=== PATIENT | male | born 1930 | race Caucasian/White ===

== ENCOUNTER → 2016-05-10 | Outpatient (CLI) | payer BC ==
[~2016-05-10] MED LIST: ACET-1311 PO; DONE10TA12 PO; HYDR-5688 PO; LVNIS30 SQ; NMN10 PO; OSEL30CA PO; POLY335019 PO; VENL150T33 PO; [UNRECOGNIZED DRUG - CODE] PO
[2016-05-10 15:38] LABS: URINE APPEARANCE TURBID (CLEAR); URINE BILIRUBIN NEG (NEG); URINE COLOR YELLOW; URINE EPITHELIAL CELL AUTO 0-5 /lpf (0-5); URINE NITRITE NEG (NEG); URINE SPECIFIC GRAVITY 1.021 (1.000-1.030); UROBILINOGEN NEG (NEG)
[2016-05-10 15:40] LABS: MANUAL MICROSCOPIC REQUIRED? NO; REVIEW REQ? NO
== END | disposition home or self-care (01) ==
LOC: C.LABOUTLO 14:13
PROVIDERS: ATTEND Internal Medicine
DX: R41.0 Disorientation, unspecified (principal)

== ENCOUNTER 2016-06-02 11:50 | Inpatient (IN) | payer BC, OTHER ==
[~2016-06-02] VITALS: Ht 172.7 cm; Wt 64.2 kg
[~2016-06-02 11:50] MED LIST changes: -HYDR-5688 PO; -LVNIS30 SQ; -OSEL30CA PO; -[UNRECOGNIZED DRUG - CODE] PO
--- NOTE | 2016-06-02 12:12 | EMERGENCY ROOM VISIT NOTE ---
History Report prepared by Josee: Dae Gastelum Under the Supervision of: Dr. Vik Parks M.D. First contact with patient: 12:00 Chief Complaint: LEG PAIN,LEG INJURY Stated Complaint: LEFT UPPER LEG/HIP PAIN UNABLE TO WALK History of Present Illness The patient is a 85 year old male who presents to the Emergency Room with complaints of sharp left hip pain that began a couple of days ago. He rates his pain a 5/10 in severity. He is a resident at [facility], and he is on the dementia floor. This history is limited, but provided by his son due to the patient's dementia. The patient was found on the floor this morning. They are unsure if he fell, but they believe that he did due to him being on the floor. They deny any loss of consciousness. The patient's pain worsens with movement and weight bearing. Source of History: family History Limited By: AMS Onset: a couple of days ago Position: leg (left) Symptom Intensity: 5/10 Quality: sharp Timing: worsening Modifying Factors (Worsening): movement, other (weight) Associated Symptoms: No LOC Review of Systems Limited due to AMS. Please see Additional Medical History Sheet. Past Medical & Surgical Medical Problems: (1) Dementia (2) Pneumonia Family History Omitted due to patient age Social History Smoking Status: Never Smoker Smokeless Tobacco Use: No Drug Use: none Housing Status: assisted living Occupation Status: retired Current/Historical Medications Scheduled Donepezil Hydrochloride (Aricept), 10 MG PO HS Memantine (Namenda), 10 MG PO BID Oseltamivir Phosphate (Tamiflu), 1 CAP PO QPM Polyethylene Glycol 3350 (Miralax), 17 GM PO BID Venlafaxine Hcl (Venlafaxine Hcl Er), 150 MG PO DAILY Scheduled PRN Acetaminophen (Tylenol), 325 MG PO Q4H PRN for Fever Acetaminophen (Tylenol), 325 MG PO Q6 PRN for Pain Allergies Coded Allergies: No Known Allergies (Unverified , 03/09/16) Physical Exam Vital Signs Date Time Temp Pulse Resp B/P Pulse Ox O2 Delivery O2 Flow Rate FiO2 06/02/16 17:12 72 17 130/68 93 Room Air 06/02/16 13:34 17 158/70 06/02/16 11:53 36.3 79 18 143/74 93 Room Air Physical Exam GENERAL: Patient awake, alert. Patient follows commands. Patient does not appear toxic. Patient is cooperative. Consistent with moderate to severe dementia. Patient is adequately hydrated and well-nourished. SKIN: No erythema, pallor, cyanosis or rash HEENT: Normal head, pupils equal, reactive to light and accommodation. LUNGS: Clear to auscultation. No wheezes, no rales, no rhonchi. HEART: No murmurs. No gallops. No rubs ABDOMEN: No masses, no rebound, no hepatomegaly or splenomegaly. PELVIS: Negative to pelvic rock. Tenderness to left buttock area. EXTREMITIES: 1+ pretibial edema bilaterally. Pain in left hip with adduction and internal rotation. NEUROLOGIC: Cranial nerves II-XII within normal limits. No gross motor sensory function deficits. Medical Decision & Procedures ER Provider Diagnostic Interpretation: Radiology results are stated below per my review and radiologist interpretation: LEFT PELVIS/UNILATERAL HIP 2-3VIEWS CLINICAL HISTORY: Fall. Left hip pain. COMPARISON STUDY: Pelvis 03/09/2016. FINDINGS: No acute fracture or dislocation within the pelvis or hips. Moderate right and severe left hip osteoarthritis is again noted. The sacrum appears intact. IMPRESSION: No acute fracture or dislocation within the pelvis or hips. Electronically signed by: Cristobal Kuo M.D. 06/02/2016 12:52 PM Dictated Date/Time: 06/02/2016 12:[address] DOSE: 437.99 mGy.cm HISTORY: Fall with left hip pain. TECHNIQUE: Multiaxial CT images of the left hip were performed and reformatted in the sagittal and coronal plane without the use of contrast. COMPARISON: Pelvis and left hip 06/02/2016. FINDINGS: Severe left hip osteoarthritis is again noted. No acute fractures within the visualized pelvis. Small soft tissue contusion within the subcutaneous fat of the left lateral hip. Best seen on axial image 268 there is a subtle fracture through the posterior base of the greater trochanter. This does not clearly extend through the intertrochanteric portion of the femur. No dislocation within the left hip. IMPRESSION: Subtle nondisplaced fracture at the posterior base of the greater trochanter. This does not clearly extend to the intertrochanteric portion of the left femur. However, follow-up left hip MRI is recommended to exclude an occult fracture at the intertrochanteric portion of the left femur. Electronically signed by: Cristobal Kuo M.D. 06/02/2016 1:42 PM Dictated Date/Time: 06/02/2016 1:32 PM MRI left hip LOWER EXT JOINT WITHOUT CLINICAL HISTORY: HIP FX SEE CT trauma. Pain. TECHNIQUE: Transaxial acquisition with multi axial reformatted images COMPARISON STUDY: CT stated same date. FINDINGS: Limited study technically due to considerable patient motion. Regional rather a Morphis increase in signal of the intertrochanteric region of the left hip. Mild degree of surrounding soft tissue as well as bone marrow edematous change. Significant degenerative change of the hips bilaterally. No acute bony abnormality of the acetabular regions. All major muscle bundles appear to be intact. IMPRESSION: 1. Limited study technically due to severe patient motion. 2. High suspicion of a nondisplaced cortical fracture intertrochanteric region left hip 3. Moderate surrounding bone marrow as well as soft tissue edematous change. 4. Significant degenerative change of the hips bilaterally Electronically signed by: Dominic Dey M.D. 06/02/2016 5:05 PM Dictated Date/Time: 06/02/2016 5:04 PM CHEST ONE VIEW PORTABLE CLINICAL HISTORY: HIP FX pain COMPARISON STUDY: 03/09/2016 FINDINGS: Small parenchymal infiltrate left base. Lungs otherwise are clear. Diaphragms smooth. Small fixed hiatal hernia. IMPRESSION: Parenchymal infiltrate left base. Small fixed hiatal hernia. Electronically signed by: Dominic Dey M.D. 06/02/2016 2:50 PM Dictated Date/Time: 06/02/2016 2:50 PM Laboratory Results 06/02/16 14:20 06/02/16 14:20 Test 06/02/16 14:20 Red Blood Count 4.00 M/uL (4.7-6.1) Mean Corpuscular Volume 92.8 fL (80-100) Mean Corpuscular Hemoglobin 31.5 pg (25-34) Mean Corpuscular Hemoglobin Concent 34.0 g/dl (32-36) RDW Standard Deviation 44.3 fL (36.4-46.3) RDW Coefficient of Variation 13.0 % (11.5-14.5) Mean Platelet Volume 9.6 fL (7.4-10.4) Prothrombin Time 11.4 SECONDS (9.0-12.0) Prothromb Time International Ratio 1.1 (0.9-1.1) Activated Partial Thromboplast Time 35.5 SECONDS (21.0-31.0) Partial Thromboplastin Ratio 1.4 Anion Gap 10.0 mmol/L (3-11) Est Creatinine Clear Calc Drug Dose 40.7 ml/min Estimated GFR () 58.1 Estimated GFR (Non- 50.1 BUN/Creatinine Ratio 29.7 (10-20) Calcium Level 8.8 mg/dl (8.5-10.1) Total Bilirubin 0.5 mg/dl (0.2-1) Aspartate Amino Transf (AST/SGOT) 25 U/L (15-37) Alanine Aminotransferase (ALT/SGPT) 22 U/L (12-78) Alkaline Phosphatase 55 U/L (45-117) Total Protein 7.2 gm/dl (6.4-8.2) Albumin 3.2 gm/dl (3.4-5.0) Globulin 4.0 gm/dl (2.5-4.0) Albumin/Globulin Ratio 0.8 (0.9-2) Laboratory results as stated above per my review. ECG Indication: altered mental status Rate (beats per minute): 62 Rhythm: sinus rhythm Findings: nonspecific-ST abn, no ectopy ED Course 1200: Past medical records reviewed. The patient was evaluated in room A10. A complete history and physical examination was performed. 1434: I spoke with the patient's family at this time. I explained what further testing will be done. 1530: Dr. Hurst of [facility] evaluated the patient at this time. He gave me his medical opinion. 1732: Upon reevaluation, the patient is resting. I discussed today's findings with his family. They verbalized agreement of the treatment plan. [facility] the [facility] for further management. Medical Decision Nurses notes reviewed. Medical history sheet reviewed. Differential diagnosis includes but is not limited to: hip fracture, contusion, and degenerative joint disease. History from the patient is limited due to his significant dementia. I did obtain further history from the patient's son. The patient can no longer walk. Multiple labs, EKG and imaging were obtained. Please see above. He was found on the floor. Initial x-ray did not reveal fracture but subsequent CT and then MRI did reveal a greater trochanteric fracture and possible intertrochanteric fracture. Case was discussed with the orthopedist and with the hospitalist. I also discussed the case multiple times with the patient's son. Consults Time Called: 1725 Consulting Physician: Dr. Manolo Cuellar Hospitalist Returned Call: 1732 She will be evaluating the patient for further management. Additional Consults: Time Called: 1530 Consulted Physician: Dr. Hurst [facility] Returned Call: 1535 Additional Comments: He evaluated the patient and gave me his medical opinion. Impression Primary Impression: Fracture of hip, left, closed Scribe Attestation The scribe's documentation has been prepared under my direction and personally reviewed by me in its entirety. I confirm that the note above accurately reflects all work, treatment, procedures, and medical decision making performed by me. Departure Information Dispostion Being Evaluated By Hospitalist Referrals Neto Candelaria D.O. (PCP) Patient Instructions My [facility]
--- NOTE | 2016-06-02 12:53 | DIAGNOSTIC IMAGING REPORT ---
LEFT PELVIS/UNILATERAL HIP 2-3VIEWS CLINICAL HISTORY: Fall. Left hip pain. COMPARISON STUDY: Pelvis 03/09/2016. FINDINGS: No acute fracture or dislocation within the pelvis or hips. Moderate right and severe left hip osteoarthritis is again noted. The sacrum appears intact. IMPRESSION: No acute fracture or dislocation within the pelvis or hips. Electronically signed by: Cristobal Kuo M.D. 06/02/2016 12:52 PM Dictated Date/Time: 06/02/2016 12:49 PM
[2016-06-02] MEDS ORDERED: OSEL30CA PO (12:59)
--- NOTE | 2016-06-02 13:42 | DIAGNOSTIC IMAGING REPORT ---
LEFT HIP CT CT DOSE: 437.99 mGy.cm HISTORY: Fall with left hip pain. TECHNIQUE: Multiaxial CT images of the left hip were performed and reformatted in the sagittal and coronal plane without the use of contrast. COMPARISON: Pelvis and left hip 06/02/2016. FINDINGS: Severe left hip osteoarthritis is again noted. No acute fractures within the visualized pelvis. Small soft tissue contusion within the subcutaneous fat of the left lateral hip. Best seen on axial image 268 there is a subtle fracture through the posterior base of the greater trochanter. This does not clearly extend through the intertrochanteric portion of the femur. No dislocation within the left hip. IMPRESSION: Subtle nondisplaced fracture at the posterior base of the greater trochanter. This does not clearly extend to the intertrochanteric portion of the left femur. However, follow-up left hip MRI is recommended to exclude an occult fracture at the intertrochanteric portion of the left femur. Electronically signed by: Cristobal Kuo M.D. 06/02/2016 1:42 PM Dictated Date/Time: 06/02/2016 1:32 PM
[2016-06-02 14:34] LABS: HEMATOCRIT 37.1 % (42-52); MEAN CELL VOLUME 92.8 fL (80-100); MEAN CORPUSCULAR HEMOGLOBIN 31.5 pg (25-34); MEAN PLATELET VOLUME 9.6 fL (7.4-10.4); PLATELET COUNT 163 K/uL (130-400); WHITE BLOOD COUNT 8.99 K/uL (4.8-10.8)
[2016-06-02 14:44] LABS: INR 1.1 (0.9-1.1); PARTIAL THROMBOPLASTIN RATIO 1.4; PROTHROMBIN TIME (PATIENT) 11.4 SECONDS (9.0-12.0)
[2016-06-02 14:49] LABS: BUN/CREATININE RATIO 29.7 (10-20); CALCIUM 8.8 mg/dl (8.5-10.1); CREATININE 1.3 mg/dl (0.60-1.40); POTASSIUM 3.6 mmol/L (3.5-5.1)
[2016-06-02 14:52] LABS: ALB/GLOB RATIO 0.8 (0.9-2)
--- NOTE | 2016-06-02 14:52 | DIAGNOSTIC IMAGING REPORT ---
CHEST ONE VIEW PORTABLE CLINICAL HISTORY: HIP FX pain COMPARISON STUDY: 03/09/2016 FINDINGS: Small parenchymal infiltrate left base. Lungs otherwise are clear. Diaphragms smooth. Small fixed hiatal hernia. IMPRESSION: Parenchymal infiltrate left base. Small fixed hiatal hernia. Electronically signed by: Dominic Dey M.D. 06/02/2016 2:50 PM Dictated Date/Time: 06/02/2016 2:50 PM
--- NOTE | 2016-06-02 17:07 | DIAGNOSTIC IMAGING REPORT ---
MRI left hip LOWER EXT JOINT WITHOUT CLINICAL HISTORY: HIP FX SEE CT trauma. Pain. TECHNIQUE: Transaxial acquisition with multi axial reformatted images COMPARISON STUDY: CT stated same date. FINDINGS: Limited study technically due to considerable patient motion. Regional rather a Morphis increase in signal of the intertrochanteric region of the left hip. Mild degree of surrounding soft tissue as well as bone marrow edematous change. Significant degenerative change of the hips bilaterally. No acute bony abnormality of the acetabular regions. All major muscle bundles appear to be intact. IMPRESSION: 1. Limited study technically due to severe patient motion. 2. High suspicion of a nondisplaced cortical fracture intertrochanteric region left hip 3. Moderate surrounding bone marrow as well as soft tissue edematous change. 4. Significant degenerative change of the hips bilaterally Electronically signed by: Dominic Dey M.D. 06/02/2016 5:05 PM Dictated Date/Time: 06/02/2016 5:04 PM
--- NOTE | 2016-06-02 17:28 | ORTHOPEDIC CONSULTATION ---
DATE OF CONSULTATION: 06/02/2016 EMERGENCY ROOM CONSULTATION HISTORY OF PRESENT ILLNESS: This is an 85-year-old gentleman seen at the request of the Emergency Department for left hip pain. Apparently this 85-year-old resident of [facility] began having left hip pain approximately 2 days ago. His history is poor due to dementia, but his son provided history that the patient was found on the floor this morning at [facility], unsure if he fell but he was having difficulty ambulating after he was found. Denied any loss of consciousness. Pain worsens with movement and weightbearing. PAST MEDICAL HISTORY: Dementia. PAST SURGICAL HISTORY: Noncontributory. ALLERGIES: No known drug allergies. MEDICATIONS: Aricept 10 mg p.o. at bedtime, Namenda 10 mg p.o. b.i.d., Tamiflu 1 cap p.o. q.p.m., MiraLax 17 g p.o. b.i.d., venlafaxine 150 mg p.o. daily, p.r.n. Tylenol for fever or pain. SOCIAL HISTORY: Denies tobacco use. Denies drug use. Denies alcohol use. Lives in assisted living, he is retired. PHYSICAL EXAMINATION: GENERAL: This is an 85-year-old gentleman who is awake and alert. He follows simple commands; however, he has features of dementia and he does offer unrelated stories during discussion. Moderate to severe dementia. He is appropriately nourished and hydrated. EXTREMITIES: Examination of left hip demonstrates skin warm, dry and intact. No obvious abrasions. He has minor tenderness to palpation over the left greater trochanter. He has discomfort with adduction and internal rotation of the left hip. No direct tenderness with palpation of the left groin. Heel strike is negative. Pedal pulses are palpable with mild edema in bilateral lower extremities. Radiographs reviewed and noted to be unremarkable. CT scan reviewed, demonstrates a nondisplaced subtle fracture of the posterior base of the greater trochanter without obvious propagation into the anterior aspect of the greater trochanter. Fracture line does not clearly extend into the intertrochanteric portion of left femur. MRI images reviewed, high signal in the greater trochanter extending into the mid portion of the proximal central femur. No obvious extension into the intertrochanteric region of the hip. IMPRESSION: Left greater tuberosity nondisplaced fracture without clear extension into the intertrochanteric region of the hip. We will await official findings and reading from the radiologist to offer final recommendations, however, the patient is having difficulty with ambulation, will have to be assist x1 with a walker due to his hip pain and dementia. We will follow with you. Thank you for the opportunity to consult in the care of this patient. BELEN
[2016-06-02] MEDS ORDERED: OXYCODONE HCL IR 5 MG TAB (IMMEDIATE RELEASE) PO PRN (18:30)
[2016-06-02] MEDS ORDERED: ACETAMINOPHEN 325 MG TAB PO PRN (18:30)
[2016-06-02] MEDS ORDERED: ACETAMINOPHEN 325 MG TAB PO SCH (18:30)
[2016-06-02 20:11] VITALS: BP 158/70; PULSE 71; TEMP 37; O2SAT 94; Ht 172.7 cm; Wt 64.2 kg
[2016-06-02 21:00] VITALS: O2SAT 94
[2016-06-02] MEDS ORDERED: OSELTAMIVIR PHOSPHATE 6 MG/ML SUSP PO SCH (21:00)
[2016-06-02] MEDS ORDERED: CEFTRIAXONE SOD INJ 1 GM in DEXTROSE 5% ADD-VANTAGE 50ML 50 ML IV SCH (21:00)
[2016-06-02] MEDS ORDERED: OSELTAMIVIR PHOSPHATE SUSP 30 MG/5 ML UDP PO SCH (21:00)
[2016-06-02 21:07] LABS: URINE APPEARANCE CLEAR (CLEAR); URINE BILIRUBIN NEG (NEG); URINE COLOR YELLOW; URINE EPITHELIAL CELL AUTO 20-30 /lpf (0-5); URINE NITRITE NEG (NEG); URINE SPECIFIC GRAVITY 1.028 (1.000-1.030); UROBILINOGEN NEG (NEG)
[2016-06-02 21:21] LABS: MANUAL MICROSCOPIC REQUIRED? NO; REVIEW REQ? NO
--- NOTE | 2016-06-02 21:50 | DIAGNOSTIC IMAGING REPORT ---
HEAD CT NONCONTRAST CT DOSE: 537.48 mGy.cm HISTORY: Trauma. Change in mental status. unwitnessed fall with possible trauma to head per family TECHNIQUE: Multiaxial CT images of the head were performed without the use of intravenous contrast. Comparison: 03/09/2016. Findings: Similar findings of generalized cerebellar as well as cerebral atrophy. Ventricular system is midline. Moderate chronic small vessel change. No acute intracranial abnormality. Impression: Chronic and age-related change. No acute process. Electronically signed by: Dominic Dey M.D. 06/02/2016 9:49 PM Dictated Date/Time: 06/02/2016 9:47 PM
[2016-06-02] MEDS: DONEPEZIL HCL 10 MG TAB PO SCH (21:58)
[2016-06-02] MEDS: MEMANTINE 10 MG TAB PO SCH (21:59)
[2016-06-02] MEDS ORDERED: AZITHROMYCIN IV 500 MG in DEXTROSE 5% 250ML 250 ML IV SCH (22:00)
[2016-06-02] MEDS: HEPARIN SOD 5000 UNIT/0.5 ML CARP SQ SCH (22:03)
[2016-06-02 22:30] LABS: INFLUENZA B PCR Neg for Influ B (NEG)
[2016-06-02 22:31] LABS: INFLUENZA A PCR POS for Influ A (NEG)
--- NOTE | 2016-06-02 23:03 | History and Physical ---
History & Physical Date & Time of Service: Jun 02, 2016 at 18:54 Chief Complaint: Left Upper Leg/Hip Pain Unable To Walk Primary Care Physician: Neto Candelaria D.O. History of Present Illness 85 yoM with dementia presents tonight as a transfer from [facility] after being found down on the floor of his room this morning. Per nurse at [facility] who has seen him daily, he was found conscious and alert. Over the past few days, she denies seeing any fevers, signs of UTI (such as increased urination), abdominal pain, diarrhea, nausea or vomiting. She states that he was started on Tamiflu for flu prophylaxis because of an outbreak in the half-way. He also has been coughing over the past 1-2 days. This was also corroborated by his son who has seen him daily. He reports that he plays pool with his dad quite often, and that while they were playing on Friday, he noticed severe fatigue and some shakiness that was unusual for him when he went to make shots. He states that he again played 3 games of pool with his dad yesterday, and again noted fatigue and some cough. He felt that there was some L hip pain present over the past 1-2 days, so it might have been possible that he experienced a fall two nights ago. The patient is unable to talk or follow commands for me gennaro. He has had no medication changes since prior lists from previous ER visits, and son corroborates this. The patient has experienced multiple falls over the past year including August, October, and March of 2016 where he was brought into the [facility] ER. The son states that he lives on the dementia ceballos because he wanders at night. Past Medical/Surgical History Medical Problems: (1) Dementia Status: Chronic Family History Omitted due to patient age Non-contributory Social History History gathered from son only as patient is demented Smoking Status: Never Smoker Smokeless Tobacco Use: No Alcohol Use: none Drug Use: none Housing status: half-way (lives on dementia ceballos in a half-way) Occupational Status: retired Immunizations History of Influenza Vaccine: Yes Influenza Vaccine Date: Dec 04, 2015 History of Tetanus Vaccine?: Yes Tetanus Immunization Date: Aug 02, 1996 History of Pneumococcal: Yes Pneumococcal Date: Jul 03, 1996 History of Hepatitis B Vaccine: No Multi-Drug Resistant Organisms History of MDRO: No Allergies Coded Allergies: No Known Allergies (Unverified , 03/09/16) Home Medications Scheduled Donepezil Hydrochloride (Aricept), 10 MG PO HS Memantine (Namenda), 10 MG PO BID Oseltamivir Phosphate (Tamiflu), 1 CAP PO QPM Polyethylene Glycol 3350 (Miralax), 17 GM PO BID Venlafaxine Hcl (Venlafaxine Hcl Er), 150 MG PO DAILY Scheduled PRN Acetaminophen (Tylenol), 325 MG PO Q4H PRN for Fever Acetaminophen (Tylenol), 325 MG PO Q6 PRN for Pain Review of Systems Limited ROS from son and nurse at [facility] where he resides Constitutional: + fatigue, + weakness, No fever Respiratory: + cough, No wheezing Cardiovascular: No chest pain Abdomen: No GI bleeding, No diarrhea, No pain, No vomiting Musculoskeletal: + problem reported (limping and moaning when attempted to stand patient this am in his room) Genitourinary - Male: No urinary frequency, No urinary incontinence Endocrine: No excessive urination, No fatigue Integumentary: No new/changing skin lesions Physical Exam Vital Signs Date Time Temp Pulse Resp B/P Pulse Ox O2 Delivery O2 Flow Rate FiO2 06/02/16 17:12 72 17 130/68 93 Room Air 06/02/16 13:34 17 158/70 06/02/16 11:53 36.3 79 18 143/74 93 Room Air GEN: elderly, frail, in no acute distress, alert and appropriate HEENT: NC/AT, R eye 3mm nonreactive to light, L eye 1-2mm and reactive to light , normal sclerae CARDIO: reg rate, S1/2 heard without m/g/r LUNGS: CTA bilaterally, crackles at the L base however, very difficult to appreciating breath sounds as he won't follow instruction to take a deep breath rales or wheezes, good diaphragmatic excursion ABD: soft, non-tender, non-distended, no rebound or guarding EXTREMITY: RP and DP palpable 2+ bilat, no LE swelling or edema, extremities are warm and well-perfused, palpated all extremities and did not detect any grimacing or withdrawal as a sign of pain. NEURO: reflexes are 2/4 in knees, otherwise cannot assess as patient is demented and unable to follow instructions MUSC: moves all extremities equally SKIN: warm and dry Diagnostics Laboratory Results Results Past 24 Hours Test 06/02/16 14:20 Range/Units White Blood Count 8.99 4.8-10.8 K/uL Red Blood Count 4.00 4.7-6.1 M/uL Hemoglobin 12.6 14.0-18.0 g/dL Hematocrit 37.1 42-52 % Mean Corpuscular Volume 92.8 80-100 fL Mean Corpuscular Hemoglobin 31.5 25-34 pg Mean Corpuscular Hemoglobin Concent 34.0 32-36 g/dl RDW Standard Deviation 44.3 36.4-46.3 fL RDW Coefficient of Variation 13.0 11.5-14.5 % Platelet Count 163 130-400 K/uL Mean Platelet Volume 9.6 7.4-10.4 fL Prothrombin Time 11.4 9.0-12.0 SECONDS Prothromb Time International Ratio 1.1 0.9-1.1 Activated Partial Thromboplast Time 35.5 21.0-31.0 SECONDS Partial Thromboplastin Ratio 1.4 Sodium Level 142 136-145 mmol/L Potassium Level 3.6 3.5-5.1 mmol/L Chloride Level 104 98-107 mmol/L Carbon Dioxide Level 28 21-32 mmol/L Anion Gap 10.0 3-11 mmol/L Blood Urea Nitrogen 39 7-18 mg/dl Creatinine 1.30 0.60-1.40 mg/dl Est Creatinine Clear Calc Drug Dose 40.7 ml/min Estimated GFR () 58.1 Estimated GFR (Non- 50.1 BUN/Creatinine Ratio 29.7 10-20 Random Glucose 112 70-99 mg/dl Calcium Level 8.8 8.5-10.1 mg/dl Total Bilirubin 0.5 0.2-1 mg/dl Aspartate Amino Transf (AST/SGOT) 25 15-37 U/L Alanine Aminotransferase (ALT/SGPT) 22 12-78 U/L Alkaline Phosphatase 55 45-117 U/L Total Protein 7.2 6.4-8.2 gm/dl Albumin 3.2 3.4-5.0 gm/dl Globulin 4.0 2.5-4.0 gm/dl Albumin/Globulin Ratio 0.8 0.9-2 Microbiology Results 06/02/16 Blood Culture, Chyna Batch Pending 06/02/16 Blood Culture, Chyna Batch Pending Diagnostic Radiology HEAD CT WITHOUT CONTRAST: Impression: Chronic and age-related change. No acute process. CXR IMPRESSION: Parenchymal infiltrate left base. Small fixed hiatal hernia. MRI- LOWER EXTREMITY IMPRESSION: 1. Limited study technically due to severe patient motion. 2. High suspicion of a nondisplaced cortical fracture intertrochanteric region left hip 3. Moderate surrounding bone marrow as well as soft tissue edematous change. 4. Significant degenerative change of the hips bilaterally HIP CT: IMPRESSION: Subtle nondisplaced fracture at the posterior base of the greater trochanter. This does not clearly extend to the intertrochanteric portion of the left femur. However, follow-up left hip MRI is recommended to exclude an occult fracture at the intertrochanteric portion of the left femur. HIP XRAY: IMPRESSION: No acute fracture or dislocation within the pelvis or hips. EKG SR 62 Impression Assessment and Plan 85 yoM with flu and CAP presents s/p fall with femur fracture s/p fall at home. 1. CAP 2/2 bacteria versus influenza- cough and lung exam consistent with LRTI. No sepsis. Cont Ceftriaxone/Azithro. Changing Tamiflu from prophylactic once daily to BID for treatment purposes. Cont on droplet precautions. Blood and sputum cultures-pending 2. s/p mechanical fall with fracture of L hip-Ortho consulted, no recommendations for operative management at this time. Pt was ambulatory just yesterday. Will cont on bedrest for now with scheduled APAP as patient cannot ask for pain medications. Oxy for increased pain PRN. Appreciate ortho recs. UA/UCx pending 3. Dementia-cont Namenda and Aricept--progressive over last year per son. Wanders so resides on the dementia ceballos at [facility]. 4. Dysphagia and edentulous-speech path consult in am--cont aspiration precautions 5. Fatigue /2 #1 Nutrition-reg diet, soft mech DO NOT RESUSCITATE Dispo-uncertain at this time. Evy Delaney [facility] Telemetry Advanced Directives Existing Advance Directive: Yes Existing Living Will: Yes Existing Power of Home Security Alarm Installer: Yes Existing Health Care Proxy: Yes Resuscitation Status DO NOT RESUSCITATE VTE Prophylaxis VTE Risk Assessment Done? Y/N: Yes Risk Level: Moderate
[2016-06-02] MEDS: OSELTAMIVIR PHOSPHATE 6 MG/ML SUSP PO SCH (23:05)
[2016-06-02 23:16] VITALS: BP 159/72; PULSE 63; TEMP 37; O2SAT 94
[2016-06-03] VITALS (8 sets, daily range): BP systolic 120–172; BP diastolic 62–85; PULSE 59–70; TEMP 36.7–37.2; O2SAT 92–95
[2016-06-03] MEDS: HEPARIN SOD 5000 UNIT/0.5 ML CARP SQ SCH ×3 (06:00→22:46)
[2016-06-03 06:54] LABS: HEMATOCRIT 35.8 % (42-52); MEAN CELL VOLUME 92.5 fL (80-100); MEAN CORPUSCULAR HEMOGLOBIN 30.7 pg (25-34); MEAN CORPUSCULAR HGB CONC 33.2 g/dl (32-36); MEAN PLATELET VOLUME 9.7 fL (7.4-10.4); PLATELET COUNT 167 K/uL (130-400); RED BLOOD COUNT 3.87 M/uL (4.7-6.1); WHITE BLOOD COUNT 7.66 K/uL (4.8-10.8)
[2016-06-03 07:24] LABS: BUN/CREATININE RATIO 26.7 (10-20); CALCIUM 8.3 mg/dl (8.5-10.1); CREATININE 1.1 mg/dl (0.60-1.40); POTASSIUM 3.1 mmol/L (3.5-5.1)
[2016-06-03] MEDS: VENLAFAXINE HCL XR 150 MG CAPXR PO SCH (07:45)
[2016-06-03] MEDS: MEMANTINE 10 MG TAB PO SCH ×2 (07:45→22:39)
[2016-06-03] MEDS: OSELTAMIVIR PHOSPHATE 6 MG/ML SUSP PO SCH (08:41)
[2016-06-03] MEDS ORDERED: POTASSIUM CHLORIDE 20 MEQ TABCR PO ONE (10:15)
[2016-06-03] MEDS: POTASSIUM CHLR 10 MEQ / WTR 10 MEQ in PREMIXED WATER 100 ML IV SCH ×2 (10:31→11:37)
--- NOTE | 2016-06-03 15:17 | Progress Note ---
Medicine Progress Note Date & Time of Visit: Jun 03, 2016 at 15:00. Subjective 85 yo M with dementia is more awake today and verbally communicating with me. He reports some residual cough but no shortness of breath. He can't remember anything overnight or from this morning. Appears relaxed and calm and pain is controlled. Tolerating PO No other issues are present Speech saw him this morning and changed diet to pureed Potassium replaced this morning Ortho plans for OR in am. Objective Last 8 Hrs Date Time Temp Pulse Resp B/P Pulse Ox O2 Delivery O2 Flow Rate FiO2 06/03/16 12:07 36.8 60 20 148/76 95 Room Air 06/03/16 12:00 Room Air 06/03/16 08:00 Room Air 06/03/16 07:38 36.9 59 20 120/62 92 Room Air Physical Exam: GEN: WNWD, in no acute distress, alert and appropriate HEENT: NC/AT, normal sclerae CARDIO: reg rate, S1/2 heard without m/g/r LUNGS: CTA bilaterally, no crackles, rales or wheezes, good diaphragmatic excursion ABD: soft, non-tender, non-distended, no rebound or guarding, +BS EXTREMITY: RP and DP palpable 2+ bilat, no LE swelling or edema, extremities are warm and well-perfused NEURO: CN 2-12 grossly intact, limited as patient has dementia and a broken hip MUSC: limited exam with broken hip, appears non-focal SKIN: warm and dry Laboratory Results: Last 24 Hours Test 06/02/16 20:45 06/03/16 06:43 Urine Color YELLOW Urine Appearance CLEAR Urine pH 5.0 Urine Specific Clemons 1.028 Urine Protein 3+ Urine Glucose (UA) NEG Urine Ketones TRACE Urine Occult Blood 2+ Urine Nitrite NEG Urine Bilirubin NEG Urine Urobilinogen NEG Urine Leukocyte Esterase NEG Urine WBC (Auto) 1-5 /hpf Urine RBC (Auto) 5-10 /hpf Urine Hyaline Casts (Auto) 5-10 /lpf Urine Epithelial Cells (Auto) 20-30 /lpf Urine Bacteria (Auto) NEG Influenza Type A (RT-PCR) POS for Influ A Influenza Type B (RT-PCR) Neg for Influ B White Blood Count 7.66 K/uL Red Blood Count 3.87 M/uL Hemoglobin 11.9 g/dL Hematocrit 35.8 % Mean Corpuscular Volume 92.5 fL Mean Corpuscular Hemoglobin 30.7 pg Mean Corpuscular Hemoglobin Concent 33.2 g/dl RDW Standard Deviation 43.9 fL RDW Coefficient of Variation 13.0 % Platelet Count 167 K/uL Mean Platelet Volume 9.7 fL Sodium Level 144 mmol/L Potassium Level 3.1 mmol/L Chloride Level 106 mmol/L Carbon Dioxide Level 28 mmol/L Anion Gap 10.0 mmol/L Blood Urea Nitrogen 29 mg/dl Creatinine 1.10 mg/dl Est Creatinine Clear Calc Drug Dose 45.4 ml/min Estimated GFR () 71.1 Estimated GFR (Non- 61.3 BUN/Creatinine Ratio 26.7 Random Glucose 84 mg/dl Calcium Level 8.3 mg/dl Date/Time Source Procedure Growth Status 06/02/16 19:18 Blood Blood Culture Pending Received 06/02/16 19:11 Blood Blood Culture Pending Received 06/02/16 20:45 Nasal MRSA DNA Surveillance Screen - Final Specimen Negative for MRSA by DNA Probe Complete 06/02/16 20:45 Urine,Catheterized Urine Culture - Preliminary PIN-POINT GROWTH PRESENT, REINCUBATING. Resulted Assessment & Plan 85 yoM with flu and CAP presents s/p fall with femur fracture s/p fall at home. Pt states that he remembers slipping on the floor just outside of his room. 1. CAP 2/2 bacteria versus influenza- cough and lung exam consistent with LRTI. No sepsis. Cont Ceftriaxone/Azithro. Changing Tamiflu from prophylactic once daily to BID for treatment purposes. Cont on droplet precautions. Blood and sputum cultures negative so far 2. s/p mechanical fall with fracture of L hip-Ortho consulted, plan for OR in am. Pt is ambulatory at baseline. Will cont on bedrest for now with scheduled APAP as I question whether patient will ask for pain medications. Oxy for increased pain PRN. Appreciate ortho recs. UA/UCx negative 3. Dementia-cont Namenda and Aricept--progressive over last year per son. Wanders so resides on the dementia ceballos at [facility]. 4. Dysphagia and edentulous-speech path consult in am--cont aspiration precautions. Recommended pureed diet. 5. hypokalemia-replaced this am. Recheck in am prior to OR. Nutrition-reg diet, pureed. NPO p MN DO NOT RESUSCITATE DO [facility] Consult[facility]: Ortho Current Inpatient Medications: Current Inpatient Medications Medications (Trade) Dose Ordered Sig/[place] Route Start Time Stop Time Status Last Admin Dose Admin Heparin Sodium (Porcine) (Heparin Sq 5000 Unit/0.5ml) 5,000 unit Q8 SQ 06/02/16 22:00 07/02/16 21:59 06/03/16 13:57 5,000 UNIT Acetaminophen (Tylenol Tab) 650 mg Q4H PRN PO 06/02/16 18:30 07/02/16 18:29 Oxycodone HCl 5 mg 5 mg Q4H PRN PO 06/02/16 18:30 06/16/16 18:29 Ceftriaxone Sodium 1 gm/ Dextrose 50 ml @ 100 mls/hr Q24H IV 06/02/16 21:00 06/09/16 20:59 06/02/16 21:23 100 MLS/HR Azithromycin/ Dextrose (Zithromax IV/D5 250ml) 255 ml @ 125 mls/hr Q24H IV 06/02/16 22:00 06/09/16 21:59 06/02/16 21:59 125 MLS/HR Donepezil HCl (Aricept Tab) 10 mg HS PO 06/02/16 21:00 07/02/16 20:59 06/02/16 21:58 10 MG Memantine (Namenda Tab) 10 mg BID PO 06/02/16 21:00 07/02/16 20:59 06/03/16 07:45 10 MG Venlafaxine HCl 150 mg 150 mg DAILY PO 06/03/16 09:00 07/03/16 08:59 06/03/16 07:45 150 MG Potassium Chloride/Prmx (Kcl 10 Meq / Wtr/Premixed Water) 100 ml @ 100 mls/hr Q1H IV 06/03/16 10:00 06/03/16 11:59 06/03/16 11:37 100 MLS/HR Potassium Chloride (Klor-Con Tab) 40 meq TODAY@1015 ONCE PO 06/03/16 10:15 06/03/16 10:16 06/03/16 10:56 40 MEQ Oseltamivir Phosphate (Tamiflu Susp) 30 mg BID PO 06/03/16 21:00 06/07/16 22:41
--- NOTE | 2016-06-03 19:51 | Orthopedic Progress Note ---
Orthopedic Progress Note Date of Service Jun 03, 2016. Subjective Reports: pain controlled w PO medications, Denies: SOB, calf pain, chest pain, complaints, light headedness, nausea / vomiting Objective calves soft nontender, N/V intact, hip located, capillary refill less than 2 sec., toes mobile + FABERE L LE. No distinct pain with heel strike L LE. Vague discomfort with AROM/PROM L hip/LE. Difficult exam due to dementia. DP/PT 2/4 B LE. Date Time Temp Pulse Resp B/P Pulse Ox O2 Delivery O2 Flow Rate FiO2 06/03/16 16:45 36.9 62 16 150/78 94 Room Air 06/03/16 15:58 36.8 60 20 95 06/03/16 12:07 36.8 60 20 148/76 95 Room Air 06/03/16 12:00 Room Air 06/03/16 08:00 Room Air 06/03/16 07:38 36.9 59 20 120/62 92 Room Air 06/03/16 04:00 93 Room Air 06/03/16 03:55 36.7 60 18 130/65 93 Room Air 06/03/16 00:01 94 Room Air 06/02/16 23:16 37.0 63 18 159/72 94 Room Air 06/02/16 21:00 94 Room Air 06/02/16 20:20 70 17 129/61 94 06/02/16 20:11 37.0 71 18 158/70 94 Room Air 06/02/16 20:02 70 17 129/61 94 Room Air Laboratory Results 24 Hours: Test 06/03/16 06:43 Hematocrit 35.8 % Hemoglobin 11.9 g/dL Assessment & Plan Assessment: Presumed nondisplaced intertrochanteric fracture left hip per MRI and CT scans. High risk for displacement due to patient dementia and wandering. Plan: To OR tomorrow for ORIF w/ troch nail L LE if pulmonary status/medical condition optimized per Medicine Svc. NPO after MN Consent for surgery. Cont DVT prophylaxis- TEDs and SCDs
[2016-06-03] MEDS ORDERED: OSELTAMIVIR PHOSPHATE SUSP 30 MG/5 ML UDP PO SCH (21:00)
[2016-06-03] MEDS ORDERED: AZITHROMYCIN 250 MG TAB PO ONE (22:00)
[2016-06-03] MEDS: DONEPEZIL HCL 10 MG TAB PO SCH (22:39)
[2016-06-03] MEDS: OSELTAMIVIR PHOSPHATE SUSP 30 MG/5 ML UDP PO SCH (22:41)
[2016-06-03] MEDS: CEFDINIR 250 MG/5 ML 60 ML PO SCH (22:41)
[2016-06-04] VITALS (11 sets, daily range): BP systolic 109–185; BP diastolic 62–102; PULSE 53–79; TEMP 36.4–37; O2SAT 94–100
[2016-06-04 05:40] LABS: HEMATOCRIT 36.8 % (42-52); MEAN CELL VOLUME 93.4 fL (80-100); MEAN CORPUSCULAR HEMOGLOBIN 31.2 pg (25-34); MEAN CORPUSCULAR HGB CONC 33.4 g/dl (32-36); MEAN PLATELET VOLUME 9.9 fL (7.4-10.4); PLATELET COUNT 214 K/uL (130-400); RED BLOOD COUNT 3.94 M/uL (4.7-6.1); WHITE BLOOD COUNT 7.59 K/uL (4.8-10.8)
[2016-06-04 06:14] LABS: BUN/CREATININE RATIO 23.8 (10-20); CALCIUM 8.4 mg/dl (8.5-10.1); POTASSIUM 3.5 mmol/L (3.5-5.1)
[2016-06-04] MEDS: MEMANTINE 10 MG TAB PO SCH ×3 (09:00→20:33)
[2016-06-04] MEDS: VENLAFAXINE HCL XR 150 MG CAPXR PO SCH ×2 (09:00→09:10)
[2016-06-04] MEDS: OSELTAMIVIR PHOSPHATE SUSP 30 MG/5 ML UDP PO SCH ×3 (09:00→20:32)
[2016-06-04] MEDS: CEFDINIR 250 MG/5 ML 60 ML PO SCH ×3 (09:04→21:48)
[2016-06-04] MEDS ORDERED: HydrALAZINE HCL 20 MG/ML VIAL IV. PRN (10:45)
--- NOTE | 2016-06-04 11:12 | Orthopedic Progress Note ---
Orthopedic Progress Note Date of Service Jun 04, 2016. Subjective Reports: feeling well, pain controlled w PO medications, Denies: SOB, calf pain , chest pain, light headedness, nausea / vomiting Objective N/V intact, toes mobile Patient comfortable in bed this AM, has dementia. Did not know he hurt his hip when questioned until he moved it and said, oh yeah my hip hurts. Poor historian. Date Time Temp Pulse Resp B/P Pulse Ox O2 Delivery O2 Flow Rate FiO2 06/04/16 09:08 177/89 06/04/16 08:42 36.7 59 18 163/102 94 Room Air 06/04/16 03:49 59 161/81 06/04/16 00:25 159/76 06/03/16 23:50 Room Air 06/03/16 22:54 37.2 70 16 172/85 95 Room Air 06/03/16 18:00 Room Air 06/03/16 16:45 36.9 62 16 150/78 94 Room Air 06/03/16 15:58 36.8 60 20 95 06/03/16 12:07 36.8 60 20 148/76 95 Room Air 06/03/16 12:00 Room Air Laboratory Results 24 Hours: Test 06/04/16 05:05 Hematocrit 36.8 % Hemoglobin 12.3 g/dL Assessment & Plan Assessment: Presumed nondisplaced intertrochanteric fracture left hip per MRI and CT scans. High risk for displacement due to patient dementia and wandering. Plan: To OR today w Dr. Wilson, for ORIF w/ troch nail L LE if pulmonary status/ medical condition optimized per Medicine Svc. NPO Consent for surgery- will need son who is POA to sign when gets to hospital prior to surgery as he is not here or reachable by phone at this point even for a verbal. Left message for POA to call back scott. Cont DVT prophylaxis- TEDs and SCDs
[2016-06-04] MEDS ORDERED: CEFAZOLIN SOD 1000MG/55 ML D5W IV ONE (13:30)
[2016-06-04] MEDS ORDERED: NURSING VERBAL MED ORDER STA (13:30)
--- NOTE | 2016-06-04 13:36 | History & Physical Bridge Note ---
H&P Re-Evaluation Bridge Note: I have examined the patient, reviewed the History & Physical and in the interval since the performance of the History & Physical I have noted the following changes of clinical significance: No changes noted
[2016-06-04] MEDS ORDERED: KETAMINE HCL INJ 50 MG/ML 10 ML VIAL ONE (13:39)
[2016-06-04] MEDS ORDERED: FENTANYL CITRATE INJ 50 MCG/1 ML 2 ML VIAL ONE (13:39)
[2016-06-04] MEDS ORDERED: BUPIVACAINE 0.5 % 5 MG/1 ML PF 10ML VIAL ONE ×2 (13:42→13:44)
[2016-06-04] MEDS ORDERED: PROPOFOL IV EMULSION 10 MG/ML 20 ML VIAL IV ONE (14:25)
[2016-06-04] MEDS ORDERED: LIDOCAINE HCL 2% 2 ML VIAL (20MG/ML) ONE (14:25)
--- NOTE | 2016-06-04 14:40 | [facility] Post Operative Brief Note ---
Immediate Operative Summary Operative Date Jun 04, 2016. Pre-Operative Diagnosis intertroch left Post-Operative Diagnosis same Procedure(s) Performed Closed locked nailing Surgeon Katie Turning Lathe Tender Surgeon(s) none Estimated Blood Loss 20cc Findings incomplete fracture Specimens none Disposition Recovery Room / PACU
[2016-06-04] MEDS ORDERED: MoRPHine SULFATE 2 MG/ML CARP IV PRN (14:45)
[2016-06-04] MEDS ORDERED: ONDANSETRON INJ 2 MG/ML 2 ML VIAL IV PRN ×2 (14:45→15:15)
[2016-06-04] MEDS ORDERED: SOD PHOSPHATE/SOD BIPHOSPHATE ENEMA 132 ML BTL PR PRN (14:45)
[2016-06-04] MEDS ORDERED: MAGNESIUM HYDROXIDE SUSP 30 ML UDC PO PRN (14:45)
[2016-06-04] MEDS ORDERED: METOCLOPRAMIDE HCL INJ 5 MG/ML 2 ML VIAL IV PRN (14:45)
[2016-06-04] MEDS ORDERED: BISACODYL 10 MG SUPP PR PRN (14:45)
[2016-06-04] MEDS ORDERED: HYDROCODONE/ACETAMOPHEN 5/325MG TAB PO PRN (14:45)
[2016-06-04] MEDS ORDERED: MoRPHine SULFATE 4 MG/ML 1 ML CARP\\VIAL IV PRN (14:45)
--- NOTE | 2016-06-04 14:58 | DIAGNOSTIC IMAGING REPORT ---
INTRAOPERATIVE LEFT HIP 4 VIEWS CLINICAL HISTORY: Left hip fracture COMPARISON STUDY: CT scan dated 06/02/2016 FLUOROSCOPY TIME: 31 seconds 4 fluoroscopic spot images were acquired. FINDINGS: There is internal fixation of the patient's left hip fracture with a femoral neck nail and interlocking intramedullary lorena. IMPRESSION: Internally fixated left hip fracture in anatomic alignment Electronically signed by: Gonzalo Pina M.D. 06/04/2016 2:57 PM Dictated Date/Time: 06/04/2016 2:56 PM
[2016-06-04] MEDS ORDERED: LACTATED RINGER'S 1000ML 1,000 ML IV PRN (15:09)
[2016-06-04] MEDS ORDERED: FENTANYL CITRATE INJ 50 MCG/1 ML 2 ML VIAL IV PRN (15:15)
--- NOTE | 2016-06-04 15:31 | OPERATIVE REPORT ---
DATE OF OPERATION: 06/04/2016 PREOPERATIVE DIAGNOSIS: Incomplete intertrochanteric hip fracture, left hip. POSTOPERATIVE DIAGNOSIS: Incomplete intertrochanteric hip fracture, left hip. PROCEDURE: Closed locked short trochanteric nailing, left hip. RESIDENT SERVICES MANAGER: Dr. Wilson. ANESTHESIA: Spinal. COMPLICATIONS: None. DESCRIPTION OF PROCEDURE: Following induction of adequate spinal anesthesia, the patient was placed on the fracture table and the left hip was prepped and draped in usual sterile manner. Longitudinal incision was made from the tip of the greater trochanter proximally. Subcutaneous tissue was sharply dissected and the fascia was incised exposing the tip of the greater trochanter. A drill tipped wire was used to enter the femoral canal through the tip of the trochanter and this was noted to be centered in both AP and lateral planes. This was overdrilled using a 17 mm drill and an 11 mm short troch nail was impacted into position. It was locked proximally with a 100 mm helical blade and this was locked using the locking screw. Distal locking was carried out using a single 40 mm cortical screw. The insertion device was removed. The final x-rays documenting appropriate placement of the nail were taken and the wound was irrigated and closed using #1 Vicryl and johnson. Sterile dressing of Adaptic, 4 x 4s, ABDs and foam tape was applied. The patient tolerated the procedure well. I attest to the content of the Intraoperative Record and any orders documented therein. Any exceptio ns are noted below.
--- NOTE | 2016-06-04 15:32 | Anesthesiology Progress Note ---
Anesthesia Post Op Note Date & Time Jun 04, 2016 at 15:32 Vital Signs Pain Intensity: 0 Vital Signs Past 12 Hours Date Time Temp Pulse Resp B/P Pulse Ox O2 Delivery O2 Flow Rate FiO2 06/04/16 15:25 52 14 155/74 98 Nasal Cannula 2 06/04/16 15:15 52 17 129/63 99 Nasal Cannula 2 06/04/16 15:05 51 14 140/69 99 Nasal Cannula 2 06/04/16 14:55 53 17 147/72 96 Nasal Cannula 2 06/04/16 14:47 37.0 58 16 174/87 96 Nasal Cannula 2 06/04/16 11:17 60 16 152/89 06/04/16 09:08 177/89 06/04/16 08:42 36.7 59 18 163/102 94 Room Air 06/04/16 08:02 Room Air 06/04/16 03:49 59 161/81 Notes Mental Status: alert / awake / arousable, participated in evaluation Nausea / Vomiting: adequately controlled Pain: adequately controlled Airway Patency, RR, SpO2: stable & adequate BP & HR: stable & adequate Hydration State: stable & adequate Neuraxial Anesthesia: was administered, sensory block is resolving Anesthetic Complications: no major complications apparent
[2016-06-04] MEDS ORDERED: D5W AND 1/2NSS + 20MEQ KCL 1,000 ML IV SCH (15:50)
--- NOTE | 2016-06-04 16:03 | Progress Note ---
Medicine Progress Note Date & Time of Visit: Jun 04, 2016 at 15:31. Subjective Pt was seen and examined lying in bed very comfortable with no distress pt said that he feels fine he denies any chest pain, palpitation, dizziness and SOB Pt said that he does not have any pain at this time Objective Last 8 Hrs Date Time Temp Pulse Resp B/P Pulse Ox O2 Delivery O2 Flow Rate FiO2 06/04/16 15:25 52 14 155/74 98 Nasal Cannula 2 06/04/16 15:15 52 17 129/63 99 Nasal Cannula 2 06/04/16 15:05 51 14 140/69 99 Nasal Cannula 2 06/04/16 14:55 53 17 147/72 96 Nasal Cannula 2 06/04/16 14:47 37.0 58 16 174/87 96 Nasal Cannula 2 06/04/16 11:17 60 16 152/89 06/04/16 09:08 177/89 06/04/16 08:42 36.7 59 18 163/102 94 Room Air 06/04/16 08:02 Room Air Physical Exam: General- No acute distress Head- atraumatic Eyes- PERRL, EOMI ENT- oropharynx clear Neck- supple, no JVD Lungs- clear to auscultation and percussion Heart- regular rhythm; no murmur Abdomen- normal bowel sounds, soft Extremities- no calf tenderness Neuro- alert, oriented, PERRL, EOMI; Skin- warm & dry Laboratory Results: Last 24 Hours Test 06/04/16 05:05 06/04/16 14:42 White Blood Count 7.59 K/uL Red Blood Count 3.94 M/uL Hemoglobin 12.3 g/dL Hematocrit 36.8 % Mean Corpuscular Volume 93.4 fL Mean Corpuscular Hemoglobin 31.2 pg Mean Corpuscular Hemoglobin Concent 33.4 g/dl RDW Standard Deviation 44.4 fL RDW Coefficient of Variation 12.9 % Platelet Count 214 K/uL Mean Platelet Volume 9.9 fL Sodium Level 144 mmol/L Potassium Level 3.5 mmol/L Chloride Level 108 mmol/L Carbon Dioxide Level 27 mmol/L Anion Gap 9.0 mmol/L Blood Urea Nitrogen 24 mg/dl Creatinine 1.00 mg/dl Est Creatinine Clear Calc Drug Dose 49.9 ml/min Estimated GFR () 79.7 Estimated GFR (Non- 68.8 BUN/Creatinine Ratio 23.8 Random Glucose 84 mg/dl Calcium Level 8.4 mg/dl Assessment & Plan CAP CXR showed parenchymal infiltrate left base Received rocephin and zithromax. Abx changed to cefdinir BID Continue follow up blood cx Continue monitor INFLUENZA A Continue Tamiflu to complete 5 days. Left Hip Fracture s/p mechanical fall Pt denies any SOB, Chest pain, Orthopnea. He was ambulatory at baseline. Pt is stable to go to OR. He is in OR now. Continue pain management as per ortho Dementia-cont Namenda and Aricept-- progressive over last year per son. Tello so resides on the dementia ceballos at [facility]. Dysphagia Speech path consult in am--cont aspiration precautions. Recommended pureed diet. Hypokalemia- Stable Continue monitor BMP CODE STATUS DNR Consultants: Ortho Current Inpatient Medications: Current Inpatient Medications Medications (Trade) Dose Ordered Sig/[place] Route Start Time Stop Time Status Last Admin Dose Admin Heparin Sodium (Porcine) (Heparin Sq 5000 Unit/0.5ml) 5,000 unit Q8 SQ 06/02/16 22:00 07/02/16 21:59 Future Hold 06/03/16 22:46 5,000 UNIT Acetaminophen (Tylenol Tab) 650 mg Q4H PRN PO 06/02/16 18:30 07/02/16 18:29 Oxycodone HCl (Roxicodone Immediate Rel Tab) 5 mg Q4H PRN PO 06/02/16 18:30 06/16/16 18:29 Donepezil HCl (Aricept Tab) 10 mg HS PO 06/02/16 21:00 07/02/16 20:59 06/03/16 22:39 10 MG Memantine (Namenda Tab) 10 mg BID PO 06/02/16 21:00 07/02/16 20:59 06/04/16 09:11 10 MG Venlafaxine HCl (effeXOR EXTENDED REL CAP) 150 mg DAILY PO 06/03/16 09:00 07/03/16 08:59 06/04/16 09:10 150 MG Oseltamivir Phosphate (Tamiflu Susp) 30 mg BID PO 06/03/16 21:00 06/07/16 22:41 06/04/16 10:26 30 MG Cefdinir (Omnicef Susp) 300 mg Q12H PO 06/03/16 22:00 06/10/16 21:59 06/04/16 10:26 300 MG Hydralazine HCl 10 mg 10 mg Q6 PRN IV. 06/04/16 10:45 07/04/16 10:44 Sodium Chloride (1/2 Nss 1000ml) 1,000 ml @ 50 mls/hr Q20H IV 06/04/16 14:42 07/04/16 14:41 UNV Morphine Sulfate 2 mg 2 mg Q1H PRN IV 06/04/16 14:45 06/18/16 14:44 UNV Cefazolin Sodium 1000 mg/Dextrose 55 ml @ 100 mls/hr PREOP IV 06/05/16 06:00 06/05/16 06:32 UNV Potassium Chloride/Dextrose/ Sod Cl (D5W And 1/2nss + 20meq KCl) 1,000 ml @ 100 mls/hr Q10H IV 06/04/16 14:42 07/04/16 14:41 UNV Acetaminophen/ Hydrocodone Bitart ([place] 5/325 Tab) 1-2 TABS FOR PAIN 1 TABLET ... Q6H PRN PO 06/04/16 14:45 06/18/16 14:44 UNV Morphine Sulfate (MoRPHine SULFATE INJ) 3 mg 3XDQ4 PRN IV 06/04/16 14:45 06/18/16 14:44 UNV Magnesium Hydroxide (Milk Of Magnesia Susp) 30 ml Q6H PRN PO 06/04/16 14:45 07/04/16 14:44 UNV Bisacodyl (Dulcolax Supp) 10 mg DAILY PRN [place] 06/04/16 14:45 07/04/16 14:44 UNV Sodium Biphosphate/ Sodium Phosphate (Fleet Enema) 132 ml DAILY PRN [place] 06/04/16 14:45 07/04/16 14:44 UNV Ondansetron HCl (Zofran Inj) 4 mg Q6H PRN IV 06/04/16 14:45 07/04/16 14:44 UNV Metoclopramide HCl 10 mg 10 mg Q6H PRN IV 06/04/16 14:45 07/04/16 14:44 UNV Cefazolin Sodium/ Dextrose (Ancef Iv/D5 50ml) 55 ml @ 100 mls/hr Q8H IV 06/04/16 14:45 06/04/16 23:17 UNV Fentanyl Citrate (Fentanyl Inj) 25 mcg Q5M PRN IV 06/04/16 15:15 06/05/16 15:14 UNV Ondansetron HCl 4 mg 4 mg ONE PRN IV 06/04/16 15:15 UNV Lactated Ringer's (Lr 1000ml) 1,000 ml @ 100 mls/hr Q10H PRN IV 06/04/16 15:09 06/05/16 15:08 UNV
[2016-06-04] MEDS ORDERED: NURSING VERBAL MED ORDER ONE (16:15)
[2016-06-04] MEDS: SODIUM CHLORIDE 0.45% 1000ML 1,000 ML IV SCH (16:31)
[2016-06-04] MEDS: DONEPEZIL HCL 10 MG TAB PO SCH (20:33)
[2016-06-04] MEDS: CEFAZOLIN IV 1,000 MG in DEXTROSE 5% 50ML 50 ML IV SCH (21:48)
[2016-06-05] VITALS (7 sets, daily range): BP systolic 143–176; BP diastolic 79–86; PULSE 66–76; TEMP 36.2–37.3; O2SAT 92–96
[2016-06-05] MEDS: CEFAZOLIN IV 1,000 MG in DEXTROSE 5% 50ML 50 ML IV SCH (05:54)
[2016-06-05] MEDS ORDERED: CEFAZOLIN IV 1,000 MG in DEXTROSE 5% 50ML 50 ML IV SCH (06:00)
[2016-06-05 06:03] LABS: HEMATOCRIT 37.1 % (42-52); MEAN CELL VOLUME 92.5 fL (80-100); MEAN CORPUSCULAR HEMOGLOBIN 31.4 pg (25-34); PLATELET COUNT 253 K/uL (130-400); RED BLOOD COUNT 4.01 M/uL (4.7-6.1); WHITE BLOOD COUNT 8.05 K/uL (4.8-10.8)
[2016-06-05 06:41] LABS: BUN/CREATININE RATIO 19.9 (10-20); CALCIUM 7.9 mg/dl (8.5-10.1); CREATININE 0.87 mg/dl (0.60-1.40); POTASSIUM 3.3 mmol/L (3.5-5.1)
--- NOTE | 2016-06-05 07:53 | Orthopedic Progress Note ---
Orthopedic Progress Note Date of Service Jun 05, 2016. Subjective Post OP Day: 1 Additional Notes: Pt awake, alert. Confused but pleasant. Answers some questions appropriately. Appears comfortable. Objective calves soft nontender, N/V intact, dressing C/D/I, A&O x3, toes mobile Date Time Temp Pulse Resp B/P Pulse Ox O2 Delivery O2 Flow Rate FiO2 06/05/16 06:57 36.7 66 15 161/83 95 Room Air 06/04/16 23:03 37.0 73 20 109/62 94 Room Air 06/04/16 20:10 Room Air 06/04/16 18:40 79 16 137/74 97 Nasal Cannula 2.0 06/04/16 17:40 36.4 66 18 154/81 100 Nasal Cannula 2.0 06/04/16 16:45 64 18 177/77 100 Nasal Cannula 2.0 06/04/16 16:15 53 16 185/73 100 Nasal Cannula 2.0 06/04/16 15:45 36.4 56 16 162/78 96 Nasal Cannula 2.0 06/04/16 15:45 96 Nasal Cannula 2.0 06/04/16 15:35 36.2 53 15 164/76 98 Nasal Cannula 2 06/04/16 15:25 52 14 155/74 98 Nasal Cannula 2 06/04/16 15:15 52 17 129/63 99 Nasal Cannula 2 06/04/16 15:05 51 14 140/69 99 Nasal Cannula 2 06/04/16 14:55 53 17 147/72 96 Nasal Cannula 2 06/04/16 14:47 37.0 58 16 174/87 96 Nasal Cannula 2 06/04/16 11:17 60 16 152/89 06/04/16 09:08 177/89 06/04/16 08:42 36.7 59 18 163/102 94 Room Air 06/04/16 08:02 Room Air Laboratory Results 24 Hours: Test 06/05/16 05:30 Hematocrit 37.1 % Hemoglobin 12.6 g/dL Assessment & Plan Assessment: POD 1 s/p Left TFN Pnuemonia Flu Plan: Plan for PT/OT as able WBAT LLE MAY RESUME SQ HEPARIN TODAY Inhouse Planning Pain Management: [place], Morphine DVT Prophylaxis: TEDs, SCDs, other (Heparin SQ) Discharge Planning Discharge Planning: uncertain
[2016-06-05] MEDS ORDERED: POTASSIUM CHLORIDE 10 MEQ TABCR PO ONE (09:00)
[2016-06-05] MEDS: VENLAFAXINE HCL XR 150 MG CAPXR PO SCH (09:08)
[2016-06-05] MEDS: MEMANTINE 10 MG TAB PO SCH ×2 (09:08→22:01)
[2016-06-05] MEDS: OSELTAMIVIR PHOSPHATE SUSP 30 MG/5 ML UDP PO SCH ×2 (09:16→22:03)
[2016-06-05] MEDS: CEFDINIR 250 MG/5 ML 60 ML PO SCH ×2 (10:52→22:01)
[2016-06-05] MEDS: SODIUM CHLORIDE 0.45% 1000ML 1,000 ML IV SCH (12:13)
--- NOTE | 2016-06-05 13:46 | Anesthesiology Progress Note ---
Anesthesia Post Op Note Date & Time Jun 05, 2016 at 13:46 Vital Signs Pain Intensity: 0.0 Vital Signs Past 12 Hours Date Time Temp Pulse Resp B/P Pulse Ox O2 Delivery O2 Flow Rate FiO2 06/05/16 12:30 143/79 06/05/16 11:30 37.3 72 20 176/81 92 Room Air 06/05/16 10:55 37.3 67 16 168/86 96 Room Air 06/05/16 06:57 36.7 66 15 161/83 95 Room Air Notes Mental Status: see Notes Pt Amnestic to Procedure: Yes Nausea / Vomiting: adequately controlled Pain: adequately controlled Airway Patency, RR, SpO2: stable & adequate BP & HR: stable & adequate Hydration State: stable & adequate Neuraxial Anesthesia: sensory block resolved Anesthetic Complications: no major complications apparent OK by RN
--- NOTE | 2016-06-05 17:53 | Progress Note ---
Medicine Progress Note Date & Time of Visit: Jun 05, 2016 at 17:30. Subjective Pt was seen and examined Pt sitting in bed with no distress Confused but able to follow commands denies any chest pain, palpitation, dizziness and sob. Objective Last 8 Hrs Date Time Temp Pulse Resp B/P Pulse Ox O2 Delivery O2 Flow Rate FiO2 06/05/16 15:05 36.2 76 16 156/80 92 Room Air 06/05/16 12:30 143/79 06/05/16 11:30 37.3 72 20 176/81 92 Room Air 06/05/16 10:55 37.3 67 16 168/86 96 Room Air Physical Exam: General- No acute distress Head- atraumatic Eyes- PERRL, EOMI ENT- oropharynx clear Neck- supple, no JVD Lungs- clear to auscultation and percussion Heart- regular rhythm; no murmur Abdomen- normal bowel sounds, soft Extremities- no calf tenderness Neuro- alert, oriented, PERRL, EOMI; Skin- warm & dry Laboratory Results: Last 24 Hours Test 06/04/16 18:10 06/05/16 05:30 Calcium Level 8.5 mg/dl 7.9 mg/dl White Blood Count 8.05 K/uL Red Blood Count 4.01 M/uL Hemoglobin 12.6 g/dL Hematocrit 37.1 % Mean Corpuscular Volume 92.5 fL Mean Corpuscular Hemoglobin 31.4 pg Mean Corpuscular Hemoglobin Concent 34.0 g/dl RDW Standard Deviation 43.0 fL RDW Coefficient of Variation 12.7 % Platelet Count 253 K/uL Mean Platelet Volume 10.0 fL Sodium Level 140 mmol/L Potassium Level 3.3 mmol/L Chloride Level 104 mmol/L Carbon Dioxide Level 24 mmol/L Anion Gap 12.0 mmol/L Blood Urea Nitrogen 17 mg/dl Creatinine 0.87 mg/dl Est Creatinine Clear Calc Drug Dose 57.4 ml/min Estimated GFR () 91.9 Estimated GFR (Non- 79.3 BUN/Creatinine Ratio 19.9 Random Glucose 111 mg/dl Assessment & Plan CAP CXR showed parenchymal infiltrate left base Received rocephin and zithromax. Abx changed to cefdinir BID Continue follow up blood cx Afebrile, no wbc continue abx INFLUENZA A Continue Tamiflu to complete 5 days. Left Hip Fracture s/p mechanical fall Pt denies any SOB, Chest pain, Orthopnea. He was ambulatory at baseline. Pt is stable to go to OR. He is in OR now. 06/05 S/P day 1 post-op Left TFN Continue pain management as per ortho Incentive spirometry Monitor h/h PT/OT Dementia-cont Namenda and Aricept-- progressive over last year per son. [place]anders so resides on the dementia ceballos at [facility]. Dysphagia Speech path consult in am--cont aspiration precautions. Recommended pureed diet. Hypokalemia- K 3.3 K replaced Continue monitor BMP DVT px heparin sub resume CODE STATUS DNR Consultants: Ortho Current Inpatient Medications: Current Inpatient Medications Medications (Trade) Dose Ordered Sig/[place] Route Start Time Stop Time Status Last Admin Dose Admin Acetaminophen (Tylenol Tab) 650 mg Q4H PRN PO 06/02/16 18:30 07/02/16 18:29 Oxycodone HCl (Roxicodone Immediate Rel Tab) 5 mg Q4H PRN PO 06/02/16 18:30 06/16/16 18:29 Donepezil HCl (Aricept Tab) 10 mg HS PO 06/02/16 21:00 07/02/16 20:59 06/04/16 20:33 10 MG Memantine (Namenda Tab) 10 mg BID PO 06/02/16 21:00 07/02/16 20:59 06/05/16 09:08 10 MG Venlafaxine HCl (effeXOR EXTENDED REL CAP) 150 mg DAILY PO 06/03/16 09:00 07/03/16 08:59 06/05/16 09:08 150 MG Oseltamivir Phosphate (Tamiflu Susp) 30 mg BID PO 06/03/16 21:00 06/07/16 22:41 06/05/16 09:16 30 MG Cefdinir (Omnicef Susp) 300 mg Q12H PO 06/03/16 22:00 06/10/16 21:59 06/05/16 10:52 300 MG Hydralazine HCl 10 mg 10 mg Q6 PRN IV. 06/04/16 10:45 07/04/16 10:44 06/04/16 16:37 10 MG Sodium Chloride (1/2 Nss 1000ml) 1,000 ml @ 50 mls/hr Q20H IV 06/04/16 15:50 07/04/16 15:49 06/05/16 12:13 50 MLS/HR Morphine Sulfate (MoRPHine SULFATE INJ) 2 mg Q1H PRN IV 06/04/16 14:45 06/18/16 14:44 Acetaminophen/ Hydrocodone Bitart ([place] 5/325 Tab) 1-2 TABS FOR PAIN 1 TABLET ... Q6H PRN PO 06/04/16 14:45 06/18/16 14:44 Morphine Sulfate (MoRPHine SULFATE INJ) 3 mg 3XDQ4 PRN IV 06/04/16 14:45 06/18/16 14:44 Magnesium Hydroxide (Milk Of Magnesia Susp) 30 ml Q6H PRN PO 06/04/16 14:45 07/04/16 14:44 Bisacodyl (Dulcolax Supp) 10 mg DAILY PRN [place] 06/04/16 14:45 07/04/16 14:44 Sodium Biphosphate/ Sodium Phosphate (Fleet Enema) 132 ml DAILY PRN [place] 06/04/16 14:45 07/04/16 14:44 Ondansetron HCl (Zofran Inj) 4 mg Q6H PRN IV 06/04/16 14:45 07/04/16 14:44 Metoclopramide HCl (Reglan Inj) 10 mg Q6H PRN IV 06/04/16 14:45 07/04/16 14:44 Heparin Sodium (Porcine) (Heparin Sq 5000 Unit/0.5ml) 5,000 unit Q12 SQ 06/05/16 21:00 07/05/16 20:59
[2016-06-05] MEDS: DONEPEZIL HCL 10 MG TAB PO SCH (22:00)
[2016-06-05] MEDS: HEPARIN SOD 5000 UNIT/0.5 ML CARP SQ SCH (22:01)
[2016-06-06 06:03] LABS: HEMATOCRIT 36.2 % (42-52); MEAN CELL VOLUME 92.1 fL (80-100); MEAN CORPUSCULAR HEMOGLOBIN 31.6 pg (25-34); MEAN CORPUSCULAR HGB CONC 34.3 g/dl (32-36); PLATELET COUNT 293 K/uL (130-400); RED BLOOD COUNT 3.93 M/uL (4.7-6.1); WHITE BLOOD COUNT 7.75 K/uL (4.8-10.8)
[2016-06-06 06:36] LABS: BUN/CREATININE RATIO 16.8 (10-20); CREATININE 0.87 mg/dl (0.60-1.40); POTASSIUM 3.6 mmol/L (3.5-5.1)
--- NOTE | 2016-06-06 07:45 | Orthopedic Progress Note ---
Orthopedic Progress Note Date of Service Jun 06, 2016. Subjective Post OP Day: 2 Additional Notes: Pt minimally verbal Objective dressing C/D/I (Surgical dressing d/c'd, wounds benign, new dressing applied) Date Time Temp Pulse Resp B/P Pulse Ox O2 Delivery O2 Flow Rate FiO2 06/05/16 23:30 Room Air 06/05/16 23:26 36.9 68 16 156/81 93 Room Air 06/05/16 16:00 92 Room Air 06/05/16 15:05 36.2 76 16 156/80 92 Room Air 06/05/16 12:30 143/79 06/05/16 11:30 37.3 72 20 176/81 92 Room Air 06/05/16 10:55 37.3 67 16 168/86 96 Room Air Laboratory Results 24 Hours: Test 06/06/16 05:39 Hematocrit 36.2 % Hemoglobin 12.4 g/dL Assessment & Plan Assessment: POD #2 s/p Left TFN Pnuemonia Flu Plan: Med management- cont IV abx for pneumo DVT prophylaxis- Heparin Plan for PT/OT as able- WBAT D/C planning Inhouse Planning Pain Management: [place], Morphine DVT Prophylaxis: TEDs, SCDs, other (Heparin SQ) Discharge Planning Discharge Planning: uncertain
[2016-06-06 08:10] VITALS: BP 156/77; PULSE 65; TEMP 36.9; O2SAT 92
[2016-06-06] MEDS: VENLAFAXINE HCL XR 150 MG CAPXR PO SCH (09:30)
[2016-06-06] MEDS: CEFDINIR 250 MG/5 ML 60 ML PO SCH ×2 (09:30→21:12)
[2016-06-06] MEDS: MEMANTINE 10 MG TAB PO SCH ×2 (09:30→20:55)
[2016-06-06] MEDS: HEPARIN SOD 5000 UNIT/0.5 ML CARP SQ SCH ×2 (09:33→21:05)
[2016-06-06] MEDS: OSELTAMIVIR PHOSPHATE SUSP 30 MG/5 ML UDP PO SCH ×2 (09:36→20:55)
[2016-06-06 15:21] VITALS: BP 135/75; PULSE 72; TEMP 36.7; O2SAT 93
[2016-06-06 16:30] VITALS: O2SAT 93
--- NOTE | 2016-06-06 16:40 | Progress Note ---
Medicine Progress Note Date & Time of Visit: Jun 06, 2016 at 16:34. Subjective Pt was seen and examined Lying in bed very comfortable with no distress able to follow command denies any complaint Objective Last 8 Hrs Date Time Temp Pulse Resp B/P Pulse Ox O2 Delivery O2 Flow Rate FiO2 06/06/16 15:21 36.7 72 18 135/75 93 Room Air Physical Exam: General- No acute distress Head- atraumatic Eyes- PERRL, EOMI ENT- oropharynx clear Neck- supple, no JVD Lungs- clear to auscultation and percussion Heart- regular rhythm; no murmur Abdomen- normal bowel sounds, soft Extremities- no calf tenderness Neuro- alert, oriented, PERRL, EOMI; Skin- warm & dry Laboratory Results: Last 24 Hours Test 06/06/16 05:29 06/06/16 05:39 Sodium Level 138 mmol/L Potassium Level 3.6 mmol/L Chloride Level 106 mmol/L Carbon Dioxide Level 22 mmol/L Anion Gap 10.0 mmol/L Blood Urea Nitrogen 15 mg/dl Creatinine 0.87 mg/dl Est Creatinine Clear Calc Drug Dose 57.4 ml/min Estimated GFR () 91.9 Estimated GFR (Non- 79.3 BUN/Creatinine Ratio 16.8 Random Glucose 93 mg/dl Calcium Level 8.0 mg/dl White Blood Count 7.75 K/uL Red Blood Count 3.93 M/uL Hemoglobin 12.4 g/dL Hematocrit 36.2 % Mean Corpuscular Volume 92.1 fL Mean Corpuscular Hemoglobin 31.6 pg Mean Corpuscular Hemoglobin Concent 34.3 g/dl RDW Standard Deviation 43.6 fL RDW Coefficient of Variation 12.8 % Platelet Count 293 K/uL Mean Platelet Volume 10.0 fL Assessment & Plan CAP CXR showed parenchymal infiltrate left base Received rocephin and zithromax. Abx changed to cefdinir BID Blood cx negative Continue cefdinir stable INFLUENZA A Continue Tamiflu to complete 5 days. will complete course tomorrow Left Hip Fracture s/p mechanical fall S/P day 2 post-op Left TFN pain management as per ortho Continue PT/OT waiting for placement to rehab Dementia-cont Namenda and Aricept-- progressive over last year per son. Wanders so resides on the dementia ceballos at [place]. Stable Dysphagia Speech path consult in am--cont aspiration precautions. Recommended pureed diet. Hypokalemia- Stable Continue monitor BMP resolved DVT px On heparin subq CODE STATUS DNR Consultants: Ortho Current Inpatient Medications: Current Inpatient Medications Medications (Trade) Dose Ordered Sig/[place] Route Start Time Stop Time Status Last Admin Dose Admin Acetaminophen (Tylenol Tab) 650 mg Q4H PRN PO 06/02/16 18:30 07/02/16 18:29 Oxycodone HCl (Roxicodone Immediate Rel Tab) 5 mg Q4H PRN PO 06/02/16 18:30 06/16/16 18:29 Donepezil HCl (Aricept Tab) 10 mg HS PO 06/02/16 21:00 07/02/16 20:59 06/05/16 22:00 10 MG Memantine (Namenda Tab) 10 mg BID PO 06/02/16 21:00 07/02/16 20:59 06/06/16 09:30 10 MG Venlafaxine HCl (effeXOR EXTENDED REL CAP) 150 mg DAILY PO 06/03/16 09:00 07/03/16 08:59 06/06/16 09:30 150 MG Oseltamivir Phosphate (Tamiflu Susp) 30 mg BID PO 06/03/16 21:00 06/07/16 22:41 06/06/16 09:36 30 MG Cefdinir (Omnicef Susp) 300 mg Q12H PO 06/03/16 22:00 06/10/16 21:59 06/06/16 09:30 300 MG Hydralazine HCl (HydrALAZINE INJ) 10 mg Q6 PRN IV. 06/04/16 10:45 07/04/16 10:44 06/04/16 16:37 10 MG Morphine Sulfate (MoRPHine SULFATE INJ) 2 mg Q1H PRN IV 06/04/16 14:45 06/18/16 14:44 Acetaminophen/ Hydrocodone Bitart ([place] 5/325 Tab) 1-2 TABS FOR PAIN 1 TABLET ... Q6H PRN PO 06/04/16 14:45 06/18/16 14:44 Morphine Sulfate (MoRPHine SULFATE INJ) 3 mg 3XDQ4 PRN IV 06/04/16 14:45 06/18/16 14:44 Magnesium Hydroxide (Milk Of Magnesia Susp) 30 ml Q6H PRN PO 06/04/16 14:45 07/04/16 14:44 Bisacodyl (Dulcolax Supp) 10 mg DAILY PRN [place] 06/04/16 14:45 07/04/16 14:44 Sodium Biphosphate/ Sodium Phosphate (Fleet Enema) 132 ml DAILY PRN [place] 06/04/16 14:45 07/04/16 14:44 Ondansetron HCl (Zofran Inj) 4 mg Q6H PRN IV 06/04/16 14:45 07/04/16 14:44 Metoclopramide HCl (Reglan Inj) 10 mg Q6H PRN IV 06/04/16 14:45 07/04/16 14:44 Heparin Sodium (Porcine) (Heparin Sq 5000 Unit/0.5ml) 5,000 unit Q12 SQ 06/05/16 21:00 07/05/16 20:59 06/06/16 09:33 5,000 UNIT
[2016-06-06] MEDS: DONEPEZIL HCL 10 MG TAB PO SCH (20:55)
[2016-06-06 23:08] VITALS: BP 159/84; PULSE 65; TEMP 37; O2SAT 93
[2016-06-07 06:24] LABS: HEMATOCRIT 36.6 % (42-52); MEAN CELL VOLUME 92.9 fL (80-100); MEAN CORPUSCULAR HEMOGLOBIN 31.2 pg (25-34); MEAN CORPUSCULAR HGB CONC 33.6 g/dl (32-36); MEAN PLATELET VOLUME 9.7 fL (7.4-10.4); PLATELET COUNT 338 K/uL (130-400); RED BLOOD COUNT 3.94 M/uL (4.7-6.1); WHITE BLOOD COUNT 8.26 K/uL (4.8-10.8)
[2016-06-07 06:45] LABS: BUN/CREATININE RATIO 17.4 (10-20); CALCIUM 8.3 mg/dl (8.5-10.1); CREATININE 0.87 mg/dl (0.60-1.40); POTASSIUM 3.6 mmol/L (3.5-5.1)
[2016-06-07 07:53] VITALS: BP 151/73; PULSE 55; TEMP 36.9; O2SAT 93
--- NOTE | 2016-06-07 08:27 | Orthopedic Progress Note ---
Orthopedic Progress Note Date of Service Jun 07, 2016. Subjective Post OP Day: 3 Reports: feeling well, Denies: SOB, calf pain, chest pain, light headedness, nausea / vomiting Objective calves soft nontender, N/V intact, hip located, incision C/D/I (mild ecchymosis) , A&O x3, toes mobile Date Time Temp Pulse Resp B/P Pulse Ox O2 Delivery O2 Flow Rate FiO2 06/07/16 07:53 36.9 55 17 151/73 93 Room Air 06/07/16 01:43 Room Air 06/06/16 23:08 37.0 65 16 159/84 93 Room Air 06/06/16 16:30 93 Room Air 06/06/16 15:21 36.7 72 18 135/75 93 Room Air Laboratory Results 24 Hours: Test 06/07/16 05:45 Hematocrit 36.6 % Hemoglobin 12.3 g/dL Assessment & Plan Assessment: POD #3 s/p Left TFN Pnuemonia Flu Plan: Med management- cont IV abx for pneumo DVT prophylaxis- Heparin Plan for PT/OT as able- WBAT D/C planning- REHAB VS SNF WHEN STABLE ORTHOPEDICALLY STABLE. WILL SIGN OFF. FOLLOW UP AT [facility] IN 4-6 WEEKS DC INSTRUCTIONS ON CHART. Inhouse Planning Pain Management: [place], Morphine DVT Prophylaxis: TEDs, SCDs, other (Heparin SQ) Discharge Planning Discharge Planning: uncertain
--- NOTE | 2016-06-07 08:36 | Discharge Instructions ---
Discharge Instructions Admission Reason for Admission: Fracture Of Left Hip, Closed Discharge Discharge Diagnosis / Problem: SP LEFT TFN Discharge Goals Goal(s): Decrease discomfort, Improve function, Increase independence Activity Recommendations Activity Level: Assistance Required Therapies: Physical Therapy, Occupational Therapy Weightbearing Status: Left weightbearing (as tolerated) . Additional Information Patient informed of condition: Yes Advance Directives: Yes DNR: No Level of Care: Skilled Communicable Disease: Yes Prognosis: Stable Current Hospital Diet Patient's current hospital diet: Regular Diet Discharge Diet Recommended Diet: Regular Diet Procedures Procedures Performed: Left Open Reducation Internal Fixation Trochanteric Nailing Pending Studies Studies pending at discharge: no Physician Orders On Transfer Additional Orders: DC THEE 10-14 DAYS POST OP CONT AYESHA HOSE X 4 WEEKS FOLLOW UP AT [facility] IN 4-6 WEEKS [id number] DVT PROPHYLAXIS PER MEDICAL SERVICE. Medical Emergencies . Who to Call and When: Medical Emergencies: If at any time you feel your situation is an emergency, please call 911 immediately. . Non-Emergent Contact Non-Emergency issues call your: Primary Care Provider . . "Provider Documentation" section prepared by Dolly Doyle. Core Measure Problem Core Measures: None
[2016-06-07] MEDS: HEPARIN SOD 5000 UNIT/0.5 ML CARP SQ SCH (09:19)
[2016-06-07] MEDS: MEMANTINE 10 MG TAB PO SCH (09:20)
[2016-06-07] MEDS: VENLAFAXINE HCL XR 150 MG CAPXR PO SCH (09:20)
[2016-06-07] MEDS: CEFDINIR 250 MG/5 ML 60 ML PO SCH (09:29)
[2016-06-07] MEDS: OSELTAMIVIR PHOSPHATE SUSP 30 MG/5 ML UDP PO SCH (09:31)
[2016-06-07 12:21] VITALS: BP 151/73; PULSE 55; TEMP 36.9; O2SAT 93
--- NOTE | 2016-06-07 12:50 | Progress Note ---
Medicine Progress Note Date & Time of Visit: Jun 07, 2016 at 12:34. Subjective Pt was seen and examined Lying in bed comfortable with no distress awake, following command denies any chest pain, palpitation, dizziness and sob Objective Last 8 Hrs Date Time Temp Pulse Resp B/P Pulse Ox O2 Delivery O2 Flow Rate FiO2 06/07/16 12:21 36.9 55 17 93 Room Air 06/07/16 07:53 36.9 55 17 151/73 93 Room Air 06/07/16 07:33 Room Air Physical Exam: General- No acute distress Head- atraumatic Eyes- PERRL, EOMI ENT- oropharynx clear Neck- supple, no JVD Lungs- clear to auscultation and percussion Heart- regular rhythm; no murmur Abdomen- normal bowel sounds, soft Extremities- no calf tenderness Neuro- alert, oriented, PERRL, EOMI; Skin- warm & dry Laboratory Results: Last 24 Hours Test 06/07/16 05:45 White Blood Count 8.26 K/uL Red Blood Count 3.94 M/uL Hemoglobin 12.3 g/dL Hematocrit 36.6 % Mean Corpuscular Volume 92.9 fL Mean Corpuscular Hemoglobin 31.2 pg Mean Corpuscular Hemoglobin Concent 33.6 g/dl RDW Standard Deviation 44.6 fL RDW Coefficient of Variation 13.0 % Platelet Count 338 K/uL Mean Platelet Volume 9.7 fL Sodium Level 141 mmol/L Potassium Level 3.6 mmol/L Chloride Level 107 mmol/L Carbon Dioxide Level 23 mmol/L Anion Gap 11.0 mmol/L Blood Urea Nitrogen 15 mg/dl Creatinine 0.87 mg/dl Est Creatinine Clear Calc Drug Dose 57.4 ml/min Estimated GFR () 91.9 Estimated GFR (Non- 79.3 BUN/Creatinine Ratio 17.4 Random Glucose 88 mg/dl Calcium Level 8.3 mg/dl Assessment & Plan CAP CXR showed parenchymal infiltrate left base Received rocephin and zithromax. Abx changed to cefdinir BID Blood cx negative Continue cefdinir for 5 more days stable INFLUENZA A Continue Tamiflu to complete 5 days. will complete course today Left Hip Fracture s/p mechanical fall S/P day 3 post-op Left TFN pain management as per ortho Continue PT/OT Fall precaution stable from orthopedic standpoint Follow up with [facility] between 4 to 6 weeks Will go to [facility] today for rehab Dementia-cont Namenda and Aricept-- progressive over last year per sonMarisabel Javed so resides on the dementia ceballos at [facility]. Stable Dysphagia Speech path consult in am--cont aspiration precautions. Recommended pureed diet. Hypokalemia- Stable Continue monitor BMP resolved DVT px On heparin subq CODE STATUS DNR DISPOSITION Will discharge to [facility] for rehab today DC THEE 10-14 DAYS POST OP CONT AYESHA HOSE X 4 WEEKS FOLLOW UP AT [facility] IN 4-6 WEEKS [id number] Consultants: Ortho Procedures: Closed locked short trochanteric nailing, left hip. Current Inpatient Medications: Current Inpatient Medications Medications (Trade) Dose Ordered Sig/[place] Route Start Time Stop Time Status Last Admin Dose Admin Acetaminophen (Tylenol Tab) 650 mg Q4H PRN PO 06/02/16 18:30 07/02/16 18:29 Oxycodone HCl (Roxicodone Immediate Rel Tab) 5 mg Q4H PRN PO 06/02/16 18:30 06/16/16 18:29 Donepezil HCl (Aricept Tab) 10 mg HS PO 06/02/16 21:00 07/02/16 20:59 06/06/16 20:55 10 MG Memantine (Namenda Tab) 10 mg BID PO 06/02/16 21:00 07/02/16 20:59 06/07/16 09:20 10 MG Venlafaxine HCl (effeXOR EXTENDED REL CAP) 150 mg DAILY PO 06/03/16 09:00 07/03/16 08:59 06/07/16 09:20 150 MG Oseltamivir Phosphate (Tamiflu Susp) 30 mg BID PO 06/03/16 21:00 06/07/16 22:41 06/07/16 09:31 30 MG Cefdinir (Omnicef Susp) 300 mg Q12H PO 06/03/16 22:00 06/10/16 21:59 06/07/16 09:29 300 MG Hydralazine HCl (HydrALAZINE INJ) 10 mg Q6 PRN IV. 06/04/16 10:45 07/04/16 10:44 06/04/16 16:37 10 MG Morphine Sulfate (MoRPHine SULFATE INJ) 2 mg Q1H PRN IV 06/04/16 14:45 06/18/16 14:44 Acetaminophen/ Hydrocodone Bitart ([place] 5/325 Tab) 1-2 TABS FOR PAIN 1 TABLET ... Q6H PRN PO 06/04/16 14:45 06/18/16 14:44 Morphine Sulfate (MoRPHine SULFATE INJ) 3 mg 3XDQ4 PRN IV 06/04/16 14:45 06/18/16 14:44 Magnesium Hydroxide (Milk Of Magnesia Susp) 30 ml Q6H PRN PO 06/04/16 14:45 07/04/16 14:44 Bisacodyl (Dulcolax Supp) 10 mg DAILY PRN [place] 06/04/16 14:45 07/04/16 14:44 Sodium Biphosphate/ Sodium Phosphate (Fleet Enema) 132 ml DAILY PRN [place] 06/04/16 14:45 07/04/16 14:44 Ondansetron HCl (Zofran Inj) 4 mg Q6H PRN IV 06/04/16 14:45 07/04/16 14:44 Metoclopramide HCl (Reglan Inj) 10 mg Q6H PRN IV 06/04/16 14:45 07/04/16 14:44 Heparin Sodium (Porcine) (Heparin Sq 5000 Unit/0.5ml) 5,000 unit Q12 SQ 06/05/16 21:00 07/05/16 20:59 06/07/16 09:19 5,000 UNIT
[2016-06-07] MEDS ORDERED: [UNRECOGNIZED DRUG - CODE] PO (13:00)
[2016-06-07] MEDS ORDERED: LVNIS30 SQ (13:07)
[2016-06-07] MEDS ORDERED: HYDR-5688 PO (13:10)
--- NOTE | 2016-06-07 13:22 | Discharge Summary ---
Discharge Summary Admission Date: Jun 02, 2016 at 20:10 Discharge Date: Jun 07, 2016 Discharge Disposition: Rehab Principal Diagnosis: Left Hip Fracture s/p mechanical fall Secondary Diagnoses/Problems: Left Hip Fracture S/P Left TFN Pneumonia Dementia Hypokalemia Dysphagia Procedures: Closed locked short trochanteric nailing, left hip. Consultations: Ortho Medication Reconciliation New Medications: Enoxaparin (Lovenox) 30 Mg/0.3 Ml Inj 30 MG SQ DAILY for 7 Days, SYR Can be discontinue when patient start to ambulate Cefdinir (Cefdinir) 250 Mg/5 Ml Susp 300 MG PO Q12H for 5 Days Hydrocodone/Acetaminophen 5MG/325MG ([place] 5MG/325MG) Tab 1 TAB PO Q12 PRN for Pain for 7 Days, TAB hold for lethargy and drowsiness Continued Medications: Acetaminophen (Tylenol) 325 Mg Tab 325 MG PO Q4H PRN for Fever, TAB TEMP > 100. MAX APAP = 3GM/24HRS. Acetaminophen (Tylenol) 325 Mg Tab 325 MG PO Q6 PRN for Pain, TAB MAX APAP =3GM/24HRS. Donepezil Hydrochloride (Aricept) 10 Mg Tab 10 MG PO HS, TAB Memantine (Namenda) 10 Mg Tab 10 MG PO BID, TAB Polyethylene Glycol 3350 (Miralax) 1 Pow Pow 17 GM PO BID, #255 GM Venlafaxine Hcl (Venlafaxine Hcl Er) 150 Mg Tab 150 MG PO DAILY for 30 Days, #30 TAB 2 Refills Discontinued Medications: Oseltamivir Phosphate (Tamiflu) 30 Mg Cap 1 CAP PO QPM for 5 Days, CAP Admission Information HPI (per Admitting provider): 85 yoM with dementia presents tonight as a transfer from [facility] after being found down on the floor of his room this morning. Per nurse at [facility] who has seen him daily, he was found conscious and alert. Over the past few days, she denies seeing any fevers, signs of UTI (such as increased urination), abdominal pain, diarrhea, nausea or vomiting. She states that he was started on Tamiflu for flu prophylaxis because of an outbreak in the alf. He also has been coughing over the past 1-2 days. This was also corroborated by his son who has seen him daily. He reports that he plays pool with his dad quite often, and that while they were playing on Friday, he noticed severe fatigue and some shakiness that was unusual for him when he went to make shots. He states that he again played 3 games of pool with his dad yesterday, and again noted fatigue and some cough. He felt that there was some L hip pain present over the past 1-2 days, so it might have been possible that he experienced a fall two nights ago. The patient is unable to talk or follow commands for me tonight. He has had no medication changes since prior lists from previous ER visits, and son corroborates this. The patient has experienced multiple falls over the past year including August, October, and March of 2016 where he was brought into the [facility]. The son states that he lives on the dementia ceballos because he wanders at night. Physical Exam (per Admitting): GEN: elderly, frail, in no acute distress, alert and appropriate HEENT: NC/AT, R eye 3mm nonreactive to light, L eye 1-2mm and reactive to light , normal sclerae CARDIO: reg rate, S1/2 heard without m/g/r LUNGS: CTA bilaterally, crackles at the L base however, very difficult to appreciating breath sounds as he won't follow instruction to take a deep breath rales or wheezes, good diaphragmatic excursion ABD: soft, non-tender, non-distended, no rebound or guarding EXTREMITY: RP and DP palpable 2+ bilat, no LE swelling or edema, extremities are warm and well-perfused, palpated all extremities and did not detect any grimacing or withdrawal as a sign of pain. NEURO: reflexes are 2/4 in knees, otherwise cannot assess as patient is demented and unable to follow instructions MUSC: moves all extremities equally SKIN: warm and dry Hospital Course CAP CXR showed parenchymal infiltrate left base Received rocephin and zithromax. Abx changed to cefdinir BID Blood cx negative Continue cefdinir for 5 more days stable INFLUENZA A Continue Tamiflu to complete 5 days. will complete course today Left Hip Fracture s/p mechanical fall S/P day 3 post-op Left TFN pain management as per ortho Continue PT/OT Fall precaution stable from orthopedic standpoint Follow up with [facility] between 4 to 6 weeks Will go to [facility] today for rehab Dementia-cont Namenda and Aricept-- progressive over last year per sonMarisabel Javed so resides on the dementia ceballos at [facility]. Stable Dysphagia Speech path consult in am--cont aspiration precautions. Recommended pureed diet. Hypokalemia- Stable Continue monitor BMP resolved DVT px started on heparin subq during the hospital course Will discharge on sub lovenox for DVT px, can be discontinue once pt starts to ambulate CODE STATUS DNR DISPOSITION [facility] DC THEE 10-14 DAYS POST OP CONT AYESHA HOSE X 4 WEEKS FOLLOW UP AT [facility] [place] IN 4-6 WEEKS [phone] Continue PT/OT Fall precaution Total time spent on discharge = 35 minutes This includes examination of the patient, discharge planning, medication reconciliation, and communication with other providers. Discharge Instructions Discharge Instructions Admission Reason for Admission: Fracture Of Left Hip, Closed Discharge Discharge Diagnosis / Problem: SP LEFT TFN Discharge Goals Goal(s): Decrease discomfort, Improve function, Increase independence Activity Recommendations Activity Level: Assistance Required Therapies: Physical Therapy, Occupational Therapy Weightbearing Status: Left weightbearing (as tolerated) . Additional Information Patient informed of condition: Yes Advance Directives: Yes DNR: No Level of Care: Skilled Communicable Disease: Yes Prognosis: Stable Current Hospital Diet Patient's current hospital diet: Regular Diet Discharge Diet Recommended Diet: Regular Diet Procedures Procedures Performed: Left Open Reducation Internal Fixation Trochanteric Nailing Pending Studies Studies pending at discharge: no Physician Orders On Transfer Additional Orders: DC THEE 10-14 DAYS POST OP CONT AYESHA HOSE X 4 WEEKS FOLLOW UP AT [facility] [place] IN 4-6 WEEKS [phone] DVT PROPHYLAXIS PER MEDICAL SERVICE. Medical Emergencies . Who to Call and When: Medical Emergencies: If at any time you feel your situation is an emergency, please call 911 immediately. . Non-Emergent Contact Non-Emergency issues call your: Primary Care Provider . . "Provider Documentation" section prepared by Dolly Doyle. Core Measure Problem Core Measures: None Addendum: Ayleen Cates M.D. on 06/07/16 @ 13:13 Discharge Inst - Addendum Addendum Notes: Please complete Cefdinir course Lovenox 30mg subq for DVT prophylaxis can be discontinue once he starts to ambulate Fall precaution Continue PT/OT Follow up with your primary care provider once discharge from rehab. Addendum Provider: Addendum Notes were documented by provider Ayleen Cates. (Ayleen Cates M.D.) Additional Copies To [facility], Neto Lundberg D.O.
== END 2016-06-07 14:00 | DRG 480 ==
LOC: ENRESERVDT → CANRESERV → ENRESERVTM → C.EDB 11:52 → C.2T 20:10 → C.MSW 06-03 16:45
PROVIDERS: ADMIT Hospitalist; ATTEND Internal Medicine
PROC: 0QS734Z Reposition Left Upper Femur with Internal Fixation Device, Percutaneous Approach (ICD-10-PCS; principal; 2016-06-04 13:15)
DX: S72.142A Displaced intertrochanteric fracture of left femur, initial encounter for closed fracture (principal); J18.9 Pneumonia, unspecified organism; M16.12 Unilateral primary osteoarthritis, left hip; R13.10 Dysphagia, unspecified; J10.1 Influenza due to other identified influenza virus with other respiratory manifestations; Z66 Do not resuscitate; F03.90 Unspecified dementia, unspecified severity, without behavioral disturbance, psychotic disturbance, mood disturbance, and anxiety; E87.6 Hypokalemia; Y92.122 Bedroom in nursing home as the place of occurrence of the external cause; W19.XXXA Unspecified fall, initial encounter

== ENCOUNTER 2017-05-21 07:39 | Emergency (ER) | payer BC, OTHER ==
[~2017-05-21] VITALS: Ht 175.3 cm; Wt 65.9 kg
[~2017-05-21 07:39] MED LIST changes: +HYDR-5688 PO; +[UNRECOGNIZED DRUG - CODE] PO
[2017-05-21 07:48] VITALS: PULSE 75; TEMP 36.3; O2SAT 95; Ht 175.3 cm; Wt 65.9 kg
[2017-05-21] MEDS ORDERED: AMLO2.5T PO (08:12)
[2017-05-21] MEDS ORDERED: DOCU10LI PO (08:12)
[2017-05-21] MEDS ORDERED: XYLOCAINE 1%/SOD BICARB 20 ML VIAL INFIL ONE (08:15)
--- NOTE | 2017-05-21 08:29 | EMERGENCY ROOM VISIT NOTE ---
ED Visit Note First contact with patient: 07:47 I have seen and examined this patient with Edu Castillo and generally agree with the treatment plan as discussed.
--- NOTE | 2017-05-21 08:45 | DIAGNOSTIC IMAGING REPORT ---
HEAD WITHOUT CONTRAST (CT) CLINICAL HISTORY: 86 years-old Male with Fall; L sided facial trauma. Acute left-sided facial trauma status post fall TECHNIQUE: Multiple axial CT images of the head were obtained without contrast. A dose lowering technique was utilized adhering to the principles of ALARA. CT DOSE: 614.27 mGy.cm COMPARISON: CT head 06/02/2016. FINDINGS: No acute intracranial hemorrhage, midline shift, intracranial mass, hydrocephalus, territorial ischemia or abnormal extra-axial collection. Moderate atrophy with ex vacuo ventriculomegaly. Chronic microvascular ischemic changes redemonstrated. Vascular calcifications are again seen at the level of the skull base. The calvarium is intact. The paranasal sinuses, mastoid air cells, and middle ear cavities are clear. IMPRESSION: No acute intracranial abnormality. The above report was generated using voice recognition software. It may contain grammatical, syntax or spelling errors. Electronically signed by: Satnam Morrow M.D. 05/21/2017 8:44 AM Dictated Date/Time: 05/21/2017 8:41 AM
[2017-05-21 09:43] VITALS: BP 143/72
--- NOTE | 2017-05-21 14:24 | EMERGENCY ROOM VISIT NOTE ---
ED Visit Note First contact with patient: 07:47 Chief Complaint: Fall and ear laceration. History of Present Illness: Mr. Calderon is an 86-year-old white male who ambulates into the ED accompanied by his son. Son reports patient is a resident at the [facility]. He reports his father has a history of falls predominantly at night and dementia. Son continues and reports that he received a call from the nursing facility this morning who reported his father was found in bed with an ear laceration and felt it was related to a fall; no fall was observed. Son also reports that father has been his normal self since he picked up the patient to bring him to the ED for further evaluation and care. Currently patient has no complaints. He does not remember any fall. He denies any associated symptoms including headache, dizziness, lightheadedness, abnormal neurological symptoms, neck pain, back pain, hearing changes, difficulty speaking, difficulty walking, chest pain, palpitations, shortness of breath, abdominal pain, nausea, vomiting, extremity weakness/numbness/tingling. Review of Systems: As noted above in history of present illness. At least body systems were reviewed and found to be negative as noted above. Past Medical History: As previously noted and hip fracture. Current Medications: Medications Dose Route/Sig Max Daily Dose Days Date Category Dose Instructions Silace (Docusate Sodium) 150 Mg/15 Ml Liq 10 Ml PO BID 05/21/17 Reported Norvasc (Amlodipine Besylate) 2.5 Mg Tab 2.5 Mg PO DAILY 05/21/17 Reported Limon 5MG/325MG (Acetaminophen/Hydrocodone Bitart) Tab 1 Tab PO Q12 PRN 7 06/07/16 Rx hold for lethargy and drowsiness Miralax (Polyethylene Glycol 3350) 1 Pow 17 Gm PO BID 03/09/16 Reported Tylenol (Acetaminophen) 325 Mg Tab 325 Mg PO Q6 PRN 08/30/15 Reported MAX APAP =3GM/24HRS. Tylenol (Acetaminophen) 325 Mg Tab 325 Mg PO Q4H PRN 08/30/15 Reported TEMP > 100. MAX APAP = 3GM/24HRS. Venlafaxine Hcl Er (Venlafaxine Hcl) 150 Mg Tab 150 Mg PO DAILY 08/30/15 Reported Namenda (Memantine) 10 Mg Tab 10 Mg PO BID 08/30/15 Reported Aricept (Donepezil Hydrochloride) 10 Mg Tab 10 Mg PO HS 08/30/15 Reported Allergies to Medications: Son denies. Social History: Patient is not currently employed; he denies tobacco and alcohol use. Physical Examination: Vital Signs: Date Time Temp Pulse Resp B/P (MAP) Pulse Ox O2 Delivery O2 Flow Rate FiO2 05/21/17 09:43 143/72 05/21/17 07:48 36.3 75 20 137/83 95 Room Air GENERAL: 86-year-old male in no acute distress, chronically ill-appearing, afebrile and hemodynamically stable. NEUROLOGICAL: Awake, alert and oriented to person only. Answering questions with only a or no answers. Cranial nerves II through XII grossly intact. Pronator drift test negative. On gait testing is stable. Good hand eye coordination. Poor short term memory. SKIN: Warm, dry and pink. Left Ear: Patient has a contusion over the cymba. 0.4 cm X shaped full-thickness laceration over the upper and lateral aspect of the earlobe. 2.1 cm full-thickness laceration over the middle aspect of the helix. Scalp: Patient has a 3 mm superficial laceration over the mastoid process. HEENT: Skull: Atraumatic and normocephalic. Soft tissue injury as noted above. No bony deformities, bony crepitus, swelling or ecchymosis. Mild tenderness over the mastoid process in the area of the soft tissue injury. No raccoon's eyes or kumar signs. No drainage from the ears orf the nostril; no hemotympanum; should be noted that there was blood on the external ear due to laceration but none within the canal. Face: Soft tissue injury as noted above. PERRLA. EOMI. Sclera white and conjunctiva pink. No malocclusion. Airway patent. Trachea midline. No jugular venous distention. BACK: No tenderness over the bony spine cervical and thoracic. Full range of motion of the cervical spine. THORAX: Lungs sounds are clear to auscultation and equal bilaterally with symmetrical chest wall. No crepitus, tenderness, subcutaneous air or deformities noted. ABDOMEN: Flat, soft and nontender. Positive bowel sounds in all quadrants. No guarding, rigidity or organomegaly. EXTREMITIES: Moves all extremities well on command and with purpose. All distal neurovascular statuses are intact and equal bilaterally. ED Course: Patient is assessed as noted above. Patient's medication list was reviewed. Head CT: Was reviewed by myself and read by the radiologist showing no acute intracranial hemorrhage, midline shift, intercranial masses, hydronephrosis, ischemia or axial fluid collection. Moderate atrophy. Chronic microvascular ischemic changes. Vascular calcifications are again seen. No skull fractures and paranasal sinuses, mastoid air cells and middle ear cavities are clear. Wound Repair: Complexity: Basic: Verbal consent was obtained. The skin was prepped with betadine and a sterile field set. Wound edges of the wounds were anesthetized with a total of 2.8 ml buffered 1% lidocaine. The wounds were explored for foreign bodies and none found. Copious irrigation was performed using sterile saline. With direct pressure the bleeding subsided. Debridement was not performed. The wound edges were approximated using 6-0 Ethilon with a total of 9 simple interrupted sutures. Hemostasis and excellent approximation was achieved. Antibacterial ointment and a sterile dressing applied. No complications and the patient tolerated the procedure well. Clinical Impression: Right external ear lacerations. Fall. Disposition: Patient discharged to home in stable condition accompanied by his [id number]; prior to departure he was reassessed and subjectively reported that he was pain and symptom-free. Plan: Comfort measures, wound care, signs of infection and signs of head injury were discussed patient's daughter in law and related halfway personnel. [id number] was encouraged to have the patient be brought to emergency department for any signs of head injury. [id number] was encouraged to have the patient follow-up with family physician for any signs of infection or any new/concerning symptoms.
== END 2017-05-21 10:21 | disposition home or self-care (01) ==
LOC: C.EDB 07:40 → C.EDA 10:21
DX: S01.311A Laceration without foreign body of right ear, initial encounter (principal); F03.90 Unspecified dementia, unspecified severity, without behavioral disturbance, psychotic disturbance, mood disturbance, and anxiety; W19.XXXA Unspecified fall, initial encounter

== ENCOUNTER 2017-06-01 13:26 | Emergency (ER) | payer BC ==
[~2017-06-01] VITALS: Ht 170.2 cm; Wt 66.1 kg
[~2017-06-01 13:26] MED LIST changes: +AMLO2.5T PO; +DOCU10LI PO; -[UNRECOGNIZED DRUG - CODE] PO
[2017-06-01 13:37] VITALS: BP 122/78; PULSE 71; TEMP 36.4; O2SAT 99; Ht 170.2 cm; Wt 66.1 kg
--- NOTE | 2017-06-01 21:19 | EMERGENCY ROOM VISIT NOTE ---
ED Visit Note First contact with patient: 13:46 CHIEF COMPLAINT: Suture removal. HISTORY OF PRESENT ILLNESS: Mr. Calderon is a 86-year-old white male who ambulates into the ED accompanied by his son. Son reports his father has a history of dementia and he was seen in the emergency department 11 days ago after sustaining a left ear laceration and is requesting suture removal. Son reports they missed the date because he forgot when he is father was to return. Patient and father denies that there has been pain, swelling, redness, or drainage from the wound and son feels like the laceration is healing well. PHYSICAL EXAM: Vital Signs: Date Time Temp Pulse Resp B/P (MAP) Pulse Ox O2 Delivery O2 Flow Rate FiO2 06/01/17 13:37 36.4 71 20 122/78 99 Room Air Left Ear: Clean dry and intact wound on the without signs of infection ( erythema, swelling, tenderness, purulent drainage) ED COURSE: 9 sutures were removed without any difficulty and there was no separation of the wound edges. DISPOSITION: Patient discharged home in stable condition accompanied by his son. CLINICAL IMPRESSION: Suture removal; Well healing laceration. PLAN: Son was encouraged to continue current instructions on wound care and watch for signs of infection. Son was encouraged to have his father follow-up with his primary care provider return to the ED for any signs of infection or any new/concerning symptoms.
== END 2017-06-01 14:05 | disposition home or self-care (01) ==
LOC: C.EDB 13:27 → C.EDD 14:05
DX: S01.312D Laceration without foreign body of left ear, subsequent encounter (principal); X58.XXXD Exposure to other specified factors, subsequent encounter

== ENCOUNTER → 2017-06-10 | Outpatient (CLI) | payer BC ==
[2017-06-10 09:47] LABS: HEMOGLOBIN 12.7 g/dL (14.0-18.0); MEAN CELL VOLUME 95.8 fL (80-100); MEAN CORPUSCULAR HEMOGLOBIN 31.2 pg (25-34); MEAN CORPUSCULAR HGB CONC 32.6 g/dl (32-36); MEAN PLATELET VOLUME 10.2 fL (7.4-10.4); PLATELET COUNT 292 K/uL (130-400); RED CELL DISTRIBUTION WIDTH CV 13.7 % (11.5-14.5); RED CELL DISTRIBUTION WIDTH SD 47.5 fL (36.4-46.3); WHITE BLOOD COUNT 6.37 K/uL (4.8-10.8)
== END | disposition home or self-care (01) ==
LOC: C.LABOUTLO 08:59
PROVIDERS: ATTEND Internal Medicine
DX: R53.83 Other fatigue (principal)

== ENCOUNTER → 2017-08-19 | Outpatient (CLI) | payer BC ==
[2017-08-19 08:25] LABS: BASO % 0.5 %; BASO ABS # 0.04 K/uL (0-0.2); EOS % 1.1 %; HEMATOCRIT 33.8 % (42-52); HEMOGLOBIN 11.4 g/dL (14.0-18.0); IG# 0.04 K/uL (0.00-0.02); LYMPH % 23.1 %; LYMPH ABS # 2.04 K/uL (1.2-3.4); MEAN CELL VOLUME 94.4 fL (80-100); MEAN CORPUSCULAR HEMOGLOBIN 31.8 pg (25-34); MEAN CORPUSCULAR HGB CONC 33.7 g/dl (32-36); MEAN PLATELET VOLUME 9.1 fL (7.4-10.4); MONO % 12.9 %; MONO ABS # 1.14 K/uL (0.11-0.59); NEUT % 61.9 %; NEUT ABS # 5.48 K/uL (1.4-6.5); PLATELET COUNT 423 K/uL (130-400); RED CELL DISTRIBUTION WIDTH CV 13.4 % (11.5-14.5); RED CELL DISTRIBUTION WIDTH SD 46.5 fL (36.4-46.3); WHITE BLOOD COUNT 8.84 K/uL (4.8-10.8)
[2017-08-19 08:40] LABS: BLOOD UREA NITROGEN 17 mg/dl (7-18); CALCIUM 8.8 mg/dl (8.5-10.1); CARBON DIOXIDE 25 mmol/L (21-32); CREATININE 0.94 mg/dl (0.60-1.40); GLUCOSE 108 mg/dl (70-99); POTASSIUM 3.7 mmol/L (3.5-5.1); SODIUM 140 mmol/L (136-145)
== END | disposition home or self-care (01) ==
LOC: C.LABOUTLO 08:10
PROVIDERS: ATTEND Internal Medicine
DX: I25.10 Atherosclerotic heart disease of native coronary artery without angina pectoris (principal)

== ENCOUNTER → 2017-09-18 | Outpatient (CLI) | payer BC ==
[2017-09-18 08:26] LABS: BASO % 1.9 %; BASO ABS # 0.14 K/uL (0-0.2); EOS % 3.2 %; EOS ABS # 0.24 K/uL (0-0.5); HEMATOCRIT 37.2 % (42-52); HEMOGLOBIN 12.2 g/dL (14.0-18.0); IG# 0.03 K/uL (0.00-0.02); LYMPH % 30.5 %; LYMPH ABS # 2.28 K/uL (1.2-3.4); MEAN CELL VOLUME 96.1 fL (80-100); MEAN CORPUSCULAR HEMOGLOBIN 31.5 pg (25-34); MEAN CORPUSCULAR HGB CONC 32.8 g/dl (32-36); MEAN PLATELET VOLUME 9.5 fL (7.4-10.4); MONO % 10.6 %; MONO ABS # 0.79 K/uL (0.11-0.59); NEUT % 53.4 %; PLATELET COUNT 280 K/uL (130-400); RED CELL DISTRIBUTION WIDTH SD 49.4 fL (36.4-46.3); WHITE BLOOD COUNT 7.48 K/uL (4.8-10.8)
[2017-09-18 08:57] LABS: ALBUMIN 3.3 gm/dl (3.4-5.0); ALKALINE PHOSPHATASE 73 U/L (45-117); ALT/SGPT 15 U/L (12-78); AST/SGOT 16 U/L (15-37); BLOOD UREA NITROGEN 22 mg/dl (7-18); CALCIUM 8.6 mg/dl (8.5-10.1); CARBON DIOXIDE 30 mmol/L (21-32); CREATININE 1.18 mg/dl (0.60-1.40); GLUCOSE 88 mg/dl (70-99); POTASSIUM 3.4 mmol/L (3.5-5.1); SODIUM 141 mmol/L (136-145); TOTAL PROTEIN 7.2 gm/dl (6.4-8.2)
== END | disposition home or self-care (01) ==
LOC: C.LABOUTLO 07:49
PROVIDERS: ATTEND Internal Medicine
DX: D64.9 Anemia, unspecified (principal)

== ENCOUNTER 2020-04-16 14:49 | Inpatient (IN) ==
--- NOTE | 2020-04-16 15:14 | Emergency Department Note ---
History of Present Illness General Chief complaint: Illness Stated complaint: HYPOXIA Time Seen by Provider: 04/16/20 14:56 History of Present Illness Maximum Pain Intensity: 0 This is an 89-year-old male that presents to the emergency department via ambulance from [facility] where he resides. Per EMS patient has history of dementia, is nonverbal at baseline. The patient was having vital signs performed this afternoon was found to have a pulse ox of 80%. EMS was summoned. Nursing staff and EMS note that the patient has not had any hypoxia during ambulance ride here or here in the department. Patient is nonverbal and does respond when spoken to but not in coherent or full sentences. The patient reportedly has had a negative Covid test recently. I did attempt to reach out to [facility] at 3:08 PM. At that time the nurse who normally cares the patient was currently busy with the patient and notes that they will call me back. I did receive a phone call back shortly thereafter, they note that he has had a decline in the past 24 to 48 hours and notes that normally he is able to ambulate with a walker. For the past 24 to 48 hours he has had decreased p.o. intake, is not eating, not drinking and is barely opening his eyes. Although normally he does not speak much, when asked if he was short of breath earlier he said yes. The patient does not/is not able to provide any history. He does not appear to be in pain. I will note the patient is currently being seen during the COVID-19 pandemic. Home Medications Medication Instructions Recorded Confirmed Type amlodipine 5 mg PO QAM 02/06/18 04/16/20 History donepezil 10 mg PO HS 02/06/18 04/16/20 History memantine 10 mg PO QAM 02/06/18 04/16/20 History potassium chloride 10 meq PO BID 02/06/18 04/16/20 History venlafaxine 75 mg PO QAM 02/06/18 04/16/20 History pantoprazole 40 mg PO QAM 09/10/18 04/16/20 History levothyroxine 50 mcg PO QAM 10/01/18 04/16/20 History acetaminophen [Tylenol] 325 mg PO Q4H PRN MDD 3 GRAMS 06/06/19 04/16/20 History APAP/24 HOURS acetaminophen 325 mg PO Q6H PRN MDD 2 GRAMS 04/16/20 04/16/20 History APAP/24 HOURS nutritional supplements [Ensure 1 ea PO TID 04/16/20 04/16/20 History Pudding] Allergies Allergy/AdvReac Type Severity Reaction Status Date / Time Cipro Allergy Mild 0 Verified 10/16/17 23:30 ciprofloxacin Allergy Unknown WAS ON Verified 02/26/20 18:48 CHART Past Med/Surg History Medical History (Updated 04/17/20 @ 01:17 by John Araya PA-C) Dementia Diaphragmatic hernia Hip fracture HTN (hypertension) Surgical History H/O inguinal hernia repair History of knee replacement History of repair of hip fracture S/P cataract surgery Family History Other ALS (amyotrophic lateral sclerosis) Heart disease Social History Smoking Status: Unknown if ever smoked Hx Alcohol Use: No Hx Substance Use: No Preferred Language: Czech Communication Ability: Impaired Communication Ability Comment: pt listens but is non verbal Visual Impairment: No Limitations Education Research Analyst Required: No Beliefs That Will Affect Care: None marital status: Current Living Situation: Personal Care Facility [facility] current occupational status: retired Other Information That Helps Us Care for You: No Feels Safe at Home: Yes Assistive Devices: None Review of Systems Unobtainable due to cognitive status Physical Exam Vital Signs Vital Signs - 24 hr 04/16/20 14:55 04/16/20 14:57 04/16/20 14:58 Temperature 36.5 C Temperature Source Oral Pulse Rate 63 63 63 Pulse Rate from SpO2 Sensor 63 66 Respiratory Rate 22 16 21 Respiratory Effort / Characteristics Non-Labored Spontaneous Respiratory Depth Normal Respiratory Pattern Regular Blood Pressure 157/80 H 157/80 H Blood Pressure Mean 95 105 Pulse Oximetry 94 100 100 Oxygen Delivery Method Room Air Sepsis Recent Fever Within 48 Hours No Sepsis New/Unexplained Change in Mental Status No Sepsis Action Taken by Nursing No Action Required 04/16/20 15:00 04/16/20 15:01 04/16/20 15:30 Temperature Temperature Source Pulse Rate 62 62 61 Pulse Rate from SpO2 Sensor 62 62 61 Respiratory Rate 21 21 19 Respiratory Effort / Characteristics Respiratory Depth Respiratory Pattern Blood Pressure 156/75 H 170/110 H Blood Pressure Mean 98 139 Pulse Oximetry 99 100 99 Oxygen Delivery Method Sepsis Recent Fever Within 48 Hours Sepsis New/Unexplained Change in Mental Status Sepsis Action Taken by Nursing 04/16/20 15:31 04/16/20 16:00 04/16/20 16:01 Temperature Temperature Source Pulse Rate 62 65 64 Pulse Rate from SpO2 Sensor 61 64 64 Respiratory Rate 18 24 18 Respiratory Effort / Characteristics Respiratory Depth Respiratory Pattern Blood Pressure 149/110 H Blood Pressure Mean 132 Pulse Oximetry 98 99 97 Oxygen Delivery Method Sepsis Recent Fever Within 48 Hours Sepsis New/Unexplained Change in Mental Status Sepsis Action Taken by Nursing 04/16/20 16:11 04/16/20 16:30 04/16/20 17:00 Temperature Temperature Source Pulse Rate 77 76 70 Pulse Rate from SpO2 Sensor 70 68 75 Respiratory Rate 24 21 15 Respiratory Effort / Characteristics Respiratory Depth Respiratory Pattern Blood Pressure 130/106 H Blood Pressure Mean 118 Pulse Oximetry 94 97 Oxygen Delivery Method Sepsis Recent Fever Within 48 Hours Sepsis New/Unexplained Change in Mental Status Sepsis Action Taken by Nursing 04/16/20 17:01 Temperature Temperature Source Pulse Rate 68 Pulse Rate from SpO2 Sensor 73 Respiratory Rate 27 H Respiratory Effort / Characteristics Respiratory Depth Respiratory Pattern Blood Pressure 120/104 H Blood Pressure Mean 109 Pulse Oximetry Oxygen Delivery Method Sepsis Recent Fever Within 48 Hours Sepsis New/Unexplained Change in Mental Status Sepsis Action Taken by Nursing VITAL SIGNS - Vital signs and nursing notes were reviewed. Vital signs are stable. He is not hypoxic. He is saturating 100% on room air. GENERAL -89-year-old male appearing his stated age who is in no acute distress. Nonverbal at this time. Keeps his eyes closed. SKIN - Without rashes. No meningeal or petechial rash. HEAD - NC/AT. EYES - PERRL with EOMI bilaterally. Sclera anicteric. EARS - No deformities of external structures noted on gross examination bilaterally. NOSE - Midline and without cyanosis. No epistaxis or purulent drainage noted. MOUTH/OROPHARYNX - Without perioral cyanosis. NECK - Neck with FROM. No nuchal rigidity. LUNGS - Chest wall symmetric without accessory muscle use, intercostals retractions, or central cyanosis. Normal vesicular breath sounds CTA B/L. No wheezes, rales, or rhonchi appreciated. CARDIAC - RRR with S1/S2. No murmur, rubs, or gallops appreciated. ABDOMEN -abdomen is soft and nontender. Nonrigid. EXTREMITIES - No clubbing or peripheral cyanosis. NEUROLOGIC -limited secondary to cognitive status. No facial droop. PSYCH -patient is resting comfortably at this time. Course Administered Medications Acetaminophen (Acetaminophen 325 Mg Tab) 325 mg PO Q6H PRN PRN Reason: Pain Stop: 05/16/20 21:07 Last Admin: 04/16/20 22:42 Dose: 325 mg Documented by: [id number] Acetaminophen (Acetaminophen 325 Mg Tab) 325 mg PO Q4H PRN PRN Reason: Fever Stop: 05/16/20 21:07 Last Admin: 04/16/20 22:42 Dose: 325 mg Documented by: [id number] Dexamethasone (Dexamethasone 4 Mg Tab) 6 mg PO DAILY LILLIAM Stop: 05/16/20 22:59 Last Admin: 04/16/20 22:25 Dose: 6 mg Documented by: [id number] Donepezil HCl (Donepezil Hcl 10 Mg Tab) 10 mg PO HS LILLIAM Stop: 05/16/20 21:07 Last Admin: 04/16/20 22:27 Dose: 10 mg Documented by: [id number] Heparin Sodium (Porcine) (Heparin Sod 5,000 Unit/0.5 Ml Vial) 5,000 units SQ Q8 LILLIAM Stop: 05/16/20 21:59 Last Admin: 04/16/20 22:26 Dose: 5,000 units Documented by: [id number] Sodium Chloride (Nss 1000ml) 1,000 mls @ 80 mls/hr IV .[id number] [facility] Stop: 05/16/20 21:29 Last Admin: 04/16/20 22:25 Dose: 80 mls/hr Documented by: [id number] Potassium Chloride (Potassium Chloride 10 Meq Tabcr) 10 meq PO BID LILLIAM Stop: 05/16/20 22:59 Last Admin: 04/16/20 22:26 Dose: 10 meq Documented by: [id number] Vitamin D (Cholecalciferol 1,000 Units 25 Mcg Tab) 5,000 units PO QAM LILLIAM Stop: 05/16/20 21:07 Last Admin: 04/16/20 22:27 Dose: 5,000 units Documented by: [id number] Zinc Sulfate (Zinc Sulfate 220 Mg Capsule) 220 mg PO QAM LILLIAM Stop: 01/12/21 21:07 Last Admin: 04/16/20 22:26 Dose: 220 mg Documented by: [id number] Discontinued Medications Sodium Chloride (Nss 1000ml) 1,000 mls @ 125 mls/hr IV .Q8H LILLIAM Stop: 05/16/20 15:44 Last Infusion: 04/16/20 23:47 Dose: 0 mls/hr Documented by: [id number] Admin: 04/16/20 16:40 Dose: 125 mls/hr Documented by: [id number] Medical Decision Making Laboratory Data Result diagrams: 04/16/20 16:50 04/16/20 16:50 Lab Results 04/16/20 04/16/20 04/16/20 Range/Units 16:24 16:24 16:50 WBC 6.87 (4.8-10.8) K/uL RBC 4.29 L (4.7-6.1) M/uL Hgb 13.6 L (14.0-18.0) g/dL Hct 40.8 L (42-52) % MCV 95.1 (80-100) fL MCH 31.7 (25-34) pg MCHC 33.3 (32-36) g/dL RDW Std Deviation 48.9 H (36.4-46.3) fL RDW Coeff of Edmundo 14.1 (11.5-14.5) % Plt Count 199 (130-400) K/uL MPV 9.7 (7.4-10.4) fL Immature Gran % (Auto) 0.3 % Neut % (Auto) 72.5 % Lymph % (Auto) 15.9 % Hanson % (Auto) 10.6 % Eos % (Auto) 0.1 % Baso % (Auto) 0.6 % Neut # (Auto) 4.98 (1.4-6.5) K/uL Lymph # (Auto) 1.09 L (1.2-3.4) K/uL Hanson # (Auto) 0.73 H (0.11-0.59) K/uL Eos # (Auto) 0.01 (0-0.5) K/uL Baso # (Auto) 0.04 (0-0.2) K/uL Immature Gran # (Auto) 0.02 (0.00-0.02) K/uL Sodium (136-145) mmol/L Potassium (3.5-5.1) mmol/L Chloride (98-107) mmol/L Carbon Dioxide (21-32) mmol/L Anion Gap (3-11) BUN (7-18) mg/dl Creatinine (0.6-1.4) mg/dl Est Cr Clr Drug Dosing Est GFR ( Amer) Est GFR (Non-Af Amer) BUN/Creatinine Ratio (10-20) Glucose (70-99) mg/dl Lactate (0.4-2.0) mmol/L Calcium (8.5-10.1) mg/dl Magnesium (1.8-2.4) mg/dl Total Bilirubin (0.2-1) mg/dl AST (15-37) U/L ALT (12-78) U/L Alkaline Phosphatase (45-117) U/L Lactate Dehydrogenase (87-241) U/L Troponin I (0-0.045) ng/ml C-Reactive Protein (0-0.29) mg/dl Total Protein (6.4-8.2) gm/dl Albumin (3.4-5.0) gm/dl Globulin (2.5-4.0) gm/dl Albumin/Globulin Ratio (0.9-2) COVID-19 Eval [facility] SARS-CoV-2, RNA, NAAT POSITIVE A* (NEGATIVE) 04/16/20 04/16/20 04/16/20 Range/Units 16:50 16:50 16:50 WBC (4.8-10.8) K/uL RBC (4.7-6.1) M/uL Hgb (14.0-18.0) g/dL Hct (42-52) % MCV (80-100) fL MCH (25-34) pg MCHC (32-36) g/dL RDW Std Deviation (36.4-46.3) fL RDW Coeff of Edmundo (11.5-14.5) % Plt Count (130-400) K/uL MPV (7.4-10.4) fL Immature Gran % (Auto) % Neut % (Auto) % Lymph % (Auto) % Hanson % (Auto) % Eos % (Auto) % Baso % (Auto) % Neut # (Auto) (1.4-6.5) K/uL Lymph # (Auto) (1.2-3.4) K/uL Hanson # (Auto) (0.11-0.59) K/uL Eos # (Auto) (0-0.5) K/uL Baso # (Auto) (0-0.2) K/uL Immature Gran # (Auto) (0.00-0.02) K/uL Sodium 143 (136-145) mmol/L Potassium 3.5 (3.5-5.1) mmol/L Chloride 109 H (98-107) mmol/L Carbon Dioxide 28 (21-32) mmol/L Anion Gap 6.0 (3-11) BUN 24 H (7-18) mg/dl Creatinine 1.25 (0.6-1.4) mg/dl Est Cr Clr Drug Dosing Not Reportable Est GFR ( Amer) 59.2 Est GFR (Non-Af Amer) 51.1 BUN/Creatinine Ratio 19.3 (10-20) Glucose 90 (70-99) mg/dl Lactate (0.4-2.0) mmol/L Calcium 8.6 (8.5-10.1) mg/dl Magnesium 2.0 (1.8-2.4) mg/dl Total Bilirubin 0.3 (0.2-1) mg/dl AST 104 H (15-37) U/L ALT 42 (12-78) U/L Alkaline Phosphatase 85 (45-117) U/L Lactate Dehydrogenase 265 H (87-241) U/L Troponin I < 0.015 (0-0.045) ng/ml C-Reactive Protein 5.01 H (0-0.29) mg/dl Total Protein 7.6 (6.4-8.2) gm/dl Albumin 3.2 L (3.4-5.0) gm/dl Globulin 4.4 H (2.5-4.0) gm/dl Albumin/Globulin Ratio 0.7 L (0.9-2) COVID-19 Eval Order SARS-CoV-2, RNA, NAAT (NEGATIVE) 04/16/20 Range/Units 17:00 WBC (4.8-10.8) K/uL RBC (4.7-6.1) M/uL Hgb (14.0-18.0) g/dL Hct (42-52) % MCV (80-100) fL MCH (25-34) pg MCHC (32-36) g/dL RDW Std Deviation (36.4-46.3) fL RDW Coeff of Edmundo (11.5-14.5) % Plt Count (130-400) K/uL MPV (7.4-10.4) fL Immature Gran % (Auto) % Neut % (Auto) % Lymph % (Auto) % Hanson % (Auto) % Eos % (Auto) % Baso % (Auto) % Neut # (Auto) (1.4-6.5) K/uL Lymph # (Auto) (1.2-3.4) K/uL Hanson # (Auto) (0.11-0.59) K/uL Eos # (Auto) (0-0.5) K/uL Baso # (Auto) (0-0.2) K/uL Immature Gran # (Auto) (0.00-0.02) K/uL Sodium (136-145) mmol/L Potassium (3.5-5.1) mmol/L Chloride (98-107) mmol/L Carbon Dioxide (21-32) mmol/L Anion Gap (3-11) BUN (7-18) mg/dl Creatinine (0.6-1.4) mg/dl Est Cr Clr Drug Dosing Est GFR ( Amer) Est GFR (Non-Af Amer) BUN/Creatinine Ratio (10-20) Glucose (70-99) mg/dl Lactate 1.6 (0.4-2.0) mmol/L Calcium (8.5-10.1) mg/dl Magnesium (1.8-2.4) mg/dl Total Bilirubin (0.2-1) mg/dl AST (15-37) U/L ALT (12-78) U/L Alkaline Phosphatase (45-117) U/L Lactate Dehydrogenase (87-241) U/L Troponin I (0-0.045) ng/ml C-Reactive Protein (0-0.29) mg/dl Total Protein (6.4-8.2) gm/dl Albumin (3.4-5.0) gm/dl Globulin (2.5-4.0) gm/dl Albumin/Globulin Ratio (0.9-2) COVID-19 Eval Order SARS-CoV-2, RNA, NAAT (NEGATIVE) Imaging Data Radiologist's Impression: HEAD CT NONCONTRAST CT DOSE: 2252.82 mGy.cm HISTORY: Altered mental status, fatigue, pending covid TECHNIQUE: Multiaxial CT images of the head were performed without the use of intravenous contrast. Automated exposure control was utilized for this study. A dose lowering technique was utilized adhering to the principles of ALARA. Comparison: Head CT 03/20/2020. Findings: The paranasal sinuses and mastoid air cells are clear. The calvarium and skull base are intact. There is no mass, hematoma, midline shift, acute infarct. White matter hypodensity is nonspecific but suggestive of microvascular ischemic change. The ventricles and sulci demonstrate moderate age-related invo lutional changes. Impression: No significant change compared to the prior study. No acute intracranial abnormality. ACT 112: Negative or not required by law. Electronically signed by: Crisotbal Kuo M.D. 04/16/2020 5:30 PM XR chest 1V portable HISTORY: reportedly hypoxic COMPARISON: Chest 02/16/2019. FINDINGS: There are low lung volumes. No pneumothorax. No pleural effusions. The heart is normal in size. Large hiatus hernia, unchanged. The left lung is clear. There is a hazy airspace opacity within the right lower lung zone. This is new compared the prior study. IMPRESSION: There is a new hazy airspace opacity within the right lower lung zone. This favors a pneumonia and could be due to a viral process or aspiration. ACT 112: Negative or not required by law. Electronically signed by: Cristobal Kuo M.D. 04/16/2020 5:02 PM MDM Narrative Patient was seen and evaluated as above in room C10. Review was performed of nursing notes and vital signs. I did review pertinent previous visits and patient history. After obtaining a thorough history and physical examination the above work up was performed. Patient presents to us today via ambulance over concern for hypoxia where he currently resides at [facility]. Reportedly, this hypoxia was found during routine vital signs. Patient in no distress at this time. He presents to us today from his residence via ambulance. I did speak with [facility] employees and they are concerned about the patient's decline over the past few days. They have seen COVID-19 cases in their facility. They are concerned that he may have such. IV access established. Labs were drawn. No leukocytosis. Mild anemia. No emergent metabolic disturbance. CRP, lactate dehydrogenase are elevated. Troponin negative. Urinalysis does not suggest infection. Covid testing negative. I did speak with the patient's listed contact to inform them upon todays findings. At this point I recommend inpatient management noting his reported decline over the past few days in the setting of COVID-19. Case discussed with the hospitalist. Please refer to further documentation regarding his stay. Case was discussed with the attending physician. EKG reveals sinus rhythm with first-degree AV block at a rate of [address] elevation. QTc 442. An order was placed for continuous cardiac monitoring. The monitor shows a rate of 63 bpm with sinus rhythm. I attest that I have personally reviewed the patient medication list. GCS: 15 In the evaluation and treatment of this patient the following differential diagnoses were entertained: DC, COVID, PE, TIA, CVA, Sepsis, infection, pneum onia, amoung others. Impression & Plan COVID-19 Discharge Plan Visit Data Chief Complaint: Illness Stated Complaint: HYPOXIA ED Provider: Edu Butts ED Midlevel Provider: John Araya Discharge Problem: COVID-19 Patient Disposition: Admitted As Inpatient Condition: Fair
[2020-04-16] MEDS ORDERED: SODIUM CHLORIDE 0.9% 1000ML 1,000 ML IV SCH ×2 (15:45→21:30)
[2020-04-16 17:02] LABS: Basophils # (auto) 0.04 K/uL (0-0.2); Basophils % (auto) 0.6 %; Eosinophils # (auto) 0.01 K/uL (0-0.5); Eosinophils % (auto) 0.1 %; Hematocrit (blood only) 40.8 % (42-52); Hemoglobin 13.6 g/dL (14.0-18.0); Immature Granulocytes # (auto) 0.02 K/uL (0.00-0.02); Immature Granulocytes % (auto) 0.3 %; Lymphocytes # (auto) 1.09 K/uL (1.2-3.4); Lymphocytes % (auto) 15.9 %; Mean Corpuscular Hemoglobin 31.7 pg (25-34); Mean Corpuscular Hgb Conc 33.3 g/dL (32-36); Mean Corpuscular Volume 95.1 fL (80-100); Mean Platelet Volume 9.7 fL (7.4-10.4); Monocytes # (auto) 0.73 K/uL (0.11-0.59); Monocytes % (auto) 10.6 %; Neutrophils # (auto) 4.98 K/uL (1.4-6.5); Neutrophils % (auto) 72.5 %; Platelet Count 199 K/uL (130-400); RDW Coefficient of Variation 14.1 % (11.5-14.5); RDW Standard Deviation 48.9 fL (36.4-46.3); Red Blood Count 4.29 M/uL (4.7-6.1); White Blood Count 6.87 K/uL (4.8-10.8)
--- NOTE | 2020-04-16 17:03 | XRay Report ---
XR chest 1V portable HISTORY: reportedly hypoxic COMPARISON: Chest 02/16/2019. FINDINGS: There are low lung volumes. No pneumothorax. No pleural effusions. The heart is normal in s ize. Large hiatus hernia, unchanged. The left lung is clear. There is a hazy airspace opacity within the right lower lung zone. This is new compared the prior study. IMPRESSION: There is a new hazy airspace opacity within the right lower lung zone. This favors a pneumonia and co uld be due to a viral process or aspiration. ACT 112: Negative or not required by law. Electronically signed by: Cristobal Kuo M.D. 04/16/2020 5:02 PM
[2020-04-16 17:18] LABS: Alanine Aminotransferase 42 U/L (12-78); Albumin Level 3.2 gm/dl (3.4-5.0); Aspartate Aminotransferase 104 U/L (15-37); BUN Creatinine Ratio 19.3 (10-20); Blood Urea Nitrogen 24 mg/dl (7-18); Calcium 8.6 mg/dl (8.5-10.1); Carbon Dioxide 28 mmol/L (21-32); Chloride 109 mmol/L (98-107); Est GFR (African American) 59.2; Est GFR (Non-African American) 51.1; Glucose 90 mg/dl (70-99); Potassium 3.5 mmol/L (3.5-5.1); Sodium 143 mmol/L (136-145)
[2020-04-16 17:23] LABS: Albumin Globulin Ratio 0.7 (0.9-2); Alkaline Phosphatase 85 U/L (45-117); Bilirubin,Total 0.3 mg/dl (0.2-1); Globulin 4.4 gm/dl (2.5-4.0); Total Protein 7.6 gm/dl (6.4-8.2); Troponin I < 0.015 ng/ml (0-0.045)
--- NOTE | 2020-04-16 17:31 | CT Scan Report ---
HEAD CT NONCONTRAST CT DOSE: 2252.82 mGy.cm HISTORY: Altered mental status, fatigue, pending covid TECHNIQUE: Multiaxial CT images of the head were performed without the use of intravenous contrast. A utomated exposure control was utilized for this study. A dose lowering technique was utilized adheri ng to the principles of ALARA. Comparison: Head CT 03/20/2020. Findings: The paranasal sinuses and mastoid air cells are clear. The calvarium and skull base are int act. There is no mass, hematoma, midline shift, acute infarct. White matter hypodensity is nonspecifi c but suggestive of microvascular ischemic change. The ventricles and sulci demonstrate moderate age- related involutional changes. Impression: No significant change compared to the prior study. No acute intracranial abnormality. ACT 112: Negative or not required by law. Electronically signed by: Cristobal Kuo M.D. 04/16/2020 5:30 PM
--- NOTE | 2020-04-16 17:34 | History & Physical Report ---
Date of Service April 16, 2020 Assessment & Plan (1) COVID-19: (2) HTN (hypertension): (3) Dementia: (4) DVT prophylaxis: We will place the patient on oxygen, continue appropriate outpatient medications vitamin D3, dexamethasone, zinc, DuoNeb as needed, patient is a DNR/DNI per son Tyrel. Of note we were notified by [facility] that he has had a significant decline in the last 24-48 hrs. A decrease in his mental status as well as no longer using his walker and he has been quite fatigued. Although he generally does not speak much this is also declined. He has had a decrease in p.o. intake. They asked him if he felt short of breath earlier and he noted yes. Reportedly O2 sat at [facility] was 80%. History of Present Illness Taken from ER notes, patient offers no reliable history, I called [facility] x 2 no answer, Son Tyrel says DNR. 89 yo male c PMH of MW tear, HTN, Dementia, Hiatal Hernia, DJD, and gastric outlet obstruction who is a resident of [facility]. He is nonverbal at baseline. The patient was having routine vital signs performed this afternoon was found to have a pulse ox of 80%. EMS was summoned. Nursing staff and EMS noted that the patient has not had any hypoxia during ambulance ride here or here in the department. Patient is nonverbal and does respond when spoken to but not in coherent or full sentences. The patient reportedly has had a negative Covid test recently. Here he is covid +. Primary Care Provider: [facility] Allergies Allergy/AdvReac Type Severity Reaction Status Date / Time Cipro Allergy Mild 0 Verified 10/16/17 23:30 ciprofloxacin Allergy Unknown WAS ON Verified 02/26/20 18:48 CHART Home Medications Medication Instructions Recorded Confirmed Type amlodipine 5 mg PO QAM 02/06/18 04/16/20 History donepezil 10 mg PO HS 02/06/18 04/16/20 History memantine 10 mg PO QAM 02/06/18 04/16/20 History potassium chloride 10 meq PO BID 02/06/18 04/16/20 History venlafaxine 75 mg PO QAM 02/06/18 04/16/20 History pantoprazole 40 mg PO QAM 09/10/18 04/16/20 History levothyroxine 50 mcg PO QAM 10/01/18 04/16/20 History acetaminophen [Tylenol] 325 mg PO Q4H PRN MDD 3 GRAMS 06/06/19 04/16/20 History APAP/24 HOURS acetaminophen 325 mg PO Q6H PRN MDD 2 GRAMS 04/16/20 04/16/20 History APAP/24 HOURS nutritional supplements [Ensure 1 ea PO TID 04/16/20 04/16/20 History Pudding] Past Med/Surg History Medical History (Updated 04/16/20 @ 17:28 by Wolf Mckeon DO) Dementia Diaphragmatic hernia Hip fracture HTN (hypertension) Surgical History H/O inguinal hernia repair History of knee replacement History of repair of hip fracture S/P cataract surgery Family History Other ALS (amyotrophic lateral sclerosis) Heart disease Social History Smoking Status: Unknown if ever smoked Hx Alcohol Use: No Hx Substance Use: No Preferred Language: Pashto Communication Ability: Impaired Visual Impairment: No Limitations Roadside Mechanic Required: No Beliefs That Will Affect Care: None marital status: Current Living Situation: Longterm Current Living Situation Comment: [place] current occupational status: retired Feels Safe at Home: Yes Assistive Devices: Walker Physical Exam Physical Exam: ROS-Offers no history Physical Exam Gen-Awake, NAD, unreliable, Afebrile Head-NCAT, EOMI, PERRLA, Anicteric Sclera, No Posterior Pharyngeal Erythema Neck-Supple, No JVD, No Thyromegaly, No Masses, No LAD, No Bruits Lungs-Clear to Auscultation Bilaterally, No Rales, No Rhonchi, No Wheezing, No Crepitus Chest-No S4, +S1, +S2, No S3, No Murmurs, No Rubs, No Gallops, No Ectopy Abdomen-Soft, Bowel Sounds Present, Non Tender, Non Distended, No Hepatomegaly, No Splenomegaly, No Palpable Masses, No Rebound, No Rigidity, No Guarding Musculoskeletal-Full Range of Motion Bilaterally, No CVAT Extremities-No Cyanosis, No Clubbing, No Edema Nuero-Cranial Nerves II-XII grossly intact, Motor WNL, DTRs WNL, Strength WNL, Non Focal Psych-Demented Results & Data Results & Data ([facility]) Vital Signs (Past 12 Hours) Vital Signs Temp Pulse Resp BP Pulse Ox 04/16/20 14:57 36.5 C 63 16 157/80 H 100 Allergies Cipro Allergy (Mild, Verified 10/16/17 23:30) 0 ciprofloxacin Allergy (Unknown, Verified 02/26/20 18:48) WAS ON CHART Height/Weight/Isolation Weight 70.6 kg Isolation Type Contact Precautions,Airborne Precautions CBC 04/16/20 04/16/20 04/16/20 16:24 16:24 16:50 WBC 6.87 RBC 4.29 L Hgb 13.6 L Hct 40.8 L MCV 95.1 MCH 31.7 MCHC 33.3 RDW Std Deviation 48.9 H RDW Coeff of Edmundo 14.1 Plt Count 199 MPV 9.7 Immature Gran % (Auto) 0.3 Neut % (Auto) 72.5 Lymph % (Auto) 15.9 [place] % (Auto) 10.6 Eos % (Auto) 0.1 Baso % (Auto) 0.6 Neut # (Auto) 4.98 Lymph # (Auto) 1.09 L [place] # (Auto) 0.73 H Eos # (Auto) 0.01 Baso # (Auto) 0.04 Immature Gran # (Auto) 0.02 COVID-19 Eval Order Covid19 [facility] SARS-CoV-2, RNA, NAAT POSITIVE A* Chemistry 04/16/20 16:50 Sodium 143 Potassium 3.5 Chloride 109 H Carbon Dioxide 28 Anion Gap 6.0 BUN 24 H Creatinine 1.25 Glucose 90 Microbiology 04/16/20 17:00 Blood Aerobic Blood Culture - Pending 04/16/20 17:00 Blood Anaerobic Blood Culture - Pending 04/16/20 16:50 Blood Aerobic Blood Culture - Pending 04/16/20 16:50 Blood Anaerobic Blood Culture - Pending Code Status & VTE Plan VTE Prophylaxis Plan VTE Prophylaxis will be ordered: Yes (1) HTN (hypertension) Hypertension type: unspecified Qualified Code(s): I10 - Essential (primary) hypertension
[2020-04-16] MEDS ORDERED: ACETAMINOPHEN 325 MG TAB PO PRN ×2 (21:08)
[2020-04-16] MEDS ORDERED: NUTRITIONAL SUPPLEMENTS PO SCH (21:08)
[2020-04-16] MEDS ORDERED: ALBUT/IPRATROP 3MG/0.5MG NEB 3 ML VIAL NEB PRN (21:08)
[2020-04-16] MEDS: dexAMETHasone 4 MG TAB PO SCH (22:25)
[2020-04-16] MEDS: ZINC SULFATE 220 MG CAPSULE PO SCH (22:26)
[2020-04-16] MEDS: HEPARIN SOD 5,000 UNIT/0.5 ML VIAL SQ SCH (22:26)
[2020-04-16] MEDS: POTASSIUM CHLORIDE 10 MEQ TABCR PO SCH (22:26)
[2020-04-16] MEDS: CHOLECALCIFEROL 1,000 UNITS 25 MCG TAB PO SCH (22:27)
[2020-04-16] MEDS: DONEPEZIL HCL 10 MG TAB PO SCH (22:27)
[2020-04-16 23:38] LABS: Appearance Urine Clear (Clear); Bilirubin Urine Negative (Negative); Blood Urine Trace (Negative); Color Urine Yellow; Epithelial Cell Urine Auto >30 /lpf (0-5); Glucose Urine UA Negative (Negative); Ketones Urine Trace (Negative); Leukocyte Esterase Urine Negative (Negative); Nitrite Urine Negative (Negative); Protein Urine 2+ (Negative); RBC Urine Automated 0-4 /hpf (0-4); Specific Gravity Urine 1.023 (1.000-1.030); Urobilinogen Urine Negative (Negative)
[2020-04-17 00:28] LABS: Mucus Urine Present (None Prsent)
[2020-04-17 00:31] LABS: Bacteria Urine Automated 1+ (Negative)
[2020-04-17] MEDS: LEVOTHYROXINE SODIUM 50 MCG TABLET PO SCH (05:11)
[2020-04-17] MEDS: HEPARIN SOD 5,000 UNIT/0.5 ML VIAL SQ SCH ×3 (05:12→21:25)
[2020-04-17 06:09] LABS: Basophils # (auto) 0.01 K/uL (0-0.2); Basophils % (auto) 0.2 %; Hematocrit (blood only) 39.6 % (42-52); Hemoglobin 13.3 g/dL (14.0-18.0); Lymphocytes # (auto) 0.64 K/uL (1.2-3.4); Lymphocytes % (auto) 13.2 %; Mean Corpuscular Hemoglobin 31.6 pg (25-34); Mean Corpuscular Hgb Conc 33.6 g/dL (32-36); Mean Corpuscular Volume 94.1 fL (80-100); Mean Platelet Volume 9.9 fL (7.4-10.4); Monocytes # (auto) 0.17 K/uL (0.11-0.59); Monocytes % (auto) 3.5 %; Neutrophils # (auto) 4.02 K/uL (1.4-6.5); Neutrophils % (auto) 83.1 %; Platelet Count 192 K/uL (130-400); Red Blood Count 4.21 M/uL (4.7-6.1); White Blood Count 4.84 K/uL (4.8-10.8)
[2020-04-17] MEDS ORDERED: ACETAMINOPHEN 325 MG TAB PO PRN (08:23)
[2020-04-17] MEDS ORDERED: D5W AND 1/2NSS 1,000 ML IV SCH (08:30)
[2020-04-17] MEDS: VENLAFAXINE HCL XR 75 MG CAPXR PO SCH (08:58)
[2020-04-17] MEDS: POTASSIUM CHLORIDE 10 MEQ TABCR PO SCH ×2 (08:58→21:25)
[2020-04-17] MEDS: ZINC SULFATE 220 MG CAPSULE PO SCH (08:58)
[2020-04-17] MEDS: MEMANTINE HCL 10 MG TAB PO SCH (08:58)
[2020-04-17] MEDS: amLODIPine BESYLATE 5 MG TAB PO SCH (08:58)
[2020-04-17] MEDS: PANTOprazole 40 MG TAB PO SCH (08:58)
[2020-04-17] MEDS: dexAMETHasone 4 MG TAB PO SCH (08:58)
[2020-04-17] MEDS: CHOLECALCIFEROL 1,000 UNITS 25 MCG TAB PO SCH (08:58)
[2020-04-17 09:15] LABS: BUN Creatinine Ratio 20.5 (10-20); Calcium 8.7 mg/dl (8.5-10.1); Creatinine Clr Calc Pharmacy 45.9 ml/min; Est GFR (African American) 68.3; Magnesium 2.1 mg/dl (1.8-2.4); Potassium 3.6 mmol/L (3.5-5.1)
[2020-04-17 09:17] LABS: Albumin Globulin Ratio 0.7 (0.9-2); Bilirubin,Total 0.3 mg/dl (0.2-1); Globulin 4.1 gm/dl (2.5-4.0); Phosphorus 3.3 mg/dl (2.5-4.9); Total Protein 7.1 gm/dl (6.4-8.2)
[2020-04-17] MEDS ORDERED: PIPERACILL/TAZOBAC CONSULT ACTIVE PRN (13:38)
--- NOTE | 2020-04-17 13:44 | Hospitalist Progress Note ---
Date of Service April 17, 2020 Assessment & Plan (1) COVID-19: Aspiration Pneumonia with COVID-19 exposure -as per 04/16/2020 admission note " notified by [facility] that he has had a significant decline in the last 24-48 hrs. A decrease in his mental status as well as no longer using his walker and he has been quite fatigued. Although he generally does not speak much this is also declined. He has had a decrease in p.o. intake. They asked him if he felt short of breath earlier and he noted yes. Reportedly O2 sat at [facility] was 80%." -admission CXR "There are low lung volumes. No pneumothorax. No pleural effusions. The heart is normal in size. Large hiatus hernia, unchanged. The left lung is clear. There is a hazy airspace opacity within the right lower lung zone. This is new compared the prior study." -04/17/2020 Patient seen and examined at bedside. He is on room air and the speech therapist allowed him nectar thick puree diet. Patient does not respond verbally to questions and therefor full review of systems could not be done but he did not appear to be in acute distress and he appeared to understand what I was saying when I asked him to move his legs buts his leg movements on the bed was minimal effort. I called [facility] and they confirmed that at baseline patient speaks very little and only "yes" or "no" to questions at most. They also affirmed that by history patient had hypoxic episode at [facility] but review of notes and vitals signs to date that patient has been saturating well on room air. Patient did have an elevated febrile temperature at 39 celsius on 04/16/2020 at 10 PM in the hospital. While the admission CXR of "There is a new hazy airspace opacity within the right lower lung zone" could be a viral pneumonia due to COVID-19, the sudden nature of hypoxia at [facility] could be an aspiration pneumonia for a patient with COVID -19 exposure. Will stop the oral dexamethasone as started on admission and repeat blood culture, send procalcitonin level, and start Zosyn empirically (2) Dementia: -history of his normal baseline as above -continue home dose donepezil, memantine -PT/OT evaluations (3) HTN (hypertension): -continue home dose amlodipine 5 mg daily (4) DVT prophylaxis: -heparin subcutaneous Code Status: as per admission notes that patient is a DNR/DNI per son Tyrel. Admission and Anticipated Discharge Date Admission Date: April 16, 2020 Subjective Patient seen and examined at bedside. He is on room air and the speech therapist allowed him nectar thick puree diet. Patient does not respond verbally to questions and therefor full review of systems could not be done but he did not appear to be in acute distress and he appeared to understand what I was saying when I asked him to move his legs buts his leg movements on the bed was minimal effort. I called [facility] and they confirmed that at baseline patient speaks very little and only "yes" or "no" to questions at most. They also affirmed that by history patient had hypoxic episode at [facility] but review of notes and burt ls signs to date that patient has been saturating well on room air. Patient did have an elevated febrile temperature at 39 celsius on 04/16/2020 at 10 PM in the hospital. While the admission CXR of "There is a new hazy airspace opacity within the right lower lung zone" could be a viral pneumonia due to COVID-19, the sudden nature of hypoxia at [facility] could be an aspiration pneumonia for a patient with COVID -19 exposure. Will stop the oral dexamethasone as started on admission and repeat blood culture, send procalcitonin level, and start Zosyn empirically Review of Systems Review of Systems: Unobtainable due to cognitive status Physical Exam Constitutional: + thin Eyes: EOM intact bilaterally ENMT: external ear and nose normal, oropharynx normal Neck: normal visual inspection Respiratory: normal respiratory effort Cardiovascular: Rate/Rhythm: regular rate Gastrointestinal (Abdomen): normal bowel sounds, soft, nontender, no hepatosplenomegaly Musculoskeletal: Head/Neck/Chest: normocephalic and head atraumatic Neurologic: awake Psychiatric: Orientation: alert Results & Data Results & Data ([facility]) Vital Signs (Past 12 Hours) Vital Signs Temp Pulse Resp BP Pulse Ox Pulse Ox 04/17/20 07:49 36.6 C 58 L 18 173/68 H 97 04/17/20 07:30 94 04/17/20 02:20 95 (1) HTN (hypertension) Hypertension type: unspecified Qualified Code(s): I10 - Essential (primary) hypertension
[2020-04-17] MEDS ORDERED: PIPERACILLIN/TAZOBACTAM 4.5 GM in DEXTROSE 5% 100 ML IV ONE (14:00)
[2020-04-17 14:46] LABS: BUN Creatinine Ratio 21.2 (10-20); Calcium 8.8 mg/dl (8.5-10.1); Creatinine Clr Calc Pharmacy 45.9 ml/min; Est GFR (African American) 68.3; Potassium 3.5 mmol/L (3.5-5.1)
[2020-04-17] MEDS: PIPERACILLIN/TAZOBACTAM 3.375 GM in DEXTROSE 5% 100 ML IV SCH (17:09)
--- NOTE | 2020-04-17 19:28 | Electrocardiogram Report ---
Test Reason : Blood Pressure : / mmHG Vent. Rate : 068 BPM Atrial Rate : 068 BPM P-R Int : 254 ms QRS Dur : 068 ms QT Int : 416 ms P-R-T Axes : 030 -26 -24 degrees QTc Int : 442 ms Poor data quality, interpretation may be adversely affected Sinus rhythm with 1st degree A-V block with Fusion complexes Nonspecific ST abnormality Abnormal ECG When compared with ECG of 16-FEB-2019 16:00, Fusion complexes are now Present Confirmed by Faizan Alcantar ([id number]) on 04/17/2020 7:28:10 PM Referred By: Rendennis Confirmed By:Faizan Alcantar
[2020-04-17] MEDS: DONEPEZIL HCL 10 MG TAB PO SCH (21:25)
[2020-04-18] MEDS: PIPERACILLIN/TAZOBACTAM 3.375 GM in DEXTROSE 5% 100 ML IV SCH ×3 (01:38→17:54)
[2020-04-18] MEDS: LEVOTHYROXINE SODIUM 50 MCG TABLET PO SCH (05:27)
[2020-04-18] MEDS: HEPARIN SOD 5,000 UNIT/0.5 ML VIAL SQ SCH ×3 (05:27→21:40)
[2020-04-18] MEDS: CHOLECALCIFEROL 1,000 UNITS 25 MCG TAB PO SCH (07:34)
[2020-04-18] MEDS: amLODIPine BESYLATE 5 MG TAB PO SCH (07:34)
[2020-04-18] MEDS: POTASSIUM CHLORIDE 10 MEQ TABCR PO SCH ×2 (07:34→20:16)
[2020-04-18] MEDS: ZINC SULFATE 220 MG CAPSULE PO SCH (07:34)
[2020-04-18] MEDS: PANTOprazole 40 MG TAB PO SCH (07:34)
[2020-04-18] MEDS: MEMANTINE HCL 10 MG TAB PO SCH (07:34)
[2020-04-18] MEDS: VENLAFAXINE HCL XR 75 MG CAPXR PO SCH (07:34)
[2020-04-18 07:38] LABS: Basophils # (auto) 0.01 K/uL (0-0.2); Basophils % (auto) 0.1 %; Hematocrit (blood only) 39.8 % (42-52); Hemoglobin 13.4 g/dL (14.0-18.0); Immature Granulocytes # (auto) 0.02 K/uL (0.00-0.02); Immature Granulocytes % (auto) 0.2 %; Lymphocytes # (auto) 1.13 K/uL (1.2-3.4); Lymphocytes % (auto) 13.9 %; Mean Corpuscular Hemoglobin 31.8 pg (25-34); Mean Corpuscular Hgb Conc 33.7 g/dL (32-36); Mean Corpuscular Volume 94.3 fL (80-100); Mean Platelet Volume 10.8 fL (7.4-10.4); Monocytes # (auto) 0.65 K/uL (0.11-0.59); Neutrophils # (auto) 6.33 K/uL (1.4-6.5); Neutrophils % (auto) 77.8 %; Platelet Count 224 K/uL (130-400); RDW Coefficient of Variation 14.1 % (11.5-14.5); RDW Standard Deviation 48.5 fL (36.4-46.3); Red Blood Count 4.22 M/uL (4.7-6.1); White Blood Count 8.14 K/uL (4.8-10.8)
[2020-04-18 08:07] LABS: Albumin Level 3.1 gm/dl (3.4-5.0); BUN Creatinine Ratio 22.6 (10-20); Creatinine Clr Calc Pharmacy 38.6 ml/min; Est GFR (African American) 55.4; Est GFR (Non-African American) 47.8; Magnesium 2.1 mg/dl (1.8-2.4); Potassium 3.7 mmol/L (3.5-5.1)
[2020-04-18 08:17] LABS: Albumin Globulin Ratio 0.7 (0.9-2); Bilirubin,Total 0.3 mg/dl (0.2-1); Globulin 4.5 gm/dl (2.5-4.0); Phosphorus 3.1 mg/dl (2.5-4.9); Thyroid Stimulating Hormone 1.31 uIu/ml (0.300-4.500); Total Protein 7.6 gm/dl (6.4-8.2)
--- NOTE | 2020-04-18 12:51 | Hospitalist Progress Note ---
Date of Service April 18, 2020 Assessment & Plan (1) COVID-19: Aspiration Pneumonia with COVID-19 exposure -as per 04/16/2020 admission note " notified by [facility] that he has had a significant decline in the last 24-48 hrs. A decrease in his mental status as well as no longer using his walker and he has been quite fatigued. Although he generally does not speak much this is also declined. He has had a decrease in p.o. intake. They asked him if he felt short of breath earlier and he noted yes. Reportedly O2 sat at [facility] was 80%." -admission CXR "There are low lung volumes. No pneumothorax. No pleural effusions. The heart is normal in size. Large hiatus hernia, unchanged. The left lung is clear. There is a hazy airspace opacity within the right lower lung zone. This is new compared the prior study." -04/17/2020 Patient seen and examined at bedside. He is on room air and the speech therapist allowed him nectar thick puree diet. Patient does not respond verbally to questions and therefor full review of systems could not be done but he did not appear to be in acute distress and he appeared to understand what I was saying when I asked him to move his legs buts his leg movements on the bed was minimal effort. I called [facility] and they confirmed that at baseline patient speaks very little and only "yes" or "no" to questions at most. They also affirmed that by history patient had hypoxic episode at [facility] but review of notes and vitals signs to date that patient has been saturating well on room air. Patient did have an elevated febrile temperature at 39 celsius on 04/16/2020 at 10 PM in the hospital. While the admission CXR of "There is a new hazy airspace opacity within the right lower lung zone" could be a viral pneumonia due to COVID-19, the sudden nature of hypoxia at [facility] could be an aspiration pneumonia for a patient with COVID -19 exposure. stopped the oral dexamethasone as started on admission anded repeat blood culture, sent procalcitonin level (0.16), and start Zosyn empirically -04/18/2020: Patient remains on room air and no fevers noted since 04/16/2020. not on steroids because of being on room air. Patient with minimal speech as per his dementia and a full review of systems cannot be performed. Patient does not appear to be in distress. He is continuing IV Zosyn. Patient able to tolerate the diet A repeat CXR will be performed on 04/19/2020. 04/16/20 blood cultures no growth to date, 04/16/2020 urine cultures are un remarkable 04/17/2020 blood culture pending because of positive COVID-19 test on 04/16/2020, case management reports that patient will need to be in hospital for 10 days until 04/26/2020 until return to [facility] (2) Dementia: -history of his normal baseline as above -continue home dose donepezil, memantine -PT/OT evaluations while in the hospital (3) HTN (hypertension): -his home dose amlodipine is increased from 5 mg daily to 10 mg daily starting on 04/18/2020 (4) DVT prophylaxis: -heparin subcutaneous Code Status: as per admission notes that patient is a DNR/DNI per son Tyrel. Admission and Anticipated Discharge Date Admission Date: April 16, 2020 Subjective Patient remains on room air and no fevers noted since 04/16/2020. Patient with minimal speech as per his dementia and a full review of systems cannot be performed. Patient does not appear to be in distress. He is continuing IV Zosyn. Patient able to tolerate the diet A repeat CXR will be performed on 04/19/2020. 04/16/20 blood cultures no growth to date, 04/16/2020 urine cultures are unremarkable 04/17/2020 blood culture pending Review of Systems Review of Systems: All systems reviewed & are unremarkable except as noted in Subjective Physical Exam Constitutional: + thin Eyes: EOM intact bilaterally ENMT: external ear and nose normal, oropharynx normal Neck: normal visual inspection Respiratory: normal respiratory effort Cardiovascular: Rate/Rhythm: regular rate Gastrointestinal (Abdomen): normal bowel sounds, soft, nontender, no hepatosplenomegaly Musculoskeletal: Head/Neck/Chest: normocephalic and head atraumatic Neurologic: awake Psychiatric: Orientation: alert Results & Data Results & Data ([place]) Vital Signs (Past 12 Hours) Vital Signs Temp Pulse Resp BP Pulse Ox 04/18/20 07:24 36.4 C L 56 L 16 195/72 H 95 (1) HTN (hypertension) Hypertension type: unspecified Qualified Code(s): I10 - Essential (primary) hypertension
[2020-04-18] MEDS ORDERED: amLODIPine BESYLATE 5 MG TAB PO ONE (13:00)
--- NOTE | 2020-04-18 15:51 | Communication Note ---
Date of Service: April 18, 2020 update to progress note that patient now febrile on [facility] ceballos. patient remains on IV Zosyn. there is prn acetaminophen for fever
--- NOTE | 2020-04-18 17:14 | XRay Report ---
XR chest 1V portable CLINICAL HISTORY: follow lung infiltrates COMPARISON STUDY: Chest radiograph April 16, 2020. FINDINGS: A large hiatal hernia is again noted. Mild cardiomegaly is unchanged. Right infrahilar cons olidation is increased. There may be mild left basilar opacity. This is increased. There is no eviden ce for pulmonary edema. No pneumothorax is present. There are possible trace bilateral pleural effusi ons. IMPRESSION: Increase in right infrahilar consolidation and possible left basilar opacity. The findin gs represent an infectious process. ACT 112: Negative or not required by law. Electronically signed by: Gunnar Gloria M.D. 04/18/2020 5:13 PM
[2020-04-18] MEDS: DONEPEZIL HCL 10 MG TAB PO SCH (20:15)
[2020-04-19] MEDS: PIPERACILLIN/TAZOBACTAM 3.375 GM in DEXTROSE 5% 100 ML IV SCH ×3 (01:30→19:27)
[2020-04-19] MEDS: LEVOTHYROXINE SODIUM 50 MCG TABLET PO SCH (06:08)
[2020-04-19] MEDS: HEPARIN SOD 5,000 UNIT/0.5 ML VIAL SQ SCH ×3 (06:08→21:23)
[2020-04-19] MEDS: CHOLECALCIFEROL 1,000 UNITS 25 MCG TAB PO SCH (09:04)
[2020-04-19] MEDS: ZINC SULFATE 220 MG CAPSULE PO SCH (09:05)
[2020-04-19] MEDS: POTASSIUM CHLORIDE 10 MEQ TABCR PO SCH ×2 (09:05→21:22)
[2020-04-19] MEDS: VENLAFAXINE HCL XR 75 MG CAPXR PO SCH (09:05)
[2020-04-19] MEDS: PANTOprazole 40 MG TAB PO SCH (09:05)
[2020-04-19] MEDS: MEMANTINE HCL 10 MG TAB PO SCH (09:05)
[2020-04-19] MEDS: amLODIPine BESYLATE 5 MG TAB PO SCH (09:05)
[2020-04-19 10:24] LABS: Albumin Level 2.9 gm/dl (3.4-5.0); BUN Creatinine Ratio 21.7 (10-20); C Reactive Protein 6.52 mg/dl (0-0.29); Calcium 8.5 mg/dl (8.5-10.1); Creatinine Clr Calc Pharmacy 40.1 ml/min; Est GFR (African American) 58.1; Est GFR (Non-African American) 50.1; Potassium 3.2 mmol/L (3.5-5.1)
[2020-04-19 10:28] LABS: Albumin Globulin Ratio 0.6 (0.9-2); Bilirubin,Total 0.4 mg/dl (0.2-1); Globulin 4.5 gm/dl (2.5-4.0); Total Protein 7.4 gm/dl (6.4-8.2)
--- NOTE | 2020-04-19 14:42 | Hospitalist Progress Note ---
Date of Service April 19, 2020 Assessment & Plan (1) COVID-19: Decadron was given two days and then was stopped. Pt currently doesn't have an oxygen requirement and is elderly with dementia putting him at very high risk for steroid psychosis and other side effects from steroids. Cont isolation. (2) Dementia: -history of his normal baseline as above -continue home dose donepezil, memantine -PT/OT evaluations while in the hospital (3) Aspiration pneumonia: Covered on Zosyn for possible aspiration pneumonia. Trend procalcitonin. Currently improved clinically and not requiring an oxygen requirement. Pureed diet with nursing assistance with feedings. Strict aspiration precautions. (4) HTN (hypertension): improved, controlled, his home dose amlodipine is increased from 5 mg daily to 10 mg daily starting on 04/18/2020 (5) Hypothyroidism: cont Synthriod per home regimen. (6) Depression: cont Effexor per home regimen. (7) DVT prophylaxis: -heparin subcutaneous DNR/DNI Dispo-cont monitoring in the hospital DO Polo Suarez Hospitalist Admission and Anticipated Discharge Date Admission Date: April 16, 2020 Subjective 89 yo dementia patient admitted with COVID-19 infection cannot obtain ROS 2/2 dementia. Patient is not verbally responding to my questions and is not following my instructions on exam. tolerating pureed diet-assistance with meals Review of Systems Review of Systems: Unobtainable due to mental health condition (dementia) Physical Exam Physical Exam: CONSTITUTIONAL: thin, frail, elderly, NAD EYES: normal conjunctivae, no scleral icterus ENT: external ear and nose normal, MMM RESPIRATORY: clear to auscultation bilaterally (limited exam as patient is unable to move around much), no crackles, rales or wheezes, normal respiratory effort CARDIOVASCULAR: regular rate and rhythm, S1 and 2 heard without murmurs, gallops or rubs, no JVD, no peripheral edema GASTROINTESTINAL: soft, nontender, nondistended. MUSCULOSKELETAL: generalized weakness, cannot cooperate with exam so limited. SKIN: warm and dry NEUROLOGIC: CN 2-12 grossly intact, patient is nonverbal and is not following c ommands Results & Data Results & Data ([facility]) Vital Signs (Past 12 Hours) Vital Signs Temp Pulse Resp BP Pulse Ox 04/19/20 07:22 36.8 C 63 16 139/70 91 Laboratory Results BMP 12/16/20 09:18 Sodium 143 Potassium 3.2 L Chloride 111 H Carbon Dioxide 27 BUN 28 H Creatinine 1.27 Glucose 102 H Calcium 8.5 Liver Function 04/19/20 Range/Units 09:18 Total Bilirubin 0.4 (0.2-1) mg/dl AST 65 H (15-37) U/L ALT 34 (12-78) U/L Alkaline Phosphatase 68 (45-117) U/L Albumin 2.9 L (3.4-5.0) gm/dl Medications Administered Current Inpatient Medications Acetaminophen (Acetaminophen 325 Mg Tab) 325 mg PO Q6H PRN PRN Reason: Pain or Fever Stop: 05/16/20 21:07 Last Admin: 04/18/20 15:43 Dose: 325 mg Documented by: Albuterol (Albut/Ipratrop 3mg/0.5mg Neb 3 Ml Vial) 3 ml NEB NOW PRN PRN Reason: Shortness Of Breath Or Wheezing Stop: 05/16/20 21:07 Amlodipine Besylate ([facility]ip[facility] Besylate 5 Mg Tab) [facility] [place]: 05/19/20 08:59 Last Admin: 04/19/20 09:05 Dose: 10 mg Documented by: Donepezil HCl (Donepezil Hcl 10 Mg Tab) 10 mg PO [facility] Stop: 05/16/20 21:07 Last Admin: 04/18/20 20:15 Dose: 10 mg Documented by: Heparin Sodium (Porcine) (Heparin Sod 5,000 Unit/0.5 Ml Vial) 5,000 units SQ Q8 [facility] Stop: 05/16/20 21:59 Last Admin: 04/19/20 13:41 Dose: 5,000 units Documented by: Piperacillin Sod/Tazobactam (Sod 3.375 gm/ Dextrose) 115 mls @ 28.75 mls/hr IV Q8H [facility]; Protocol Stop: 04/24/20 17:59 Last Infusion: 04/19/20 13:16 Dose: Infused Documented by: Levothyroxine Sodium (Levothyroxine Sodium 50 Mcg Tablet) [facility] Stop: 05/17/20 06:29 Last Admin: 04/19/20 06:08 Dose: 50 mcg Documented by: Memantine (Memantine Hcl 10 Mg Tab) [facility] Stop: 05/17/20 08:59 Last Admin: 04/19/20 09:05 Dose: 10 mg Documented by: Miscellaneous Information (Piperacill/Tazobac Consult Active) 1 ea N/A UD PRN PRN Reason: Consult Stop: 05/17/20 13:37 Pantoprazole Sodium (Pantoprazole 40 Mg Tab) 40 mg PO [facility] Stop: 05/17/20 08:59 Last Admin: 04/19/20 09:05 Dose: 40 mg Documented by: Potassium Chloride (Potassium Chloride 10 Meq Tabcr) 10 meq PO BID [facility] Stop: 05/16/20 22:59 Last Admin: 04/19/20 09:05 Dose: 10 meq Documented by: Venlafaxine HCl (Venlafaxine Hcl Xr 75 Mg Capxr) 75 mg PO [facility] Stop: 05/17/20 08:59 Last Admin: 04/19/20 09:05 Dose: 75 mg Documented by: Vitamin D (Cholecalciferol 1,000 Units 25 Mcg Tab) 5,000 units PO [facility] Stop: 05/16/20 21:07 Last Admin: 04/19/20 09:04 Dose: 5,000 units Documented by: Zinc Sulfate (Zinc Sulfate 220 Mg Capsule) 220 mg PO [facility] Stop: 05/16/20 21:07 Last Admin: 04/19/20 09:05 Dose: 220 mg Documented by: (1) HTN (hypertension) Hypertension type: unspecified Qualified Code(s): I10 - Essential (primary) hypertension
[2020-04-19] MEDS: DONEPEZIL HCL 10 MG TAB PO SCH (21:20)
[2020-04-20] MEDS: PIPERACILLIN/TAZOBACTAM 3.375 GM in DEXTROSE 5% 100 ML IV SCH ×3 (01:50→18:59)
[2020-04-20] MEDS: LEVOTHYROXINE SODIUM 50 MCG TABLET PO SCH (05:46)
[2020-04-20] MEDS: HEPARIN SOD 5,000 UNIT/0.5 ML VIAL SQ SCH ×3 (05:46→19:59)
[2020-04-20] MEDS: POTASSIUM CHLORIDE 10 MEQ TABCR PO SCH (08:06)
[2020-04-20] MEDS: amLODIPine BESYLATE 5 MG TAB PO SCH (08:06)
[2020-04-20] MEDS: MEMANTINE HCL 10 MG TAB PO SCH (08:07)
[2020-04-20] MEDS: CHOLECALCIFEROL 1,000 UNITS 25 MCG TAB PO SCH (08:08)
[2020-04-20] MEDS: PANTOprazole 40 MG TAB PO SCH (08:09)
[2020-04-20] MEDS: VENLAFAXINE HCL XR 75 MG CAPXR PO SCH (08:09)
[2020-04-20] MEDS: ZINC SULFATE 220 MG CAPSULE PO SCH (08:09)
[2020-04-20 08:16] LABS: Hematocrit (blood only) 40.7 % (42-52); Hemoglobin 13.6 g/dL (14.0-18.0); Mean Corpuscular Hemoglobin 31.2 pg (25-34); Mean Corpuscular Hgb Conc 33.4 g/dL (32-36); Mean Corpuscular Volume 93.3 fL (80-100); Mean Platelet Volume 10.8 fL (7.4-10.4); Platelet Count 202 K/uL (130-400); RDW Coefficient of Variation 14.1 % (11.5-14.5); RDW Standard Deviation 48.1 fL (36.4-46.3); Red Blood Count 4.36 M/uL (4.7-6.1); White Blood Count 6.34 K/uL (4.8-10.8)
[2020-04-20 08:56] LABS: BUN Creatinine Ratio 25.8 (10-20); Calcium 8.5 mg/dl (8.5-10.1); Creatinine Clr Calc Pharmacy 46.8 ml/min; Est GFR (African American) 69.9; Est GFR (Non-African American) 60.3; Magnesium 2.2 mg/dl (1.8-2.4); Potassium 3.2 mmol/L (3.5-5.1)
[2020-04-20] MEDS: DEXAMETHASONE SOD PHOSPHATE 6 MG in SYRINGE 0 ML IV SCH (14:05)
[2020-04-20] MEDS: POTASSIUM CHLORIDE / WTR 10 MEQ/100 ML PLCT IV SCH ×2 (15:27→19:23)
[2020-04-20] MEDS: DONEPEZIL HCL 10 MG TAB PO SCH (19:59)
--- NOTE | 2020-04-20 22:03 | Hospitalist Progress Note ---
Date of Service April 20, 2020 Assessment & Plan (1) COVID-19: Decadron was given two days and then was stopped. Restarted this today with new oxygen requirement and increased CRP levels. Pt son and I discussed remdesivir and CP but these therapies were declined, which is reasonable. (2) Dementia: -history of his normal baseline as above -continue home dose donepezil, memantine -PT/OT evaluations while in the hospital (3) Aspiration pneumonia: Covered on Zosyn for possible aspiration pneumonia. Trend procalcitonin. Currently improved clinically and not requiring an oxygen requirement. Pureed diet with nursing assistance with feedings. Strict aspiration precautions. (4) HTN (hypertension): improved, controlled, his home dose amlodipine is increased from 5 mg daily to 10 mg daily starting on 04/18/2020. Starting ACEI to improve control while on steroids in the hospital. (5) Hypothyroidism: cont Synthriod per home regimen. (6) Depression: cont Effexor per home regimen. (7) DVT prophylaxis: switch to Lovenox to reduce shot burden DNR/DNI Dispo-cont monitoring in the hospital. Spoke with son as above. Care plan outlined and son is in agreement with current plan. Evy Delaney DO [facility] Hospitalist Admission and Anticipated Discharge Date Admission Date: April 16, 2020 Subjective 89 y oM with COVID-19 infection and aspiration pneumonia, end stage dementia -more alert today and eating with nurse -not able to converse or communicate so cannot obtain ROS -called son and spoke by phone, discussed steroid treatment, remdesivir and CP--pt son declined Rem and CP saying too investigational and "aggressive" Review of Systems Review of Systems: Unobtainable due to mental health condition (dementia') Physical Exam Physical Exam: CONSTITUTIONAL: thin, frail, elderly, NAD EYES: normal conjunctivae, no scleral icterus ENT: external ear and nose normal, MMM RESPIRATORY: clear to auscultation bilaterally (limited exam as patient is breath holding), no crackles, rales or wheezes, normal respiratory effort CARDIOVASCULAR: regular rate and rhythm, S1 and 2 heard without murmurs, gallops or rubs, no JVD, no peripheral edema GASTROINTESTINAL: soft, nontender, nondistended. MUSCULOSKELETAL: generalized weakness, cannot cooperate with exam so limited. SKIN: warm and dry NEUROLOGIC: CN 2-12 grossly intact, patient is nonverbal and is not following commands Results & Data Results & Data ([facility]) Vital Signs (Past 12 Hours) Vital Signs Temp Pulse Resp BP Pulse Ox 04/20/20 15:15 36.6 C 65 16 169/81 H 90 Laboratory Results Short CBC 04/20/20 Range/Units 07:24 WBC 6.34 (4.8-10.8) K/uL Hgb 13.6 L (14.0-18.0) g/dL Hct 40.7 L (42-52) % Plt Count 202 (130-400) K/uL BMP 04/20/20 07:24 Sodium 144 Potassium 3.2 L Chloride 111 H Carbon Dioxide 24 BUN 28 H Creatinine 1.09 Glucose 99 Calcium 8.5 Medications Administered Current Inpatient Medications Acetaminophen (Acetaminophen 325 Mg Tab) 325 mg PO Q6H PRN PRN Reason: Pain or Fever Stop: 05/16/20 21:07 Last Admin: 04/18/20 15:43 Dose: 325 mg Documented by: Albuterol (Albut/Ipratrop 3mg/0.5mg Neb 3 Ml Vial) 3 ml NEB NOW PRN PRN Reason: Shortness Of Breath Or Wheezing Stop: 05/16/20 21:07 Amlodipine Besylate (Amlodipine Besylate 5 Mg Tab) 10 mg PO QAM [facility] Stop: 05/19/20 08:59 Last Admin: 04/20/20 08:06 Dose: 10 mg Documented by: Donepezil HCl (Donepezil Hcl 10 Mg Tab) 10 mg PO HS [facility] Stop: 05/16/20 21:07 Last Admin: 04/20/20 19:59 Dose: 10 mg Documented by: Heparin Sodium (Porcine) (Heparin Sod 5,000 Unit/0.5 Ml Vial) 5,000 units SQ Q8 [facility] Stop: 05/16/20 21:59 Last Admin: 04/20/20 19:59 Dose: 5,000 units Documented by: Piperacillin Sod/Tazobactam (Sod 3.375 gm/ Dextrose) 115 mls @ 28.75 mls/hr IV Q8H [facility]; Protocol Stop: 04/24/20 17:59 Last Infusion: 04/20/20 20:22 Dose: 28.8 mls/hr Documented by: Dexamethasone Sodium Phosphate (6 mg/ Syringe) 1.5 mls @ 1 mls/min IV DAILY [facility] Stop: 05/20/20 11:59 Last Admin: 04/20/20 14:05 Dose: 1 mls/min Documented by: Levothyroxine Sodium (Levothyroxine Sodium 50 Mcg Tablet) 50 mcg PO DAILYBB [facility] Stop: 05/17/20 06:29 Last Admin: 04/20/20 05:46 Dose: 50 mcg Documented by: Memantine (Memantine Hcl 10 Mg Tab) 10 mg PO QAM [facility] Stop: 05/17/20 08:59 Last Admin: 04/20/20 08:07 Dose: 10 mg Documented by: Miscellaneous Information (Piperacill/Tazobac Consult Active) 1 ea N/A UD PRN PRN Reason: Consult Stop: 05/17/20 13:37 Pantoprazole Sodium (Pantoprazole 40 Mg Tab) [facility] [place] Stop: 05/17/20 08:59 Last Admin: 04/20/20 08:09 Dose: 40 mg Documented by: Potassium Chloride (Potassium Chloride Crtab 20 Meq Tabcr) 20 meq PO DAILY [facility] Stop: 05/21/20 08:59 Venlafaxine HCl (Venlafaxine Hcl Xr 75 Mg Capxr) 75 mg PO [facility] Stop: 05/17/20 08:59 Last Admin: 04/20/20 08:09 Dose: 75 mg Documented by: Vitamin D (Cholecalciferol 1,000 Units 25 Mcg Tab) 5,000 units PO QAM [facility] Stop: 05/16/20 21:07 Last Admin: 04/20/20 08:08 Dose: 5,000 units Documented by: Zinc Sulfate (Zinc Sulfate 220 Mg Capsule) 220 mg PO QAM [facility] Stop: 05/16/20 21:07 Last Admin: 04/20/20 08:09 Dose: 220 mg Documented by: (1) HTN (hypertension) Hypertension type: unspecified Qualified Code(s): I10 - Essential (primary) hypertension
[2020-04-20] MEDS: lisinopril 20 MG TAB PO SCH (23:51)
[2020-04-21] MEDS: PIPERACILLIN/TAZOBACTAM 3.375 GM in DEXTROSE 5% 100 ML IV SCH ×3 (01:41→18:06)
[2020-04-21] MEDS: LEVOTHYROXINE SODIUM 50 MCG TABLET PO SCH (05:45)
[2020-04-21 06:53] LABS: BUN Creatinine Ratio 24.4 (10-20); C Reactive Protein 8.98 mg/dl (0-0.29); Calcium 8.5 mg/dl (8.5-10.1); Creatinine Clr Calc Pharmacy 41.1 ml/min; Est GFR (African American) 59.8; Est GFR (Non-African American) 51.6; Potassium 3.4 mmol/L (3.5-5.1)
[2020-04-21] MEDS: DEXAMETHASONE SOD PHOSPHATE 6 MG in SYRINGE 0 ML IV SCH (08:08)
[2020-04-21] MEDS: VENLAFAXINE HCL XR 75 MG CAPXR PO SCH (08:10)
[2020-04-21] MEDS: amLODIPine BESYLATE 5 MG TAB PO SCH (08:10)
[2020-04-21] MEDS: MEMANTINE HCL 10 MG TAB PO SCH (08:11)
[2020-04-21] MEDS: PANTOprazole 40 MG TAB PO SCH (08:12)
[2020-04-21] MEDS: ZINC SULFATE 220 MG CAPSULE PO SCH (08:12)
[2020-04-21] MEDS: CHOLECALCIFEROL 1,000 UNITS 25 MCG TAB PO SCH (08:13)
[2020-04-21] MEDS: ENOXAPARIN INJ 40 MG/0.4 ML SYR SQ SCH (08:14)
[2020-04-21] MEDS: POTASSIUM CHLORIDE CRTAB 20 MEQ TABCR PO SCH (08:26)
--- NOTE | 2020-04-21 18:50 | Hospitalist Progress Note ---
Date of Service April 21, 2020 Assessment & Plan (1) COVID-19: Decadron, no remdesivir. Appears improved with treatment. No work of breathing. cont current therapies. (2) Dementia: -history of his normal baseline as above -continue home dose donepezil, memantine -PT/OT evaluations while in the hospital (3) Aspiration pneumonia: Covered on Zosyn for possible aspiration pneumonia. Trend procalcitonin. Currently improved clinically and not requiring an oxygen requirement. Pureed diet with nursing assistance with feedings. Strict aspiration precautions. (4) HTN (hypertension): improved, controlled, his home dose amlodipine is increased from 5 mg daily to 10 mg daily starting on 04/18/2020. Starting ACEI to improve control while on steroids in the hospital. Cont current therapies. (5) Hypothyroidism: cont Synthriod per home regimen. (6) Depression: cont Effexor per home regimen. (7) DVT prophylaxis: Lovenox DNR/DNI Dispo-cont monitoring in the hospital. DO [facility] Hospitalist Admission and Anticipated Discharge Date Admission Date: April 16, 2020 Subjective 89 y oM with COVID-19 infection and aspiration pneumonia, end stage dementia -more alert today and eating with nurse -not able to converse or communicate so cannot obtain ROS -ROS unable to be obtained Review of Systems Review of Systems: Unobtainable due to mental health condition (dementia) Physical Exam Physical Exam: CONSTITUTIONAL: thin, frail, elderly, NAD EYES: normal conjunctivae, no scleral icterus ENT: external ear and nose normal, MMM RESPIRATORY: clear to auscultation bilaterally (limited exam as patient is breath holding), no crackles, rales or wheezes, normal respiratory effort CARDIOVASCULAR: regular rate and rhythm, S1 and 2 heard without murmurs, gallops or rubs, no JVD, no peripheral edema GASTROINTESTINAL: soft, nontender, nondistended. MUSCULOSKELETAL: generalized weakness, cannot cooperate with exam so limited. SKIN: warm and dry NEUROLOGIC: CN 2-12 grossly intact, patient is nonverbal and is not following commands Results & Data Results & Data ([facility]) Vital Signs (Past 12 Hours) Vital Signs Temp Pulse Pulse Resp BP Pulse Ox Pulse Ox 04/21/20 15:40 37.1 C 69 19 151/66 H 97 04/21/20 08:00 90 04/21/20 07:17 36.7 C 56 L 16 151/97 H 93 Laboratory Results [facility] 04/21/20 05:29 Sodium 144 Potassium 3.4 L Chloride 112 H Carbon Dioxide 25 BUN 30 H Creatinine 1.24 Glucose 153 H Calcium 8.5 Medications Administered Current Inpatient Medications Acetaminophen (Acetaminophen 325 Mg Tab) 325 mg PO Q6H PRN PRN Reason: Pain or Fever Stop: 05/16/20 21:07 Last Admin: 04/18/20 15:43 Dose: 325 mg Documented by: Albuterol (Albut/Ipratrop 3mg/0.5mg Neb 3 Ml Vial) 3 ml NEB NOW PRN PRN Reason: Shortness Of Breath Or Wheezing Stop: 05/16/20 21:07 Amlodipine Besylate (Amlodipine Besylate 5 Mg Tab) 10 mg PO [facility] Stop: 05/19/20 08:59 Last Admin: 04/21/20 08:10 Dose: 10 mg Documented by: Donepezil HCl (Donepezil Hcl 10 Mg Tab) 10 mg PO [facility] Stop: 05/16/20 21:07 Last Admin: 04/20/20 19:59 Dose: 10 mg Documented by: Enoxaparin Sodium (Enoxaparin Inj 40 Mg/0.4 Ml Syr) 40 mg SQ [facility] Stop: 05/21/20 08:59 Last Admin: 04/21/20 08:14 Dose: 40 mg Documented by: Piperacillin Sod/Tazobactam (Sod 3.375 gm/ Dextrose) 115 mls @ 28.75 mls/hr IV Q8H COUNTS INCLUDE 234 BEDS AT THE [facility]; Protocol Stop: 04/24/20 17:59 Last Admin: 04/21/20 18:06 Dose: 28.8 mls/hr Documented by: Dexamethasone Sodium Phosphate (6 mg/ Syringe) 1.5 mls @ 1 mls/min IV DAILY COUNTS INCLUDE 234 BEDS AT THE [facility] Stop: 05/20/20 11:59 Last Admin: 04/21/20 08:08 Dose: 1 mls/min Documented by: Levothyroxine Sodium (Levothyroxine Sodium 50 Mcg Tablet) [facility]: 05/17/20 06:29 Last Admin: 04/21/20 05:45 Dose: 50 mcg Documented by: Lisinopril (Lisinopril 20 Mg Tab) 20 mg PO [facility] Stop: 05/20/20 22:04 Last Admin: 04/20/20 23:51 Dose: 20 mg Documented by: Memantine (Memantine Hcl 10 Mg Tab) 10 mg PO QAM COUNTS INCLUDE 234 BEDS AT THE [facility] Stop: 05/17/20 08:59 Last Admin: 04/21/20 08:11 Dose: 10 mg Documented by: Miscellaneous Information (Piperacill/Tazobac Consult Active) 1 ea N/A UD PRN PRN Reason: Consult Stop: 05/17/20 13:37 Pantoprazole Sodium (Pantoprazole 40 Mg Tab) [facility] [place] Stop: 05/17/20 08:59 Last Admin: 04/21/20 08:12 Dose: 40 mg Documented by: Potassium Chloride (Potassium Chloride Crtab 20 Meq Tabcr) 20 meq PO DAILY COUNTS INCLUDE 234 BEDS AT THE [facility] Stop: 05/21/20 08:59 Last Admin: 04/21/20 08:26 Dose: 20 meq Documented by: Venlafaxine HCl (Venlafaxine Hcl Xr 75 Mg Capxr) 75 mg PO [facility] Stop: 05/17/20 08:59 Last Admin: 04/21/20 08:10 Dose: 75 mg Documented by: Vitamin D (Cholecalciferol 1,000 Units 25 Mcg Tab) 5,000 units PO QAM COUNTS INCLUDE 234 BEDS AT THE [facility] Stop: 05/16/20 21:07 Last Admin: 04/21/20 08:13 Dose: 5,000 units Documented by: Zinc Sulfate (Zinc Sulfate 220 Mg Capsule) 220 mg PO QAM COUNTS INCLUDE 234 BEDS AT THE [facility] Stop: 05/16/20 21:07 Last Admin: 04/21/20 08:12 Dose: 220 mg Documented by: (1) HTN (hypertension) Hypertension type: unspecified Qualified Code(s): I10 - Essential (primary) hypertension
[2020-04-21] MEDS: DONEPEZIL HCL 10 MG TAB PO SCH (21:24)
[2020-04-21] MEDS: lisinopril 20 MG TAB PO SCH (22:09)
[2020-04-22] MEDS: PIPERACILLIN/TAZOBACTAM 3.375 GM in DEXTROSE 5% 100 ML IV SCH ×2 (02:39→09:48)
[2020-04-22] MEDS ORDERED: POLYETHYLENE (MIRALAX) 17 GM PACK PO PRN (06:16)
[2020-04-22] MEDS ORDERED: DOCUSATE SODIUM 100 MG CAP PO STA (06:26)
[2020-04-22] MEDS: LEVOTHYROXINE SODIUM 50 MCG TABLET PO SCH (06:39)
[2020-04-22] MEDS: VENLAFAXINE HCL XR 75 MG CAPXR PO SCH (07:55)
[2020-04-22] MEDS: amLODIPine BESYLATE 5 MG TAB PO SCH (07:57)
[2020-04-22] MEDS: DEXAMETHASONE SOD PHOSPHATE 6 MG in SYRINGE 0 ML IV SCH (07:57)
[2020-04-22] MEDS: CHOLECALCIFEROL 1,000 UNITS 25 MCG TAB PO SCH (07:58)
[2020-04-22] MEDS: PANTOprazole 40 MG TAB PO SCH (07:58)
[2020-04-22] MEDS: ZINC SULFATE 220 MG CAPSULE PO SCH (07:59)
[2020-04-22] MEDS: POTASSIUM CHLORIDE CRTAB 20 MEQ TABCR PO SCH (08:03)
[2020-04-22] MEDS: MEMANTINE HCL 10 MG TAB PO SCH (08:03)
[2020-04-22] MEDS: ENOXAPARIN INJ 40 MG/0.4 ML SYR SQ SCH (10:03)
[2020-04-22] MEDS ORDERED: ONDANSETRON INJ 2 MG/ML 2 ML VIAL IV PRN (13:47)
[2020-04-22] MEDS ORDERED: ATROPINE SULFATE 1% OP SOLN 2 ML BTL SL PRN (13:47)
[2020-04-22] MEDS ORDERED: ACETAMINOPHEN 650 MG SUPP PR PRN (13:47)
[2020-04-22] MEDS ORDERED: MoRPHine SULFATE 2 MG/ML CARP IV PRN (13:47)
[2020-04-22] MEDS ORDERED: MoRPHine SULFATE 2 MG/ML CARP IV STA (13:50)
--- NOTE | 2020-04-22 14:02 | Hospitalist Progress Note ---
Date of Service April 22, 2020 Assessment & Plan (1) Comfort measures only status: Aspiration event with persistent hypoxia. Recurrent aspiration, end stage dementia. Pt nonverbal and with COVID infection. Oxygen sat in 70s despite 100% supplementation. Spoke with son, Tyrel, by phone and discussed options. Transition to comfort care measures. Morphine 2mg IV now. (2) COVID-19: stop decadron to avoid side effects (3) Dementia: stop memantine and donepezil, reorient as necessary. (4) Aspiration pneumonia: stop zosyn, food and fluids as needed. Cont to observe aspiration precautions with feeds. (5) HTN (hypertension): stop all home medications. (6) Hypothyroidism: stop synthroid (7) Depression: cont Effexor per home regimen. (8) DVT prophylaxis: stop Lovenox to improve comfort. Cont Stahl and daily skin and oral care. DNR/DNI=comfort care measures only status Dispo-cont monitoring in the hospital. Consider transition to SNF pending outcomes. Evy Delaney DO [facility] Hospitalist Admission and Anticipated Discharge Date Admission Date: April 16, 2020 Subjective 89 y oM with COVID-19 infection and aspiration pneumonia, end stage dementia -repeat aspiration event during lunch today -oxygen saturations dropped into the 70s and this wasn't able to come up with 100% oxygen face mask -pt is alert but nonverbal consistent with previous examinations -spoke with son by phone and we considered BIPAP, however, there is little QOL here and aspiration is likley to recur. There is also no guarantee NIV would be helpful and this might cause distress and anxiety in this end stage dementia patient. We decided against this. -reviewed care plan with primary nurse. Review of Systems Review of Systems: Unobtainable due to mental health condition (dementia) Physical Exam Physical Exam: CONSTITUTIONAL: thin, frail, elderly, NAD EYES: normal conjunctivae, no scleral icterus ENT: external ear and nose normal, MMM RESPIRATORY: clear to auscultation bilaterally, no crackles, rales or wheezes, some increased respiratory effort CARDIOVASCULAR: regular rate and rhythm, S1 and 2 heard without murmurs, gallops or rubs, no JVD, no peripheral edema GASTROINTESTINAL: soft, nontender, nondistended. MUSCULOSKELETAL: generalized weakness, cannot cooperate with exam so limited. SKIN: warm and dry NEUROLOGIC: CN 2-12 grossly intact, patient is nonverbal and is not following commands Results & Data Results & Data ([facility]) Vital Signs (Past 12 Hours) Vital Signs Temp Pulse Resp BP Pulse Ox Pulse Ox 04/22/20 08:00 93 04/22/20 07:13 36.4 C L 70 16 145/77 H 90 Medications Administered Current Inpatient Medications Acetaminophen (Acetaminophen 650 Mg Supp) 650 mg DC Q6H PRN PRN Reason: Fever 37.8C or greater Stop: 05/22/20 13:46 Albuterol (Albut/Ipratrop 3mg/0.5mg Neb 3 Ml Vial) 3 ml NEB NOW PRN PRN Reason: Shortness Of Breath Or Wheezing Stop: 05/16/20 21:07 Atropine Sulfate (Atropine Sulfate 1% Op Soln 2 Ml Btl) 4 drops SL Q1H PRN PRN Reason: Secretions or Pulm Congestion Stop: 05/22/20 13:46 Lorazepam (Ativan) 0.5 mg in 1 mls @ 1 mls/min IV Q4H PRN PRN Reason: Anxiety/Agitation Stop: 05/22/20 13:46 Morphine Sulfate (Morphine Sulfate 5 Mg/0.25 Ml Udp) 5 mg PO Q3H PRN PRN Reason: Pain or Respiratory Distress Stop: 05/06/20 13:46 Morphine Sulfate (Morphine Sulfate 2 Mg/Ml Carp) 2 mg IV Q4H PRN PRN Reason: Pain or Respiratory Distress Stop: 05/06/20 13:46 Ondansetron HCl (Ondansetron Inj 2 Mg/Ml 2 Ml Vial) 4 mg IV Q4H PRN PRN Reason: Nausea And Vomiting Stop: 05/22/20 13:46 Venlafaxine HCl (Venlafaxine Hcl Xr 75 Mg Capxr) 75 mg PO QAM [facility] Stop: 05/17/20 08:59 Last Admin: 04/22/20 07:55 Dose: 75 mg Documented by: (1) HTN (hypertension) Hypertension type: unspecified Qualified Code(s): I10 - Essential (primary) hypertension
[2020-04-22] MEDS ORDERED: ATROPINE SULFATE 1% OP SOLN 5 ML BTL SL PRN (14:53)
[2020-04-22] MEDS: MoRPHine SULFATE 5 MG/0.25 ML UDP PO PRN ×2 (15:50→23:07)
[2020-04-22] MEDS ORDERED: MoRPHine SULFATE 4 MG/ML 1 ML CARP\\VIAL IV STA (19:25)
[2020-04-23] MEDS: LORazepam 0.5 MG/1 ML VIAL IV PRN ×3 (00:48→12:06)
[2020-04-23] MEDS: MoRPHine SULFATE 2 MG/ML CARP IV PRN ×5 (02:05→13:44)
[2020-04-23] MEDS: VENLAFAXINE HCL XR 75 MG CAPXR PO SCH (07:44)
[2020-04-23] MEDS ORDERED: DOCUSATE SODIUM 100 MG CAP PO SCH (09:00)
--- NOTE | 2020-04-23 14:36 | Hospitalist Progress Note ---
Date of Service April 23, 2020 Assessment & Plan (1) Comfort measures only status: Aspiration event on 04/22 with persistent hypoxia. Recurrent aspiration, end stage dementia. Pt nonverbal and with COVID infection. Oxygen sat in 70s despite 100% supplementation. Spoke with son, Tyrel, by phone and discussed options. Transition to comfort care measures on 04/22. Appears comfortable, transitioned him to a morphine drip. (2) COVID-19: (3) Dementia: (4) Aspiration pneumonia: (5) Depression: (6) DVT prophylaxis: None as on comfort care measures. Cont Stahl and daily skin and oral care. comfort care measures only status, DNR Dispo-cont monitoring in the hospital. Consider transition to SNF pending outcomes. Evy Delaney DO [facility] Hospitalist Admission and Anticipated Discharge Date Admission Date: April 16, 2020 Subjective 89 y oM with COVID-19 infection and aspiration pneumonia, end stage dementia -ROS unable to be obtained as patient is resting with eyes closed -family did zoom computer with him earlier -requiring multiple doses of morphine to appear comfortable -transitioned to a morphine drip for stable dosing. Review of Systems Review of Systems: Unobtainable due to cognitive status Physical Exam Physical Exam: CONSTITUTIONAL: thin, frail, elderly, NAD EYES: normal conjunctivae, no scleral icterus, mostly eyes closed and patient resting. ENT: external ear and nose normal, MMM RESPIRATORY: clear to auscultation bilaterally, no crackles, rales or wheezes, some increased respiratory effort CARDIOVASCULAR: regular rate and rhythm, S1 and 2 heard without murmurs, gallops or rubs, no JVD, no peripheral edema GASTROINTESTINAL: soft, nontender, nondistended. MUSCULOSKELETAL: generalized weakness, cannot perform 2/2 decreased cognition SKIN: warm and dry NEUROLOGIC: lethargic Results & Data Results & Data ([facility]) Medications Administered Current Inpatient Medications Acetaminophen (Acetaminophen 650 Mg Supp) 650 mg ID Q6H PRN PRN Reason: Fever 37.8C or greater Stop: 05/22/20 13:46 Albuterol (Albut/Ipratrop 3mg/0.5mg Neb 3 Ml Vial) 3 ml NEB NOW PRN PRN Reason: Shortness Of Breath Or Wheezing Stop: 05/16/20 21:07 Atropine Sulfate (Atropine Sulfate 1% Op Soln 5 Ml Btl) 4 drops SL Q1H PRN PRN Reason: Secretions or Pulm Congestion Stop: 05/22/20 14:52 Last Admin: 04/23/20 00:13 Dose: 4 drops Documented by: Lorazepam (Ativan) 0.5 mg in 1 mls @ 1 mls/min IV Q4H PRN PRN Reason: Anxiety/Agitation Stop: 05/22/20 13:46 Last Admin: 04/23/20 12:06 Dose: 1 mls/min Documented by: Morphine Sulfate (Morphine Sulfate 5 Mg/0.25 Ml Udp) 5 mg PO Q3H PRN PRN Reason: Pain or Respiratory Distress Stop: 05/06/20 13:46 Last Admin: 04/22/20 23:07 Dose: 5 mg Documented by: Morphine Sulfate (Morphine Sulfate 2 Mg/Ml Carp) 2 mg IV Q2H PRN PRN Reason: Pain or Respiratory Distress Stop: 05/06/20 21:29 Last Admin: 04/23/20 13:44 Dose: 2 mg Documented by: Ondansetron HCl (Ondansetron Inj 2 Mg/Ml 2 Ml Vial) 4 mg IV Q4H PRN PRN Reason: Nausea And Vomiting Stop: 05/22/20 13:46
[2020-04-23] MEDS ORDERED: STAT IV Infusion **Titration per Protocol STA (15:01)
[2020-04-23] MEDS ORDERED: MoRPHine SULF/NSS 250 MG/250 ML BTL IV SCH (15:15)
--- NOTE | 2020-04-24 18:58 | Hospitalist Progress Note ---
Date of Service April 24, 2020 Assessment & Plan (1) Comfort measures only status: Aspiration event on 04/22 with persistent hypoxia. Recurrent aspiration, end stage dementia. Pt nonverbal and with COVID infection. Oxygen sat in 70s despite 100% supplementation. Spoke with son, Tyrel, by phone and discussed options. Transitioned to comfort care measures on 04/22. Appears comfortable on current dose of morphine drip. (2) COVID-19: stop decadron to avoid side effects (3) Dementia: stop memantine and donepezil, reorient as necessary. (4) Aspiration pneumonia: stop zosyn, food and fluids as needed. Cont to observe aspiration precautions with feeds. (5) Depression: (6) DVT prophylaxis: None as on comfort care measures. Cont Stahl and daily skin and oral care. comfort care measures only status, DNR Dispo-cont monitoring in the hospital. Consider transition to SNF pending outcomes. Palliative care is involved and touch base with family today. Nurse updated family via Zoom with the patient. Eyv Delaney DO [facility] Hospitalist Admission and Anticipated Discharge Date Admission Date: April 16, 2020 Subjective 89 y oM with COVID-19 infection and aspiration pneumonia, end stage dementia -ROS unable to be obtained as patient is resting with eyes closed -Appears comfortable on morphine drip. Review of Systems Review of Systems: Unobtainable due to cognitive status Physical Exam Physical Exam: CONSTITUTIONAL: thin, frail, elderly, NAD EYES: normal conjunctivae, no scleral icterus, mostly eyes closed and patient resting. ENT: external ear and nose normal, MMM RESPIRATORY: clear to auscultation bilaterally, no crackles, rales or wheezes, resting with mouth open and abnormal breathing pattern CARDIOVASCULAR: regular rate and rhythm, S1 and 2 heard without murmurs, gallops or rubs, no JVD, no peripheral edema GASTROINTESTINAL: soft, nontender, nondistended. MUSCULOSKELETAL: generalized weakness, cannot perform 2/2 decreased cognition SKIN: warm and dry NEUROLOGIC: lethargic
--- NOTE | 2020-04-24 23:03 | Palliative Care Consultation ---
Date of Consultation April 24, 2020 Assessment & Plan (1) Palliative care encounter: Mr. Calderon is an individual who presented to the [facility] from [facility] after suffering an aspiration event on 04/22 with persistent hypoxia.This gentleman has recurrent aspiration, severe senile degeneration of the brain and is non verbal at baseline. He has an additional PMH that includes: zaid mallory tear, HTN, DJD, and hiatal hernia. He tested positive for COVID-19 on admission. He has been hypoxic with his SPO2 in the 70's on 10L oxymask. Conversation was held and discussed with his son, Tyrel and consideration was had regarding transitioning to comfort measures. Palliative care was consulted to discuss goals of care and offer support. Discussed Mr. Calderon with hospitalist Dr. Evy Delaney. Pt has been placed on Comfort Measures only status. He is now receiving a Morphine gtt infusion. D iscussed with nursing appropriate rationale for increasing gtt: labored breathing, moaning, agitation, furrowed brow. I reached out to patients son, Tyrel [phone] to discuss. He was clear in that his father would not want prolonged care especially if no improvement was anticipated. Life expectancy hours to a day or two. Not stable for D/C out of hospital and not a GIP candidate. THanks for involving us with this gentleman. (2) Hypoxia: (3) Confusion: History of Present Illness Reason for Consultation: Goals of Care Requesting Physician: Dr. Delaney Attending Physician: Evy Delaney, DO History of Present Illness Mr. Calderon is an individual who presented to the [facility] from [facility] after suffering an aspiration event on 04/22 with persistent hypoxia.This gentleman has recurrent aspiration, severe senile degeneration of the brain and is non verbal at baseline. He has an additional PMH that includes: zaid mallory tear, HTN, DJD, and hiatal hernia. He tested positive for COVID-19 on admission. He has been hypoxic with his SPO2 in the 70's on 10L oxymask. Conversation was held and discussed with his son, Tyrel and consideration was had regarding transitio mary to comfort measures. Palliative care was consulted to discuss goals of care and offer support. Please see A/P for further details. Thank you kindly for involving palliative care with this patient. Allergies Allergy/AdvReac Type Severity Reaction Status Date / Time Cipro Allergy Mild 0 Verified 10/16/17 23:30 ciprofloxacin Allergy Unknown WAS ON Verified 02/26/20 18:48 CHART Home Medications Medication Instructions Recorded Confirmed Type amlodipine 5 mg PO QAM 02/06/18 04/16/20 History donepezil 10 mg PO HS 02/06/18 04/16/20 History memantine 10 mg PO QAM 02/06/18 04/16/20 History potassium chloride 10 meq PO BID 02/06/18 04/16/20 History venlafaxine 75 mg PO QAM 02/06/18 04/16/20 History pantoprazole 40 mg PO QAM 09/10/18 04/16/20 History levothyroxine 50 mcg PO QAM 10/01/18 04/16/20 History acetaminophen [Tylenol] 325 mg PO Q4H PRN MDD 3 GRAMS 06/06/19 04/16/20 History APAP/24 HOURS acetaminophen 325 mg PO Q6H PRN MDD 2 GRAMS 04/16/20 04/16/20 History APAP/24 HOURS nutritional supplements [Ensure 1 ea PO TID 04/16/20 04/16/20 History Pudding] Patient History Medical History (Updated 04/24/20 @ 23:08 by GORAN Gallegos) Alteration in cognition Confusion Dementia Diaphragmatic hernia Hip fracture HTN (hypertension) Hypoxia Palliative care encounter Surgical History H/O inguinal hernia repair History of knee replacement History of repair of hip fracture S/P cataract surgery Family History Other ALS (amyotrophic lateral sclerosis) Heart disease Social History Smoking Status: Unknown if ever smoked Hx Alcohol Use: No Hx Substance Use: No Preferred Language: Omani Communication Ability: Unable Communication Ability Comment: pt listens but is non verbal Visual Impairment: No Limitations Property Worker Required: No Beliefs That Will Affect Care: None marital status: Current Living Situation: Personal Care Facility Current Living Situation Comment: [place] current occupational status: retired Other Information That Helps Us Care for You: No Feels Safe at Home: Yes Assistive Devices: None Review of Systems Review of Systems: defered due to covid 19 Physical Exam Physical Exam: deferred d/t COVID -19 pandemic. Discussed with hospitalist. PG Care Time/CCT Total # of Minutes Spent Total Time Spent with Patient: Total time spent is greater than 50% in coordination of care (as documented) at patient's floor/unit and/or counseling patient: 50 Coding Level of Care Code 71818 Inpt Consult Level 2 Diagnoses Palliative care encounter Z51.5 Hypoxia R09.02 Confusion R41.0 Time Spent (min) 50 Time Spent Midlevel Total time spent 50 minutes with > 50% Of that time spent discussing goals and symptom management with pt son and collaborating with IDT.
--- NOTE | 2020-04-25 18:34 | Hospitalist Progress Note ---
Date of Service April 25, 2020 Assessment & Plan (1) Comfort measures only status: Aspiration event on 04/22 with persistent hypoxia. Recurrent aspiration, end stage dementia. Pt nonverbal and with COVID infection. Oxygen sat in 70s despite 100% supplementation. Spoke with son, Tyrel, by phone and discussed options. Transitioned to comfort care measures on 04/22. Appears comfortable on current dose of morphine drip. (2) COVID-19: stop decadron to avoid side effects (3) Dementia: stop memantine and donepezil, reorient as necessary. (4) Aspiration pneumonia: stop zosyn, food and fluids as needed. Cont to observe aspiration precautions with feeds. (5) Depression: cont Effexor per home regimen. (6) DVT prophylaxis: None as on comfort care measures. Cont Stahl and daily skin and oral care. comfort care measures only status, DNR Dispo-cont monitoring in the hospital. Consider transition to SNF pending outcomes. Palliative care is involved and touch base with family today. Nurse updated family via Zoom with the patient. [facility] and Anticipated Discharge Date Admission Date: April 16, 2020 Subjective 89 y oM with COVID-19 infection and aspiration pneumonia, end stage dementia -ROS unable to be obtained as patient is resting with eyes closed -Appears comfortable on morphine drip. Physical Exam Physical Exam: CONSTITUTIONAL: thin, frail, elderly, NAD EYES: normal conjunctivae, no scleral icterus, mostly eyes closed and patient resting. ENT: external ear and nose normal, MMM RESPIRATORY: clear to auscultation bilaterally, no crackles, rales or wheezes, resting with mouth open and abnormal breathing pattern CARDIOVASCULAR: regular rate and rhythm, S1 and 2 heard without murmurs, gallops or rubs, no JVD, no peripheral edema GASTROINTESTINAL: soft, nontender, nondistended. MUSCULOSKELETAL: generalized weakness, cannot perform 2/2 decreased cognition SKIN: warm and dry NEUROLOGIC: lethargic Results & Data Results & Data ([facility]) Medications Administered Current Inpatient Medications Acetaminophen (Acetaminophen 650 Mg Supp) 650 mg ID Q6H PRN PRN Reason: Fever 37.8C or greater Stop: 05/22/20 13:46 Albuterol (Albut/Ipratrop 3mg/0.5mg Neb 3 Ml Vial) 3 ml NEB NOW PRN PRN Reason: Shortness Of Breath Or Wheezing Stop: 05/16/20 21:07 Atropine Sulfate (Atropine Sulfate 1% Op Soln 5 Ml Btl) 4 drops SL Q1H PRN PRN Reason: Secretions or Pulm Congestion Stop: 05/22/20 14:52 Last Admin: 04/23/20 00:13 Dose: 4 drops Documented by: Lorazepam (Ativan) 0.5 mg in 1 mls @ 1 mls/min IV Q4H PRN PRN Reason: Anxiety/Agitation Stop: 05/22/20 13:46 Last Admin: 04/23/20 12:06 Dose: 1 mls/min Documented by: Morphine Sulfate (Morphine Sulf/Nss) 250 mg in 250 mls @ 5 mls/hr IV .Q50H [facility]ILLIAM; Protocol Stop: 05/07/20 15:14 Last Titration: 04/25/20 07:02 Dose: 5 mg/hr, 5 mls/hr Documented by: Ondansetron HCl (Ondansetron Inj 2 Mg/Ml 2 Ml Vial) 4 mg IV Q4H PRN PRN Reason: Nausea And Vomiting Stop: 05/22/20 13:46
--- NOTE | 2020-04-25 23:24 | Discharge Summary ---
Date of Service April 25, 2020 Admission HPI Per Admitting Provider Taken from ER notes, patient offers no reliable history, I called [facility] x 2 no answer, Son Tyrel says DNR. 89 yo male c PMH of MW tear, HTN, Dementia, Hiatal Hernia, DJD, and gastric outlet obstruction who is a resident of [facility]. He is nonverbal at baseline. The patient was having routine vital signs performed this afternoon was found to have a pulse ox of 80%. EMS was summoned. Nursing staff and EMS noted that the patient has not had any hypoxia during ambulance ride here or here in the department. Patient is nonverbal and does respond when spoken to but not in coherent or full sentences. The patient reportedly has had a negative Covid test recently. Here he is covid +. Admission Exam Per Admitting Provider Physical Exam Gen-Awake, NAD, unreliable, Afebrile Head-NCAT, EOMI, PERRLA, Anicteric Sclera, No Posterior Pharyngeal Erythema Neck-Supple, No JVD, No Thyromegaly, No Masses, No LAD, No Bruits Lungs-Clear to Auscultation Bilaterally, No Rales, No Rhonchi, No Wheezing, No Crepitus Chest-No S4, +S1, +S2, No S3, No Murmurs, No Rubs, No Gallops, No Ectopy Abdomen-Soft, Bowel Sounds Present, Non Tender, Non Distended, No Hepatomegaly, No Splenomegaly, No Palpable Masses, No Rebound, No Rigidity, No Guarding Musculoskeletal-Full Range of Motion Bilaterally, No CVAT Extremities-No Cyanosis, No Clubbing, No Edema Nuero-Cranial Nerves II-XII grossly intact, Motor WNL, DTRs WNL, Strength WNL, Non Focal Psych-Demented Principal Diagnosis COVID-19 infection Dementia Aspiration pneumonia Depression Discharge Exam NOTE Contacted by nurse that patient had . Upon my arrival the patient was motionless. He did not respond to verbal stimulation or physical stimulation. Pupils were fixed and dilated. There were no breath sounds and no heart sounds on auscultation. Time of was 7:40 PM. Family was notified by nursing staff. Discharge Data Allergies Allergy/AdvReac Type Severity Reaction Status Date / Time Cipro Allergy Mild 0 Verified 10/16/17 23:30 ciprofloxacin Allergy Unknown WAS ON Verified 02/26/20 18:48 CHART Consultations 12/13/20 17:30 ED Decision to Admit Stat 04/22/20 13:47 Consult Case Management - Discharge Planning Routine Consult Palliative Care Routine Ordered Studies 04/16/20 15:39 CT head/brain wo con Stat Hospital Course (1) Comfort measures only status: (2) COVID-19: (3) Dementia: (4) Aspiration pneumonia: The patient was an 89-year-old man that presented from [facility] dementia unit for acute hypoxia. Work-up revealed positive serology for novel co ronavirus. His risk of aspiration was also very high and he was started on broad-spectrum antibiotics with this in mind after finding of pneumonia on chest x-ray. He was admitted to the hospitalist service and was started on dexamethasone. A discussion about remdesivir took place with his son who felt this was too aggressive as it is still investigational for this purpose. A discussion about convalescent plasma also took place, and again this was deferred for the same reason. The patient continued to improve clinically however, had a significant aspiration event resulting in significant hypoxia and was transitioned to comfort care measures. Within 24 hours he was subsequently placed on a morphine drip and a couple of days later. Total Time Total Time Spent Total Time Spent (In Minutes): 60 Total Time Includes: Examination of the Patient, Discharge Planning, Medication Reconciliation and Communication With Other Providers Discharge Plan Discharge Items Patient Disposition: Discharge Diagnosis: COVID-19 infection Dementia Aspiration pneumonia Depression Addtl Attending Provider Instructions: n/a, pt
--- NOTE | 2020-05-01 07:04 | Coding Query ---
To promote full compliance with coding requirements relating to patient care, provider participation is requested in all cases of press tender uncertainty. Please assist us with the question(s) below: Coding Question(s): The diagnosis below was documented in the Progress Notes through 04/18/20, then subsequently fell off all further documentation. Please indicate if it is still a possible diagnosis or ruled out. Physician's Response(s): POSSIBLE VIRAL PNEUMONIA DUE TO COVID-19 (documentation, as on PN 04/18/20 is, "could be a viral pneumonia due to COVID-19) ( x ) Diagnosed and POA-possible viral pneumonia in setting of covid positivity and/or aspiration pneumonia ( ) Diagnosed and not POA ( ) Ruled out ( ) Other (please specify) MTDD
== END 2020-04-25 21:37 | disposition expired | DRG 177 ==
LOC: ED 14:49 → SUATTDRO 17:18 → 3E 17:18